=== PATIENT | male | born 1960 | race Caucasian/White ===

== ENCOUNTER 2020-10-24 01:30 | Emergency (ER) | payer MEDICARE, MEDICAID, SELFPAY ==
[2020-10-24 01:47] VITALS: BP 132/79; PULSE 60; RESP 18; TEMP 36.7; O2SAT 99; BMI 27.3
--- NOTE | 2020-10-24 01:50 | ECG_ITS ---
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 Measurements Intervals [place] Rate: 61 P: 33 KS: 195 QRS: -19 QRSD: 174 T: 52 QT: 432 QTc: 437 Interpretive Statements SINUS RHYTHM LEFT BUNDLE BRANCH BLOCK [120+ ms QRS DURATION, 80+ ms Q/S IN V1/V2, 85+ ms R IN I/aVL/V5/V6] Compared to ECG 01/28/2019 07:40:37 No significant changes Electronically Signed On 10-25-2020 12:22:39 CDT by Indy Sutton M.D. [id number]
--- NOTE | 2020-10-24 02:00 | W.ED.CHESTPA ---
HPI - Chest Pain General: Chief Complaint: Chest Pain Stated Complaint: ARM PAIN, BOTH SIDES Time Seen by Provider: 10/24/20 01:32 Source: patient Mode of arrival: ambulatory Limitations: other (poor historian) History of Present Illness: HPI narrative: 50-year-old male patient presents to the emergency department with bilateral upper arm pain and pain to the rt chest wall. He reports pain has been off and on for approximately a year, it has not changed. He reports last night and tonight, has not taken anything for the pain, states has not spoke to Dr Sanchez about his pain. He has not taken anything for pain, he is not able to describe his pain. He reports the pain is a, bad hurting . He denies fever chills cough or congestion. He denies heavy lifting or complaints of back pain. He is not able to give a family history, is not able to remember his medication with exception he takes a blood pressure pill. He states does not take aspirin on a daily basis. He denies nausea vomiting, denies pain radiating into his neck. MD complaint: chest pain and chest discomfort Timing of current episode: constant Prior episodes: Yes Onset: during rest Pain location: right chest Pain radiation: right arm and left arm Quality: other ( bad pain ) Relieving factors: nothing Exacerbating factors: nothing Associated symptoms: Reports no associated symptoms; Deny abdominal pain, diaphoresis, dyspnea, fever(s), nausea, palpitations or vomiting Treatment prior to arrival: none Review of Systems General: Reports: 10 or more systems reviewed and unremarkable except in HPI and below Const: Denies: fever(s), chills, body aches, fatigue, malaise or diaphoresis Eyes: Denies: blurry vision or eye redness ENMT: Denies: throat pain, dental pain or disequilibrium Card: Reports: chest pain; Denies: palpitations, irregular heart rhythm, swelling of feet/ankles, lightheadedness, dyspnea on exertion or orthopnea Resp: Denies: dyspnea, productive cough, non-productive cough, wheezing or chest congestion GI: Denies: abdominal pain, nausea, vomiting, hematemesis, heartburn, diarrhea or constipation : Denies: dysuria Musc: Reports: extremity pain (bilateral upper arms); Denies: neck pain or back pain Skin/Breast: Denies: rash or pruritus Neuro: Denies: headache(s), weakness in extremities or behavioral changes Psych: Denies: anxiety or depression Gray/Lymph: Denies: easy bruising PFSH ED PFSH: Medical History HTN (hypertension) Surgical History History of cholecystectomy Physical Exam Const: COMMON NORMALS: no acute distress, patient oriented x3, healthy appearing, alert and well nourished GENERAL APPEARANCE: cooperative, comfortable, well kempt, well developed and well hydrated; not in distress, not anxious, not ill appearing and not frail appearing NUTRITIONAL APPEARANCE: overweight ORIENTATION/CONSCIOUSNESS: Yes awake, Yes oriented to person, Yes oriented to place and Yes oriented to time HENMT: COMMON NORMALS: normocephalic, atraumatic, Normal external nose present and moist oral mucous membranes HEAD & SCALP: normal to inspection, normocephalic and atraumatic FACE & SINUS: normal facial exam and face symmetric NOSE: Normal external nose present, Normal nares present and No nasal polyps present MOUTH: Normal oral and palatal mucosa present, lip normal and tongue normal THROAT: posterior oropharynx normal, tonsils normal and uvula midline Eye: COMMON NORMALS: Equal, round and reactive pupils present and EOMs intact bilaterally GENERAL EYE: appearance normal, both eyes and all related structures PUPIL: Yes Equal, round and reactive pupils present Neck/C-Spine: COMMON NORMALS: full ROM, no lymphadenopathy and supple GENERAL: Yes normal visual inspection and Yes trachea midline CERVICAL SPINE: Yes cervical ROM normal Lymph: LYMPHATIC: no lymphadenopathy noted Chest: COMMONS NORMALS: normal inspection of the chest, normal palpation of entire chest wall and normal inspection of the breasts CHEST: Yes Symmetrical chest wall rise, No localized rib tenderness with anteroposterior compression, Yes tenderness pectoral muscle on the right and No Ecchymosis present Breast/axilla inspection: Yes normal inspection of the breasts Resp: COMMON NORMALS: normal respiratory effort, No retractions, No use of accessory muscles and clear to auscultation bilaterally EFFORT & INSPECTION: Yes able to speak in complete sentences, Yes symmetric chest movement, No respiratory distress, No labored and No audible wheezes AUSCULTATION: clear to auscultation bilaterally Cardio: COMMON NORMALS: regular rate, regular rhythm, S1 normal heart sound present, S2 normal heart sound present and Peripheral pulses 2+ throughout RATE: regular rate RHYTHM: regular rhythm HEART SOUNDS: S1 normal heart sound present and S2 normal heart sound present PERIPHERAL PULSES: Peripheral pulses 2+ throughout GI: COMMON NORMALS: Normal to inspection, nondistended, normoactive bowel sounds present, Soft to palpation and non-tender INSPECTION: Yes normal to inspection, No abdominal wall ecchymosis, No abdominal distension, Yes central obesity and Yes other (Negative Lira's) PALPATION: Yes Soft to palpation, No Guarding due to palpation present (GI) and No Rigid due to palpation : COMMON NORMALS: Yes no CVA tenderness BLADDER/KIDNEY EXAM: Yes no CVA tenderness Back/Pelvis: COMMON NORMALS: no CVA tenderness, thoracic and lumbar spine normal to inspection, no thoracic nor lumbar tenderness, thoraco-lumbar ROM normal and straight leg raise negative bilaterally Extremity: COMMON NORMALS: normal to inspection, full ROM, capillary refill normal, no calf tenderness and no pedal edema GENERAL: Yes normal exam except as noted OTHER: movement, passive and active to the BUE did not reproduce pain, no tenderness to the bilateral upper arms with palpation Neuro: COMMON NORMALS: patient oriented x3 and no focal motor deficits SENSORIUM/ORIENTATION: Yes alert, Yes oriented to person, Yes oriented to place and Yes oriented to time GAIT: Yes Normal gait present MOTOR EXAM: 5/5 motor strength present throughout Psych: COMMON NORMALS: mental status grossly normal, Normal thought process present and cooperative APPEARANCE: Yes well kempt ACTIVITY/MOTOR BEHAVIOR: Yes appropriate eye contact THOUGHT PROCESS: Normal thought process present Skin: COMMON NORMALS: no rashes or lesions noted and turgor normal GENERAL SKIN EXAM: no rashes or lesions noted and turgor normal Course Vital Signs: Vital signs: Vital Signs Temperature 98.1 F 10/24/20 01:47 Pulse Rate 62 10/24/20 02:39 Respiratory Rate 16 10/24/20 02:39 Blood Pressure 132/79 10/24/20 02:39 Pulse Oximetry 95 10/24/20 02:39 MDM - Chest Pain MDM Narrative: Medical decision making narrative: 60-year-old male patient presents to the emergency department with bilateral upper arm pain and pain to the right chest wall. EKG with left bundle branch block with rate of 61; blood pressure was normal, vital signs were normal, he remained sinus rhythm to the monitor. He was medicated with Toradol for pain. Prescription for ibuprofen was provided, advised to follow-up with his primary care provider for further evaluation. He did not exhibit nausea vomiting, shortness of breath nor did he complained of pain radiating to the neck. He does have history of hypertension, well controlled, family history negative for cardiac disease, heart score 3. Patient symptoms are less likely from cardiac origin. Patient was diagnosed with myalgia and chest pain, probable musculoskeletal. Symptoms have been present for 1 year and have not changed. Chest x-ray without acute disease. Lab Data: Labs: Lab Results 10/24/20 10/24/20 10/24/20 Range/Units 02:00 02:00 02:00 WBC 10.9 H (4.0-10.0) 10^3/ uL RBC 4.50 (4.1-5.3) 10^6/u L Hgb 14.6 (11.7-16.6) g/dL Hct 43.8 (42.0-52.0) % MCV 97.3 H (80-94) fL MCH 32.4 (28.0-34.0) pg MCHC 33.3 (30.0-36.0) g/dL RDW 12.3 (12.1-15.1) % Plt Count 196 (130-400) 10^3/c mm MPV 12.6 H (7.4-10.4) fL Neut % (Auto) 71.3 % Lymph % (Auto) 17.2 % Patrick % (Auto) 6.8 % Eos % (Auto) 3.9 % Baso % (Auto) 0.6 % Neut # (Auto) 7.76 H (1.8-7.7) 10^3/u L Lymph # (Auto) 1.9 (0.8-4.8) 10^3/u L Patrick # (Auto) 0.7 (0.2-0.9) 10^3/u L Eos # (Auto) 0.4 (0.0-0.8) 10^3/u L Baso # (Auto) 0.1 (0.0-0.1) 10^3/u L Nucleated RBC % (a uto) 0 % Nucleated RBCs # 0.0 /100WBC Sodium 139 (136-145) mmol/L Potassium 3.5 (3.5-5.1) mmol/L Chloride 100 (98-107) mmol/L Carbon Dioxide 29 (22-29) mmol/L Anion Gap 13.5 (5-19) BUN 14 (8-23) mg/dL Creatinine 0.9 (0.7-1.2) mg/dL GFR Calculation 85.8 L (90-130) mL/min Glucose 97 (65-115) mg/dL Calculated Osmolal ity 288 (285-295) mOsm/k g Calcium 8.3 L (8.5-10.5) mg/dL Total Bilirubin 0.3 (0.15-1.2) mg/dL AST 21 (0-40) U/L ALT 31 (0-41) U/L Alkaline Phosphata se 126 (40-130) IU/L Troponin T Baselin e 9 (0-15) ng/L Total Protein 6.5 L (6.6-8.7) g/dL Albumin 4.1 (3.5-5.2) g/dL Globulin 2.4 (1.3-4.6) g/dL Lipase 24 (13-60) U/L Discharge Plan Discharge Patient Disposition: Home Clinical Impression: Myalgia Chest pain Qualifiers: Chest pain type: other chest pain Qualified Code(s): R07.89 - Other chest pain Condition: Stable Prescriptions: New IBU 600 mg tablet 600 mg PO TID PRN (Reason: pain) Qty: 20 RF: 0 Discharge Orders: Discharge ED (Routine); Ordered 10/24/20 Ordered By: Ariadna Brewer Referrals: Matthew Sanchez MD [Primary Care Provider] - Discharge Diet: Cardiac Discharge Activity: Resume usual activity Patient Instructions: Chest Pain - Noncardiac, Chest Pain (ED), Opioid Safety Activity Restrictions/Additional Instructions: Follow-up with Dr. Sanchez this week for reevaluation Take ibuprofen with food, may take Tylenol as needed for pain Return to the emergency department if you develop worsening symptoms such as shortness of breath, chest pain that worsens with exertion, pain that radiates into your jaw or neck or inability to catch her breath Coding Level of Care Code ED Package Center Supervisor for Chg Fwd Exam Comprehensive
--- NOTE | 2020-10-24 02:01 | XRR_ITS ---
PROCEDURE INFORMATION: Exam: XR Chest Exam date and time: 10/24/2020 2:19 AM Age: 60 years old Clinical indication: Chest pain; Type not specified; Prior surgery; Surgery type: Gb; Patient HX: Cp and bilateral arm pain x 1 year, worse tonight TECHNIQUE: Imaging protocol: XR of the chest. Views: 1 view. COMPARISON: CR Chest 1 [place] [id number] 01/28/2019 8:01 AM FINDINGS: Lungs: Unremarkable. No consolidation. Pleural spaces: Unremarkable. No pleural effusion. No pneumothorax. Heart/Mediastinum: Unremarkable. No cardiomegaly. Bones/joints: Unremarkable. XR/XR chest 1V portable [id number] IMPRESSION: No acute findings. Stable chest radiograph compared with 01/28/2019.
[2020-10-24 02:09] LABS: Basophils # 0.1 10^3/uL (0.0-0.1); Basophils % 0.6 %; Eosinophils # 0.4 10^3/uL (0.0-0.8); Eosinophils % 3.9 %; Hematocrit 43.8 % (42.0-52.0); Hemoglobin 14.6 g/dL (11.7-16.6); Lymphocytes # 1.9 10^3/uL (0.8-4.8); Lymphocytes % 17.2 %; Mean Corpuscular HGB Conc 33.3 g/dL (30.0-36.0); Mean Corpuscular Hemoglobin 32.4 pg (28.0-34.0); Mean Corpuscular Volume 97.3 fL (80-94); Mean Platelet Volume 12.6 fL (7.4-10.4); Monocytes # 0.7 10^3/uL (0.2-0.9); Monocytes % 6.8 %; Neutrophils # 7.76 10^3/uL (1.8-7.7); Neutrophils % 71.3 %; Nucleated Red Blood Cells % 0 %; Platelet Count 196 10^3/cmm (130-400); Red Cell Distribution Width 12.3 % (12.1-15.1); White Blood Count 10.9 10^3/uL (4.0-10.0)
[2020-10-24 02:32] LABS: Alanine Aminotransferase 31 U/L (0-41); Albumin Level 4.1 g/dL (3.5-5.2); Alkaline Phosphatase 126 IU/L (40-130); Anion Gap 13.5 (5-19); Aspartate Amino Transferase 21 U/L (0-40); Blood Urea Nitrogen 14 mg/dL (8-23); Calcium 8.3 mg/dL (8.5-10.5); Carbon Dioxide 29 mmol/L (22-29); Chloride 100 mmol/L (98-107); Globulin 2.4 g/dL (1.3-4.6); Glomerular Filtration Rate 85.8 mL/min (90-130); Glucose 97 mg/dL (65-115); Lipase 24 U/L (13-60); Osmolality Calculated 288 mOsm/kg (285-295); Potassium 3.5 mmol/L (3.5-5.1); Sodium 139 mmol/L (136-145); Total Bilirubin 0.3 mg/dL (0.15-1.2); Total Protein 6.5 g/dL (6.6-8.7)
[2020-10-24 02:34] LABS: Troponin(5th) Baseline 9 ng/L (0-15)
[2020-10-24 02:39] VITALS: BP 132/79; PULSE 62; RESP 16; O2SAT 95
[2020-10-24] MEDS: aspirin 81 mg Chew Tablet 324 MG PO (02:41)
[2020-10-24] MEDS: acetaminophen 500 mg Tablet 1000 MG PO (03:05)
[2020-10-24 03:10] VITALS: BP 119/70; PULSE 62; RESP 18; O2SAT 98
== END 2020-10-24 03:11 | disposition home or self-care (01) ==
PROVIDERS: Emergency Provider Nurse Practitioner Family; PCP Family Medicine
DX: R07.89 Other chest pain (principal); M79.10 Myalgia, unspecified site; I10 Essential (primary) hypertension
CPT/HCPCS: 71045; 80053; 83690; 84484; 85025; 93005; 99283

== ENCOUNTER 2020-11-29 08:11 | Outpatient (CLI) | payer MEDICARE, MEDICAID, SELFPAY ==
[2020-11-29 09:19] VITALS: BMI 26.6
--- NOTE | 2020-11-29 09:31 | ECG_ITS ---
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 Interpretive Statements Name of study Lexiscan stress test Indication: New onset left bundle branch block PROCEDURE: At the baseline, the blood pressure was 118/77 mmHg, oxygen saturation 96% with a heart rate of 64 bpm. The electrocardiogram showed normal sinus rhythm, normal axis. Left bundle branch block. The Lexiscan was infused over a period of 20 seconds. A total of 0.4 milligrams of Lexiscan was infused. The stress phase was continued for a total of 5 minutes. Heart rate at the end of the stress phase was 69 bpm, oxygen saturation 95% with a blood pressure of 130/77 mmHg. The EKG at the peak infusion revealed sinus rhythm with left bundle branch block. Sestamibi was injected 20 seconds after the Lexiscan infusion. Blood pressure at the end of the recovery phase was 130/68 mmHg, oxygen saturation 96% with a heart rate of 74 beats per minute. CONCLUSION: 1. Nondiagnostic EKG with LexiScan infusion given baseline left bundle branch block. 2. No LexiScan induced chest pain or cardiac arrhythmia. 3. Normal blood pressure and heart rate response. 4. Sestamibi/sestamibi perfusion scan pending; see separate report. Electronically Signed On 12-03-2020 18:05:40 CDT by Indy Sutton M.D. [id number]
--- NOTE | 2020-11-29 09:31 | NMCV_ITS ---
NM alexander perf SPECT r/s* [id number] Chris Guevara Age: 60 Gender: M : 1960 Exam Date: 11/29/2020 09:56 Ordering Phys: Duran Calhoun M.D ([email or web address]) Technologist: MEENA Hernandez Exam Location: [facility] Indications: NEW ONSET LBBB STRESS TEST Please see separate stress test report in [facility] for full findings IMAGE PROTOCOL Rest/Stress 1 Lexiscan Day Radiopharmaceutical Dose (mCi) Administration Site Administered by Rest: Tc-99m 10.8 IV MEENA Walker Sestamibi Stress:Tc-99m 32.7 IV MEENA Walker Sestamibi Rest: 29-Nov-2020 60 Discovery 630 Stress: 29-Nov-2020 30 Discovery 630 0.4mg Lexiscan. Supine position only as patient was unable to lay prone. SPECT RESULTS Technical Quality: Good Raw Data Analysis: Normal Image Corrections: No attenuation or motion correction applied Summed Stress Score: 7 Summed Rest Score: 16 Summed Difference Score: 0 PERFUSION FINDINGS There is a large in size, fixed perfusion defect in the apical, apical septal, apical lateral and apical inferior silverio that improves with stress. This is likely secondary to attenuation artifact vs prior infarct. No evidence of ischemia FUNCTIONAL RESULTS (calculated via Gated SPECT) Stress Image LV EF (%): 70 Stress EDV (mL):84 TID: 1.06 Stress ESV (mL):25 FUNCTIONAL FINDINGS: LV systolic function is normal. Moderate hypokinesis of the apical wall is noted IMPRESSIONS 1. Abnormal myocardial perfusion imaging with infarct vs attenuation artifact noted in the apical, apical septal, apical lateral and apical inferior silverio. No evidence of ischemia 2. LV systolic function is overall normal, however there is hypokinesis of the apical wall noted Duran Calhoun MD (Electronically Signed) Final Date: 01 Dec 2020 14:06 S
--- NOTE | 2020-11-29 09:44 | PC.NURSE ---
orders found from both dr osborne and dr page office. due to dr page orders being the newest date we will go ahead with the [facility]. called dr osborne nurse and let them know of the change in orders.
[2020-11-29 10:41] VITALS: BP 130/68; PULSE 75
[2020-11-29] MEDS: regadenoson 0.4 Mg/5 ml Syringe IVP (10:42)
== END 2020-11-29 08:12 | disposition home or self-care (01) ==
LOC: RAD 08:14 → CDL 09:09
PROVIDERS: PCP Family Medicine; Visit Provider Family Medicine
DX: I44.7 Left bundle-branch block, unspecified (principal)
CPT/HCPCS: 78452; 93017; A9500; J2785

== ENCOUNTER 2020-12-08 07:45 | Outpatient (CLI) | payer MEDICARE, MEDICAID, SELFPAY ==
--- NOTE | 2020-12-08 08:00 | USCV_ITS ---
Chris Guevara Age: 60 Gender: M : 1960 Exam Date: 12/08/2020 08:16 Ordering Phys: Matthew Sanchez MD Technologist: Davida Irving [place] [facility] [place] Indication: NEW ONSET LEFT BUNDLE BRANCH BLOCK BP: 130 / 67 HR: 64 Rhythm: Sinus Technical Quality: Adequate MEASUREMENTS (Male / Female) Normal Values 2D ECHO LV Diastolic Diameter PLAX 3.8 cm 4.2 - 5.9 / 3.9 - 5.3 cm LV Systolic Diameter PLAX 2.5 cm IVS Diastolic Thickness 1.3 cm 0.6 - 1.0 / 0.6 - 0.9 cm IVS Systolic Thickness 2.0 cm LVPW Diastolic Thickness 1.8 cm 0.6 - 1.0 / 0.6 - 0.9 cm LVPW Systolic Thickness 1.5 cm LVOT Diameter 2.0 cm LV Ejection Fraction 2C AL 46.1 % LA Diameter 3.5 cm LA Width 3.2 cm LA Height 4.2 cm RA Width 3.2 cm RA Height 2.8 cm Aorta at Sinotubular Diameter 2.4 cm M-MODE LV Diastolic Diameter MM 5.1 cm 4.2 - 5.9 / 3.9 - 5.3 cm LV Systolic Diameter MM 4.2 cm LV Ejection Fraction MM Teich 36.0 % IVS Diastolic Thickness MM 1.3 cm 0.6 - 1.0 / 0.6 - 0.9 cm IVS Systolic Thickness MM 1.9 cm LVPW Diastolic Thickness MM 1.5 cm 0.6 - 1.0 / 0.6 - 0.9 cm LVPW Systolic Thickness MM 2.1 cm Aortic Annulus Diameter 3.3 cm LA Ao Ratio MM 1.0 MV E Point Septal Separation 0.2 cm DOPPLER AV Peak Velocity 109.0 cm/s LVOT Peak Velocity 90.0 cm/s AV Area Cont Eq vti 2.7 cm squared AV Area Cont Eq pk 2.6 cm squared MV Peak Velocity 97.0 cm/s MV Area PHT 3.9 cm squared Mitral E to A Ratio 0.8 MV E' Velocity 32.5 cm/s Mitral E to MV E' Ratio 9.1 Mitral E to LV E' Lateral Ratio 8.8 Mitral E to LV E' Septal Ratio 9.5 TR Peak Velocity 121.0 cm/s TR Peak Gradient 5.9 mmHg TV Peak E Velocity 45.0 cm/s Right Atrial Pressure 3.0 mmHg Pulmonary Artery Systolic Pressu 8.9 mmHg PV Peak Velocity 130.0 cm/s RV Acceleration Time 0.1 s RV Ejection Time 0.3 s RV AcT/ET 0.3 FINDINGS Left Ventricle Normal left ventricular cavity size. Mildly reduced left ventricular systolic function. Global wall hypokinesis. Left ventricular ejection fraction is estimated at 50 %. Grade I/IV diastolic dysfunction (abnormal relaxation filling pattern), normal to mildly elevated filling pressures. Right Ventricle The right ventricle is normal in size and function. Right Atrium The right atrium is normal in size. Left Atrium The left atrium is normal in size. Mitral Valve Structurally normal mitral valve without significant stenosis or prolapse. There is no mitral regurgitation. Aortic Valve Structurally normal aortic valve without significant sclerosis or stenosis. There is no aortic regurgitation. Tricuspid Valve Structurally normal tricuspid valve without significant stenosis or regurgitation. Pulmonary artery systolic pressure is normal. Pulmonic Valve Structurally normal pulmonic valve without significant stenosis. There is no pulmonic regurgitation. Pericardium Normal pericardium without effusion. Aorta Normal ascending aorta dimension. CONCLUSIONS 1-Normal left ventricular cavity size. Mildly reduced left ventricular systolic function. Global wall hypokinesis. Left ventricular ejection fraction is estimated at 50 %. Grade I/IV diastolic dysfunction (abnormal relaxation filling pattern), normal to mildly elevated filling pressures. 2-No significant valve abnormalities. 3-There is no pericardial effusion. 4-Pulmonary artery systolic pressure is within normal limits. 5-Right atrial pressure is around 5 mm of mercury. 6-No significant change since the prior echocardiogram study of 04/16/2017. Ricardo Aj MD (Electronically Signed) Final Date: 10 December 2020 14:09 S
== END 2020-12-08 07:46 | disposition home or self-care (01) ==
LOC: RAD 07:49
PROVIDERS: PCP Family Medicine; Visit Provider Family Medicine
DX: I44.7 Left bundle-branch block, unspecified (principal)
CPT/HCPCS: 93306

== ENCOUNTER 2021-02-19 23:34 | Emergency (ER) | payer MEDICARE, MEDICAID, SELFPAY ==
[2021-02-19 23:35] VITALS: BP 118/62; PULSE 73; RESP 17; TEMP 36.6; O2SAT 94; BMI 25.9
--- NOTE | 2021-02-19 23:46 | ECG_ITS ---
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 Measurements Intervals [place] Rate: 68 P: 22 VT: 192 QRS: -19 QRSD: 165 T: 96 QT: 436 QTc: 464 Interpretive Statements SINUS RHYTHM LEFT BUNDLE BRANCH BLOCK [120+ ms QRS DURATION, 80+ ms Q/S IN V1/V2, 85+ ms R IN I/aVL/V5/V6] Compared to ECG 10/24/2020 02:00:07 No significant changes Electronically Signed On 02-20-2021 23:55:44 CDT by Alka Orourke M.D. [id number]
--- NOTE | 2021-02-19 23:46 | XRR_ITS ---
PROCEDURE INFORMATION: Exam: XR Chest Exam date and time: 02/19/2021 11:46 PM Age: 61 years old Clinical indication: Pain; Left-sided; Additional info: Cp TECHNIQUE: Imaging protocol: XR of the chest. Views: 1 view. COMPARISON: CR XR chest 1V portable [id number] 10/24/2020 2:18 AM FINDINGS: Lungs: Lungs are clear bilaterally. Pleural spaces: No pleural effusion. No pneumothorax. Heart/Mediastinum: Stable mild enlargement of the cardiac silhouette. Mediastinal contours are unremarkable. Bones/joints: Stable deformity of the proximal right humerus suspicious for sequela of remote trauma. XR/XR chest 1V portable [id number] IMPRESSION: 1. No acute cardiopulmonary process. 2. Incidental/nonacute findings are listed in the report.
[2021-02-19 23:51] VITALS: BP 118/62; PULSE 64; RESP 12; O2SAT 93
[2021-02-19 23:59] LABS: Basophils # 0.1 10^3/uL (0.0-0.1); Basophils % 0.6 %; Eosinophils # 0.4 10^3/uL (0.0-0.8); Eosinophils % 4.4 %; Hematocrit 43.8 % (42.0-52.0); Hemoglobin 14.6 g/dL (11.7-16.6); Lymphocytes # 1.8 10^3/uL (0.8-4.8); Lymphocytes % 18.7 %; Mean Corpuscular HGB Conc 33.3 g/dL (30.0-36.0); Mean Corpuscular Hemoglobin 32.6 pg (28.0-34.0); Mean Corpuscular Volume 97.8 fl (80-94); Mean Platelet Volume 13.2 fL (7.4-10.4); Monocytes # 0.6 10^3/uL (0.2-0.9); Monocytes % 6.5 %; Neutrophils # 6.71 10^3/uL (1.8-7.7); Neutrophils % 69.5 %; Nucleated Red Blood Cells % 0 %; Platelet Count 178 10^3/cmm (130-400); Red Blood Count 4.48 10^6/uL (4.1-5.3); Red Cell Distribution Width 12.4 % (12.1-15.1); White Blood Count 9.7 10^3/uL (4.0-10.0)
[2021-02-20 00:06] LABS: D Dimer 0.37 ug/mIFEU (0-0.59)
--- NOTE | 2021-02-20 00:11 | ED_ITS ---
HPI - Chest Pain General: Chief Complaint: Chest Pain Stated Complaint: CP Time Seen by Provider: 02/19/21 23:46 History of Present Illness: HPI narrative: 61-year-old male with a history of hypertension. He also has a history of a left bundle branch block. He is experienced chest pain today, mainly left-sided chest pain and left-sided arm heaviness. He does not have a prior history of coronary disease. He has a recent Lexiscan that was negative for inducible ischemia. Pain is improved now, but he says is still mildly there. He received aspirin and nitroglycerin in route. He does states that he has had panic attacks . He lost his father recently. He has a history of developmental delay, and lives with his at [facility]. MD complaint: chest pain Pertinent past history: other Onset (ago): hour(s) Timing of current episode: episodic and still present Prior episodes: Yes Onset: during rest Pain location: substernal and left chest Pain radiation: left arm Severity: moderate Quality: tightness and aching Relieving factors: nothing Exacerbating factors: nothing Associated symptoms: Reports dyspnea; Deny abdominal pain, diaphoresis, fever(s), leg edema, nausea, palpitations or vomiting Treatment prior to arrival: aspirin and nitroglycerin Review of Systems Const: Denies: fever(s) or diaphoresis Eyes: Denies: change in vision Card: Denies: palpitations Resp: Reports: dyspnea; Denies: productive cough or non-productive cough GI: Denies: abdominal pain, nausea or vomiting Neuro: Denies: numbness in extremities [facility] ED PFSH: Medical History (Updated 02/20/21 @ 03:24 by Grant Moser DO) HTN (hypertension) Surgical History History of cholecystectomy Course Vital Signs: Vital signs: Vital Signs Temperature 97.9 F 02/19/21 23:35 Pulse Rate 70 02/20/21 03:20 Respiratory Rate 13 02/20/21 03:20 Blood Pressure 158/62 02/20/21 03:20 Pulse Oximetry 92 02/20/21 03:20 MDM - Chest Pain MDM Narrative: Medical decision making narrative: EKG shows normal sinus rhythm with left bundle branch block, which is not new for this patient. There are no acute ST changes.. Troponin did not elevated 2 hours. Other laboratory is benign. Chest x-ray is negative. His pain is improved. He'll be allowed home Lab Data: Labs: Lab Results 02/19/21 02/19/21 02/19/21 Range/Units 23:18 23:18 23:18 WBC 9.7 (4.0-10.0) 10^3/ uL RBC 4.48 (4.1-5.3) 10^6/u L Hgb 14.6 (11.7-16.6) g/dL Hct 43.8 (42.0-52.0) % MCV 97.8 H (80-94) fl MCH 32.6 (28.0-34.0) pg MCHC 33.3 (30.0-36.0) g/dL RDW 12.4 (12.1-15.1) % Plt Count 178 (130-400) 10^3/c mm MPV 13.2 H (7.4-10.4) fL Neut % (Auto) 69.5 % Lymph % (Auto) 18.7 % Mckenzie % (Auto) 6.5 % Eos % (Auto) 4.4 % Baso % (Auto) 0.6 % Neut # (Auto) 6.71 (1.8-7.7) 10^3/u L Lymph # (Auto) 1.8 (0.8-4.8) 10^3/u L Mckenzie # (Auto) 0.6 (0.2-0.9) 10^3/u L Eos # (Auto) 0.4 (0.0-0.8) 10^3/u L Baso # (Auto) 0.1 (0.0-0.1) 10^3/u L Nucleated RBC % (a uto) 0 % Nucleated RBCs # 0.0 /100WBC D-Dimer 0.37 (0-0.59) ug/mIFE U Sodium 141 (136-145) mmol/L Potassium 3.7 (3.5-5.1) mmol/L Chloride 102 (98-107) mmol/L Carbon Dioxide 30 H (22-29) mmol/L Anion Gap 12.7 (5-19) BUN 11 (8-23) mg/dL Creatinine 0.8 (0.7-1.2) mg/dL GFR Calculation 98.0 (90-130) mL/min Glucose 118 H (65-115) mg/dL Calculated Osmolal ity 292 (285-295) mOsm/k g Calcium 8.3 L (8.5-10.5) mg/dL Total Bilirubin 0.3 (0.15-1.2) mg/dL AST 15 (0-40) U/L ALT 17 (0-41) U/L Alkaline Phosphata se 118 (40-130) IU/L Creatine Kinase 52 (39-308) U/L Troponin T Baselin e (0-15) ng/L Troponin T 120 Min [place] (0-15) ng/L Delta Troponin T (0-10) ABS# NT-Pro-B Natriuret Pep 11 (0-125) pg/mL Total Protein 6.3 L (6.6-8.7) g/dL Albumin 4.1 (3.5-5.2) g/dL Globulin 2.2 (1.3-4.6) g/dL 02/19/21 02/20/21 Range/Units 23:18 01:25 WBC (4.0-10.0) 10^3/ uL RBC (4.1-5.3) 10^6/u L Hgb (11.7-16.6) g/dL Hct (42.0-52.0) % MCV (80-94) fl MCH (28.0-34.0) pg MCHC (30.0-36.0) g/dL RDW (12.1-15.1) % Plt Count (130-400) 10^3/c mm MPV (7.4-10.4) fL Neut % (Auto) % Lymph % (Auto) % Mckenzie % (Auto) % Eos % (Auto) % Baso % (Auto) % Neut # (Auto) (1.8-7.7) 10^3/u L Lymph # (Auto) (0.8-4.8) 10^3/u L Mckenzie # (Auto) (0.2-0.9) 10^3/u L Eos # (Auto) (0.0-0.8) 10^3/u L Baso # (Auto) (0.0-0.1) 10^3/u L Nucleated RBC % (a uto) % Nucleated RBCs # /100WBC D-Dimer (0-0.59) ug/mIFE U Sodium (136-145) mmol/L Potassium (3.5-5.1) mmol/L Chloride (98-107) mmol/L Carbon Dioxide (22-29) mmol/L Anion Gap (5-19) BUN (8-23) mg/dL Creatinine (0.7-1.2) mg/dL GFR Calculation (90-130) mL/min Glucose (65-115) mg/dL Calculated Osmolal ity (285-295) mOsm/k g Calcium (8.5-10.5) mg/dL Total Bilirubin (0.15-1.2) mg/dL AST (0-40) U/L ALT (0-41) U/L Alkaline Phosphata se (40-130) IU/L Creatine Kinase (39-308) U/L Troponin T Baselin e 8 (0-15) ng/L Troponin T 120 Min [place] 6.49 (0-15) ng/L Delta Troponin T -1.51 L (0-10) ABS# NT-Pro-B Natriuret Pep (0-125) pg/mL Total Protein (6.6-8.7) g/dL Albumin (3.5-5.2) g/dL Globulin (1.3-4.6) g/dL Discharge Plan Discharge Patient Disposition: Home Clinical Impression: Chest pain Qualifiers: Chest pain type: unspecified Qualified Code(s): R07.9 - Chest pain, unspecified Condition: Stable Prescriptions: No Action lisinopril 20 mg tablet 20 mg PO DAILY RF: 0 alprazolam 0.25 mg tablet 0.25 mg PO DAILY RF: 0 allopurinol 300 mg tablet 300 mg PO DAILY RF: 0 metoprolol succinate 25 mg tablet extended release 24 hr 25 mg PO DAILY RF: 0 rosuvastatin 20 mg tablet 20 mg PO DAILY RF: 0 chlorthalidone 25 mg tablet 12.5 mg PO DAILY RF: 0 Discharge Orders: Discharge ED (Routine); Ordered 02/20/21 Ordered By: Grant Moser Referrals: Matthew Sanchez MD [Primary Care Provider] - 1-3 days Patient Instructions: Chest Pain (ED) Activity Restrictions/Additional Instructions: Return for worsening chest pain, shortness of breath, fever greater than 100, cough, any other concerning symptoms. Coding Level of Care Code ED Brimming Machine Operator for Bekah Pollock
[2021-02-20 00:16] LABS: Troponin(5th) Baseline 8 ng/L (0-15)
[2021-02-20 00:24] LABS: Alanine Aminotransferase 17 U/L (0-41); Albumin Level 4.1 g/dL (3.5-5.2); Alkaline Phosphatase 118 IU/L (40-130); Anion Gap 12.7 (5-19); Aspartate Amino Transferase 15 U/L (0-40); Blood Urea Nitrogen 11 mg/dL (8-23); Calcium 8.3 mg/dL (8.5-10.5); Carbon Dioxide 30 mmol/L (22-29); Chloride 102 mmol/L (98-107); Creatine Phosphokinase 52 U/L (39-308); Globulin 2.2 g/dL (1.3-4.6); Glucose 118 mg/dL (65-115); NT Pro B Type Natriuretic Pept 11 pg/mL (0-125); Osmolality Calculated 292 mOsm/kg (285-295); Potassium 3.7 mmol/L (3.5-5.1); Sodium 141 mmol/L (136-145); Total Bilirubin 0.3 mg/dL (0.15-1.2); Total Protein 6.3 g/dL (6.6-8.7)
[2021-02-20] MEDS: ondansetron 2 mg/ML SDV 2 mL 4 MG IVP (01:02)
[2021-02-20 01:06] VITALS: BP 100/63; PULSE 70; RESP 16; RESP 17; O2SAT 95; O2SAT 96
[2021-02-20] MEDS: morphine 4 mg/mL SDV 1 mL 2 MG IVP (01:06)
[2021-02-20 01:45] VITALS: BP 97/64; PULSE 70; RESP 14; O2SAT 94
[2021-02-20 01:59] LABS: Troponin 5 2HR 6.49 ng/L (0-15)
[2021-02-20 02:01] LABS: Troponin 5 2HR Delta -1.51 ABS# (0-10)
[2021-02-20 03:20] VITALS: BP 158/62; PULSE 70; RESP 13; O2SAT 92
[2021-02-20 04:45] VITALS: BP 158/62; PULSE 70; RESP 13; O2SAT 94
--- NOTE | 2021-02-20 05:46 | ECG_ITS ---
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 Measurements Intervals [place] Rate: 64 P: 36 [place]: 181 QRS: -21 QRSD: 161 T: 85 QT: 414 QTc: 428 Interpretive Statements SINUS RHYTHM LEFT BUNDLE BRANCH BLOCK [120+ ms QRS DURATION, 80+ ms Q/S IN V1/V2, 85+ ms R IN I/aVL/V5/V6] Compared to ECG 10/24/2020 02:00:07 No significant changes Electronically Signed On 02-21-2021 0:07:08 CDT by Alka Orourke M.D. [id number]
== END 2021-02-20 04:46 | disposition home or self-care (01) ==
PROVIDERS: Emergency Provider Emergency Medicine; PCP Family Medicine
DX: R07.9 Chest pain, unspecified (principal); I10 Essential (primary) hypertension
CPT/HCPCS: 71045; 80053; 82550; 83880; 84484; 85025; 85378; 93005; 96374; 96375; 99284; J2270; J2405

== ENCOUNTER 2021-03-30 08:57 | Emergency (ER) | payer MEDICARE, MEDICAID, SELFPAY ==
[2021-03-30 09:02] VITALS: BP 127/75; PULSE 78; RESP 16; TEMP 36.7; O2SAT 95
--- NOTE | 2021-03-30 09:02 | W.ED.AMS ---
HPI - Altered Mental Status General: Chief Complaint: Altered Mental Status Stated Complaint: CONFUSION Time Seen by Provider: 03/30/21 09:02 History of Present Illness: HPI narrative: 61-year-old male presents to the emergency room via EMS with a complaint of confusion. He was at work per his report became confused and was brought in via EMS. There is no family members at the bedside no other report given. Patient is able to recognize me from her previous encounter. He is also able to give time date place. Is able remember he is at work but cannot tell me specific details. He denies any history of chest pain abdominal pain or shortness of breath. He denies any trauma. He denies any history of seizures. No recent fever cough short of breath. MD complaint: altered mental status and confusion Onset (ago): minute(s) Severity: moderate Associated symptoms: Deny auditory hallucinations, visual hallucinations, delusions, depression, homicidal ideation, racing thoughts or suicidal ideation Review of Systems Const: Denies: fever(s), chills, body aches, change in appetite, fatigue or malaise ENMT: Denies: throat pain, ear or mastoid pain, nasal discharge or nasal congestion Card: Denies: chest pain, edema, dyspnea on exertion or orthopnea Resp: Denies: dyspnea, productive cough or non-productive cough GI: Denies: abdominal pain, nausea, vomiting, hematemesis, coffee ground emesis, diarrhea, constipation, bloating, hematochezia or melena : Denies: flank pain, dysuria, urinary frequency or urinary urgency Skin/Breast: Denies: rash or pruritus Psych: Denies: depression, visual hallucinations, auditory hallucinations, suicidal ideation or homicidal ideation [facility] ED PFSH: Medical History HTN (hypertension) Surgical History History of cholecystectomy Physical Exam Const: COMMON NORMALS: no acute distress GENERAL APPEARANCE: cooperative and comfortable HENMT: COMMON NORMALS: normocephalic, atraumatic and hearing grossly normal bilaterally HEAD & SCALP: normocephalic and atraumatic Neck/C-Spine: COMMON NORMALS: full ROM, no lymphadenopathy, supple and no JVD Lymph: LYMPHATIC: no lymphadenopathy noted and no lymphedema noted Resp: COMMON NORMALS: normal respiratory effort, No retractions, No use of accessory muscles and clear to auscultation bilaterally AUSCULTATION: clear to auscultation bilaterally Cardio: COMMON NORMALS: no JVD, regular rate, regular rhythm and No murmurs present (Cardio) RATE: regular rate RHYTHM: regular rhythm GI: COMMON NORMALS: Soft to palpation and No hepatosplenomegaly present AUSCULTATION: Yes normoactive bowel sounds PALPATION: Yes Soft to palpation, No Tenderness to palpation present (GI), No Guarding due to palpation present (GI) and Yes No hepatosplenomegaly present Extremity: COMMON NORMALS: normal to inspection, capillary refill normal, no clubbing, cyanosis or edema, no calf tenderness and no pedal edema Psych: THOUGHT CONTENT: No delusions Skin: COMMON NORMALS: no rashes or lesions noted GENERAL SKIN EXAM: no rashes or lesions noted Course Vital Signs: Vital signs: Vital Signs Temperature 98.0 F 03/30/21 09:02 Pulse Rate 70 03/30/21 13:00 Respiratory Rate 15 03/30/21 13:00 Blood Pressure 110/78 03/30/21 13:00 Pulse Oximetry 95 03/30/21 13:00 MDM - Altered Mental Status MDM Narrative: Medical decision making narrative: Patient awake and alert oriented x3. He is able to answer all questions. Reviewed labs and imaging and EKGs as found in the chart serial troponins negative we will discharge him home and follow-up with his primary care doctor. Continue all current medications with exception of recommend that he avoid the Lomotil and decrease his Xanax use. Lab Data: Labs: Lab Results 03/30/21 03/30/21 03/30/21 09:55 09:55 09:55 WBC 8.7 10^3/uL 10^3/ uL (4.0-10.0) RBC 4.37 10^6/uL 10^6 /uL (4.1-5.3) Hgb 14.4 g/dL g/dL (11.7-16.6) Hct 42.6 % % (42.0-52.0) MCV 97.5 fl H fl (80-94) MCH 33.0 pg pg (28.0-34.0) MCHC 33.8 g/dL g/dL (30.0-36.0) RDW 12.2 % % (12.1-15.1) Plt Count 175 10^3/cmm 10^3 /cmm (130-400) MPV 12.6 fL H fL (7.4-10.4) Neut % (Auto) 77.1 % % Lymph % (Auto) 12.6 % % [place] % (Auto) 6.2 % % Eos % (Auto) 3.2 % % Baso % (Auto) 0.6 % % Neut # (Auto) 6.73 10^3/uL 10^3 /uL (1.8-7.7) Lymph # (Auto) 1.1 10^3/uL 10^3/ uL (0.8-4.8) [place] # (Auto) 0.5 10^3/uL 10^3/ uL (0.2-0.9) Eos # (Auto) 0.3 10^3/uL 10^3/ uL (0.0-0.8) Baso # (Auto) 0.1 10^3/uL 10^3/ uL (0.0-0.1) Nucleated RBC % (a uto) 0 % % Nucleated RBCs # 0.0 /100WBC /100W BC Specimen Type Sample Site ABG pH ABG pCO2 ABG pO2 ABG HCO3 ABG O2 Saturation ABG Base Excess Joseph Test A-a O2 Gradient Hematocrit Hgb O2 Saturation Carboxyhemoglobin Methemoglobin Total Hemoglobin Ionized Calcium O2 Delivery Device FiO2 Driver Lifter Of Sanitation Truck ID Sodium 142 mmol/L mmol/L (136-145) Potassium 3.7 mmol/L mmol/L (3.5-5.1) Chloride 102 mmol/L mmol/L (98-107) Carbon Dioxide 32 mmol/L H mmol/ L (22-29) Anion Gap 11.7 (5-19) BUN 13 mg/dL mg/dL (8-23) Creatinine 0.7 mg/dL mg/dL (0.7-1.2) GFR Calculation 114.3 mL/min mL/m in (90-130) Glucose 107 mg/dL mg/dL (65-115) Calculated Osmolal ity 295 mOsm/kg mOsm/ kg (285-295) Lactic Acid 1.4 mmol/L mmol/L (0.5-2.2) Calcium 9.3 mg/dL mg/dL (8.5-10.5) Total Bilirubin 0.4 mg/dL mg/dL (0.15-1.2) AST 23 U/L U/L (0-40) ALT 30 U/L U/L (0-41) Alkaline Phosphata se 123 IU/L IU/L (40-130) Creatine Kinase 59 U/L U/L (39-308) Troponin T Baselin e Troponin T 120 [address] [place] Troponin T Total Protein 6.9 g/dL g/dL (6.6-8.7) Albumin 4.4 g/dL g/dL (3.5-5.2) Globulin 2.5 g/dL g/dL (1.3-4.6) Urine Color Urine Appearance Urine pH Ur Specific Gravit y Urine Protein Urine Glucose (UA) Urine Ketones Urine Blood Urine Nitrate Urine Bilirubin Urine Urobilinogen Ur Leukocyte Lacie ase Urine Opiates Scre en Ur Barbiturates Sc reen Ur Phencyclidine S crn Ur Amphetamines Sc reen U Benzodiazepines Scrn Urine Cocaine Scre en U Marijuana (THC) Screen Ethyl Alcohol < 10 mg/dL mg/dL (0-10) Serum Ketones 03/30/21 03/30/21 03/30/21 09:55 09:55 09:59 WBC RBC Hgb Hct MCV MCH MCHC RDW Plt Count MPV Neut % (Auto) Lymph % (Auto) [place] % (Auto) Eos % (Auto) Baso % (Auto) Neut # (Auto) Lymph # (Auto) [place] # (Auto) Eos # (Auto) Baso # (Auto) Nucleated RBC % (a uto) Nucleated RBCs # Specimen Type Sample Site ABG pH ABG pCO2 ABG pO2 ABG HCO3 ABG O2 Saturation ABG Base Excess Joseph Test A-a O2 Gradient Hematocrit Hgb O2 Saturation Carboxyhemoglobin Methemoglobin Total Hemoglobin Ionized Calcium O2 Delivery Device FiO2 Driver Lifter Of Sanitation Truck ID Sodium Potassium Chloride Carbon Dioxide Anion Gap BUN Creatinine GFR Calculation Glucose Calculated Osmolal ity Lactic Acid Calcium Total Bilirubin AST ALT Alkaline Phosphata se Creatine Kinase Troponin T Baselin e 7 ng/L ng/L (0-15) Troponin T [address] [place] Troponin T Total Protein Albumin Globulin Urine Color Yellow (Yellow) Urine Appearance Clear (CLEAR) Urine pH 7 (5-7) Ur Specific Gravit y 1.010 (1.005-1.030) Urine Protein Neg (Negative) Urine Glucose (UA) Norm (Normal) Urine Ketones Negative (Negative) Urine Blood Neg (Negative) Urine Nitrate Negative (Negative) Urine Bilirubin Neg (Negative) Urine Urobilinogen Norm mg/dL mg/dL (Negative) Ur Leukocyte Lacie ase Negative (Negative) Urine Opiates Scre en Ur Barbiturates Sc reen Ur Phencyclidine S crn Ur Amphetamines Sc reen U Benzodiazepines Scrn Urine Cocaine Scre en U Marijuana (THC) Screen Ethyl Alcohol Serum Ketones Negative (Negative) 03/30/21 03/30/21 03/30/21 09:59 10:12 13:23 WBC RBC Hgb Hct MCV MCH MCHC RDW Plt Count MPV Neut % (Auto) Lymph % (Auto) [place] % (Auto) Eos % (Auto) Baso % (Auto) Neut # (Auto) Lymph # (Auto) [place] # (Auto) Eos # (Auto) Baso # (Auto) Nucleated RBC % (a uto) Nucleated RBCs # Specimen Type Arterial Sample Site Radial, left ABG pH 7.43 (7.35-7.45) ABG pCO2 47.4 mmHg H mmHg (35-45) ABG pO2 77.8 mmHg L mmHg (80.0-100.0) ABG HCO3 31.2 mmol/L H mmo l/L (22-26) ABG O2 Saturation 96.1 ABG Base Excess 5.7 mmol/L H mmol /L (-2.0-2.0) Joseph Test Pos A-a O2 Gradient 1.9 mmHg L mmHg (5-10) Hematocrit 43.8 % % (42-52) Hgb O2 Saturation 94.3 % L % (95-100) Carboxyhemoglobin 1.1 %THgb %THgb (0.4-20.1) Methemoglobin 0.9 % % (0.4-1.5) Total Hemoglobin 14.3 g/dL g/dL (14-18) Ionized Calcium 1.2 mmol/L mmol/L (1.1-1.4) O2 Delivery Device Room air FiO2 21.0 % % Driver Lifter Of Sanitation Truck ID Cak Sodium 142.0 mmol/L mmol /L (131-143) Potassium 3.5 mmol/L mmol/L (3.5-5.0) Chloride Carbon Dioxide Anion Gap BUN Creatinine GFR Calculation Glucose 116.0 mg/dL H mg/ dL (70-115) Calculated Osmolal ity Lactic Acid Calcium Total Bilirubin AST ALT Alkaline Phosphata se Creatine Kinase Troponin T Baselin e Troponin T [address] [place] 6.83 ng/L ng/L (0-15) Delta Troponin T -0.17 ABS# L ABS# (0-10) Total Protein Albumin Globulin Urine Color Urine Appearance Urine pH Ur Specific Gravit y Urine Protein Urine Glucose (UA) Urine Ketones Urine Blood Urine Nitrate Urine Bilirubin Urine Urobilinogen Ur Leukocyte Lacie ase Urine Opiates Scre en Negative ng/mL ng /mL (Negative) Ur Barbiturates Sc reen Negative ng/mL ng /mL (Negative) Ur Phencyclidine S crn Negative ng/mL ng /mL (Negative) Ur Amphetamines Sc reen Negative ng/mL ng /mL (Negative) U Benzodiazepines Scrn Positive ng/mL H ng/mL (Negative) Urine Cocaine Scre en Negative ng/mL ng /mL (Negative) U Marijuana (THC) Screen Negative ng/mL ng /mL (Negative) Ethyl Alcohol Serum Ketones Discharge Plan Discharge Patient Disposition: Home Clinical Impression: Altered mental state, HTN (hypertension) Condition: Stable Prescriptions: No Action lisinopril 20 mg tablet 20 mg PO DAILY@07 RF: 0 alprazolam 0.25 mg tablet 0.25 mg PO TID@07,12,17 RF: 0 allopurinol 300 mg tablet 300 mg PO DAILY@07 RF: 0 metoprolol succinate 25 mg tablet extended release 24 hr 25 mg PO DAILY@07 RF: 0 rosuvastatin 20 mg tablet 20 mg PO BEDTIME RF: 0 chlorthalidone 25 mg tablet 12.5 mg PO DAILY@07 RF: 0 Xanax 1 mg Tablet 1 mg PO BEDTIME@20 RF: 0 artificial tears solution Drops 1 drp OPHTHALMIC (EYE) 6XD PRN (Reason: Dry Eyes) RF: 0 Lonox 2.5-0.025 mg Tablet 2 tab PO QID PRN (Reason: Loose Stool) RF: 0 Tylenol Ex Str Rapid Release 500 mg Tablet 500 - 1,000 mg PO .Q4-6H PRN (Reason: Pain) RF: 0 Pepto-Bismol 262 mg/15 mL Suspension 524 mg PO Q4H PRN (Reason: Diarrhea) RF: 0 omeprazole 20 mg Capsule,Delayed Release(Dr/Ec) 20 mg PO DAILY@07 RF: 0 Flovent HFA 110 mcg/actuation Hfa Aerosol Inhaler 2 puff INHALATION DAILY@07 RF: 0 escitalopram oxalate 20 mg Tablet 20 mg PO DAILY@07 RF: 0 Vitamin D3 25 mcg (1,000 unit) Tablet 25 mcg PO DAILY@07 RF: 0 Discharge Orders: Discharge ED (Routine); Ordered 03/30/21 Ordered By: Jorge Dangelo Referrals: Matthew Sanchez MD [Primary Care Provider] - Patient Instructions: Opioid Safety Activity Restrictions/Additional Instructions: Follow-up with your primary care doctor within the next week. Return to the emergency for further problems. Recommend minimizing the amount of alprazolam that you use. Coding Level of Care Code ED Commercial Mortgage Broker for Bekah Fwd Exam Comprehensive
--- NOTE | 2021-03-30 09:19 | CT_ITS ---
WS: [id number] CT HEAD TECHNIQUE: Noncontrast CT of the head obtained from the skullbase to the vertex. CLINICAL INFORMATION: AMS COMPARISON: None. DLP: 953.[address] scans at [facility] use at least one of these dose optimization techniques: automated e xposure control; mA and/or kV adjustment per patient size (includes targeted exams where dose is matc hed to clinical indication); or iterative reconstruction. FINDINGS: No evidence of intracranial hemorrhage or mass effect. Ventricular system and basal cisterns are stratton nt. Mild small vessel changes with mild parenchymal volume loss. No extra-axial fluid collections. No evidence of mass or mass effect. Intracranial vascular calcification. Paranasal sinuses and mastoid air cells are well aerated. .Normal visualized soft tissues. CT/CT head wo con* [id number] IMPRESSION: 1. No evidence of intracranial hemorrhage or mass effect. 2. Mild small vessel changes. Mild parenchymal volume loss. 3. No acute intracranial findings.
--- NOTE | 2021-03-30 09:32 | ECG_ITS ---
[facility] Test Date: 2021-03-30 Pat Name: Chris Guevara Department: Room: Gender: Male [employer]: : 1960 Requested By: Jorge Hawthorne Order Number: [id number] Opal MD: Alka Orourke M.D. Measurements Intervals [place] Rate: 73 P: 31 [place]: 194 QRS: 3 QRSD: 163 T: 82 QT: 413 QTc: 455 Interpretive Statements SINUS RHYTHM LEFT BUNDLE BRANCH BLOCK [120+ ms QRS DURATION, 80+ ms Q/S IN V1/V2, 85+ ms R IN I/aVL/V5/V6] Compared to ECG 02/20/2021 01:43:42 No significant changes Electronically Signed On 03-30-2021 20:35:01 CDT by Alka Orourke M.D. [id number]
--- NOTE | 2021-03-30 10:08 | PC.PHAR ---
pt is from [facility] [phone] jasmine from [facility] states the pt had all his am medications today
[2021-03-30 10:15] LABS: Add Urine Microscopic? NO; Charge for UA Resulting for Rev
[2021-03-30 10:15] LABS: Basophils # 0.1 10^3/uL (0.0-0.1); Basophils % 0.6 %; Eosinophils # 0.3 10^3/uL (0.0-0.8); Eosinophils % 3.2 %; Hematocrit 42.6 % (42.0-52.0); Hemoglobin 14.4 g/dL (11.7-16.6); Lymphocytes # 1.1 10^3/uL (0.8-4.8); Lymphocytes % 12.6 %; Mean Corpuscular HGB Conc 33.8 g/dL (30.0-36.0); Mean Corpuscular Volume 97.5 fl (80-94); Mean Platelet Volume 12.6 fL (7.4-10.4); Monocytes # 0.5 10^3/uL (0.2-0.9); Monocytes % 6.2 %; Neutrophils # 6.73 10^3/uL (1.8-7.7); Neutrophils % 77.1 %; Nucleated Red Blood Cells % 0 %; Platelet Count 175 10^3/cmm (130-400); Red Blood Count 4.37 10^6/uL (4.1-5.3); Red Cell Distribution Width 12.2 % (12.1-15.1); White Blood Count 8.7 10^3/uL (4.0-10.0)
[2021-03-30 10:23] LABS: ABG PCO2 47.4 mmHg (35-45); ABG PH Result 7.43 (7.35-7.45); Alveolar-Arterial Oxygen Gradi 1.9 mmHg (5-10); Arterial Blood Gas Hematocrit 43.8 % (42-52); Base Excess ABG 5.7 mmol/L (-2.0-2.0); Blood Gas Allen Test Pos; Blood Gas Operator Identificat CAK; Blood Gas Sample Site Radial, left; Blood Gas Sample Type Arterial; Carboxyhemoglobin 1.1 %THgb (0.4-20.1); HCO3 ABG 31.2 mmol/L (22-26); HGB O2 Sat 94.3 % (95-100); Ionized Calcium Level - ABG 1.2 mmol/L (1.1-1.4); Methemoglobin 0.9 % (0.4-1.5); Oxygen Device ROOM AIR; Oxygen Saturation ABG 96.1; PO2 ABG 77.8 mmHg (80.0-100.0); Potassium Level - ABG 3.5 mmol/L (3.5-5.0); Total Hemoglobin 14.3 g/dL (14-18)
[2021-03-30 10:28] LABS: Ketone (Acetest) Serum Negative (Negative)
[2021-03-30 10:34] LABS: Alanine Aminotransferase 30 U/L (0-41); Albumin Level 4.4 g/dL (3.5-5.2); Alkaline Phosphatase 123 IU/L (40-130); Anion Gap 11.7 (5-19); Aspartate Amino Transferase 23 U/L (0-40); Blood Urea Nitrogen 13 mg/dL (8-23); Calcium 9.3 mg/dL (8.5-10.5); Carbon Dioxide 32 mmol/L (22-29); Chloride 102 mmol/L (98-107); Creatine Phosphokinase 59 U/L (39-308); Globulin 2.5 g/dL (1.3-4.6); Glomerular Filtration Rate 114.3 mL/min (90-130); Glucose 107 mg/dL (65-115); Osmolality Calculated 295 mOsm/kg (285-295); Potassium 3.7 mmol/L (3.5-5.1); Sodium 142 mmol/L (136-145); Total Bilirubin 0.4 mg/dL (0.15-1.2); Total Protein 6.9 g/dL (6.6-8.7)
[2021-03-30 10:35] LABS: Alcohol Level < 10 mg/dL (0-10); Lactic Sepsis W/Reflex 1.4 mmol/L (0.5-2.2)
[2021-03-30 10:39] LABS: Troponin(5th) Baseline 7 ng/L (0-15)
[2021-03-30 10:44] LABS: Bilirubin Urine Neg (Negative); Blood Urine Neg (Negative); Glucose Urine UA Norm (Normal); Ketones Urine Negative (Negative); Leukocyte Esterase Urine Negative (Negative); Nitrate Urine Negative (Negative); Protein Urine Neg (Negative); Urine Appearance Clear (CLEAR); Urine Color Yellow (Yellow); Urobilinogen Urine Norm (Negative); pH Urine 7 (5-7)
[2021-03-30 11:03] LABS: Amphetamines Screen Urine Negative (Negative); Barbiturates Screen Urine Negative (Negative); Benzodiazepines Screen Urine Positive (Negative); Cocaine Screen Urine Negative (Negative); Opiate Screen Urine Negative (Negative); PCP Screen Urine Negative (Negative); THC Screen Urine Negative (Negative)
--- NOTE | 2021-03-30 11:32 | ECG_ITS ---
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 Measurements Intervals [place] Rate: 65 P: 37 [place]: 189 QRS: 1 QRSD: 163 T: 43 QT: 426 QTc: 445 Interpretive Statements SINUS RHYTHM LEFT BUNDLE BRANCH BLOCK [120+ ms QRS DURATION, 80+ ms Q/S IN V1/V2, 85+ ms R IN I/aVL/V5/V6] Compared to ECG 03/30/2021 09:46:43 No significant changes Electronically Signed On 03-30-2021 20:41:50 CDT by Alka Orourke M.D. [id number]
--- NOTE | 2021-03-30 11:55 | XR_ITS ---
WS: [id number] Portable AP upright chest, 03/30/2021 Clinical Data: dyspnea/cough Comparison: Portable chest, 02/19/2021. Findings: No nodules, masses or effusions are seen. The heart is normal. The pulmonary vascularity is not increased. No pneumonia or pneumothorax is seen. There is minimal atelectasis over the surface o f the left diaphragm with elevation of the diaphragm. 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 XR/XR chest 1V portable [id number] Impression: Negative for acute cardiopulmonary disease.
[2021-03-30 12:20] VITALS: BP 106/67; PULSE 84; RESP 18; O2SAT 94
[2021-03-30 13:00] VITALS: BP 110/78; PULSE 70; RESP 15; O2SAT 95
[2021-03-30 14:26] LABS: Troponin 5 2HR 6.83 ng/L (0-15)
[2021-03-30 14:27] LABS: Troponin 5 2HR Delta -0.17 ABS# (0-10)
[2021-03-30 16:28] VITALS: PULSE 74; RESP 14; O2SAT 96
== END 2021-03-30 16:29 | disposition home or self-care (01) ==
PROVIDERS: Emergency Provider Family Medicine; PCP Family Medicine
DX: R41.82 Altered mental status, unspecified (principal); I10 Essential (primary) hypertension
CPT/HCPCS: 36600; 70450; 71045; 80051; 80053; 80306; 80307; 81003; 82009; 82330; 82550; 82805; 83605; 84484; 85025; 87040; 93005; 99283

== ENCOUNTER → 2021-06-06 13:34 | Outpatient (BNVA) | payer MEDICARE, MEDICAID, SELFPAY | PROVIDERS: PCP Family Medicine; Referring Provider Family Medicine; Visit Provider Specialist | DX: R41.82 Altered mental status, unspecified (principal); F89 Unspecified disorder of psychological development; R20.0 Anesthesia of skin; R20.2 Paresthesia of skin; R56.9 Unspecified convulsions | CPT/HCPCS: 96116; 99204 ==

== ENCOUNTER → 2021-11-02 12:36 | Outpatient (BNVA) | payer MEDICARE, MEDICAID, SELFPAY | PROVIDERS: PCP Family Medicine; Visit Provider Internal Medicine | DX: I10 Essential (primary) hypertension (principal); I44.7 Left bundle-branch block, unspecified | CPT/HCPCS: 99213; 99214 ==

== ENCOUNTER 2021-12-26 23:49 | Emergency (ER) | payer MEDICARE, MEDICAID, SELFPAY ==
[2021-12-26 23:50] VITALS: BMI 23.4
[2021-12-26 23:53] VITALS: BP 141/79; PULSE 67; RESP 15; TEMP 37.1; O2SAT 96
--- NOTE | 2021-12-26 23:53 | ECG_ITS ---
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 Measurements Intervals [place] Rate: 65 P: 33 [place]: 204 QRS: -14 QRSD: 168 T: 51 QT: 428 QTc: 445 Interpretive Statements SINUS RHYTHM LEFT BUNDLE BRANCH BLOCK [120+ ms QRS DURATION, 80+ ms Q/S IN V1/V2, 85+ ms R IN I/aVL/V5/V6] Compared to ECG 03/30/2021 14:44:52 No significant changes Electronically Signed On 12-27-2021 22:28:02 CDT by Indy Sutton M.D. [id number]
--- NOTE | 2021-12-26 23:53 | CTR_ITS ---
PROCEDURE INFORMATION: Exam: CT Head Without Contrast Exam date and time: 12/27/2021 12:36 AM Age: 61 years old Clinical indication: Altered mental status/memory loss; Additional info: AMS TECHNIQUE: Imaging protocol: Computed tomography of the head without contrast. Radiation optimization: All CT scans at this facility use at least one of these dose optimization techniques: automated exposure control; mA and/or kV adjustment per patient size (includes targeted exams where dose is matched to clinical indication); or iterative reconstruction. COMPARISON: CT head wo con* [id number] 03/30/2021 10:04 AM RADIATION DOSE METRICS: Total DLP (mGy-cm): 1563.64 FINDINGS: Brain: Severe calcified intracranial atherosclerotic vessel disease. Cerebral ventricles: Stable asymmetric enlargement of the left lateral ventricle most consistent with developmental normal variant. Paranasal sinuses: Mild left ethmoid sinus disease. Mastoid air cells: Visualized mastoid air cells are well aerated. Bones/joints: Unremarkable. No acute fracture. Soft tissues: Unremarkable. Other findings: Examination is limited secondary to motion artifact. CT/CT head wo con* [id number] IMPRESSION: 1. Stable asymmetric enlargement of the left lateral ventricle most consistent with developmental normal variant. 2. Mild left ethmoid sinus disease.
--- NOTE | 2021-12-26 23:57 | W.ED.AMS ---
HPI - Altered Mental Status General: Chief Complaint: Altered Mental Status Stated Complaint: AMS Time Seen by Provider: 12/26/21 23:51 Source: patient and EMS Mode of arrival: EMS Limitations: no limitations History of Present Illness: 61-year-old male who is here from [place] late middle-aged. Per EMS he had stood up and while standing up had a brief period where he was not conversing with the staff were concerned that he was altered. This lasted a few seconds and since has been acting completely normal patient here is answering all my questions appropriately he has no focal deficits patient was ambulatory as well. Denies headache or pain anywhere. He denies headache. Associated symptoms: Deny depression Review of Systems Const: Denies: fever(s), chills, body aches or change in appetite Eyes: Denies: blurry vision or eye discomfort ENMT: Denies: throat pain or dental pain Card: Denies: chest pain Resp: Denies: dyspnea GI: Denies: abdominal pain, nausea, vomiting or diarrhea : Denies: dysuria Musc: Denies: neck pain or back pain Skin/Breast: Denies: rash Neuro: Denies: headache(s) Psych: Denies: depression Gray/Lymph: Denies: easy bruising All/Imm: Denies: urticaria PFSH ED PFSH: Medical History HTN (hypertension) Surgical History History of cholecystectomy Social History Smoking and tobacco status: never smoked Physical Exam Const: COMMON NORMALS: no acute distress and patient oriented x3 HENMT: COMMON NORMALS: normocephalic and atraumatic HEAD & SCALP: normocephalic and atraumatic Eye: COMMON NORMALS: Equal, round and reactive pupils present and EOMs intact bilaterally PUPIL: Yes Equal, round and reactive pupils present Neck/C-Spine: COMMON NORMALS: full ROM and supple Chest: COMMONS NORMALS: normal inspection of the chest and normal palpation of entire chest wall Resp: COMMON NORMALS: normal respiratory effort and clear to auscultation bilaterally EFFORT & INSPECTION: Yes able to speak in complete sentences AUSCULTATION: clear to auscultation bilaterally Cardio: COMMON NORMALS: regular rate and regular rhythm RATE: regular rate RHYTHM: regular rhythm GI: COMMON NORMALS: Normal to inspection, nondistended, normoactive bowel sounds present, Soft to palpation and non-tender PALPATION: Yes Soft to palpation Extremity: COMMON NORMALS: normal to inspection Neuro: COMMON NORMALS: patient oriented x3 and no focal motor deficits CRANIAL NERVES: Yes CN normal except as noted GAIT: Yes Normal gait present MOTOR EXAM: 5/5 motor strength present throughout Psych: COMMON NORMALS: mental status grossly normal Skin: COMMON NORMALS: no rashes or lesions noted GENERAL SKIN EXAM: no rashes or lesions noted Course Vital Signs: Vital signs: Vital Signs Temperature 98.8 F 12/26/21 23:53 Pulse Rate 60 12/27/21 01:30 Respiratory Rate 13 12/27/21 01:30 Blood Pressure 141/79 12/27/21 01:30 Pulse Oximetry 94 12/27/21 01:30 MDM - Altered Mental Status Medical Decision Making Patient presents here with altered mental status patient's been well-appearing here. He had was brief no signs of stroke head CT here and blood works normal he is at his baseline stable for discharge return if worsening. Lab Data : 12/27/21 00:00 12/27/21 00:[address] 12/26/21 23:53 IMPRESSION: 1. Stable asymmetric enlargement of the left lateral ventricle most consistent with developmental normal variant. 2. Mild left ethmoid sinus disease. ADDENDUM: 12/27/21 0223 Impression: 3. No acute intracranial findings. Chest X-Ray 12/27/21 00:24 IMPRESSION: No acute findings. Laboratory Results WBC 8.6 10^3/uL (4.0-10.0) 12/27/21 00:00 RBC 4.33 10^6/uL (4.1-5.3) 12/27/21 00:00 Hgb 14.3 g/dL (11.7-16.6) 12/27/21 00:00 Hct 40.9 % (42.0-52.0) L 12/27/21 00:00 MCV 94.5 fl (80-94) H 12/27/21 00:00 MCH 33.0 pg (28.0-34.0) 12/27/21 00:00 MCHC 35.0 g/dL (30.0-36.0) 12/27/21 00:00 RDW 12.2 % (12.1-15.1) 12/27/21 00:00 Plt Count 172 10^3/cmm (130-400) 12/27/21 00:00 MPV 12.6 fL (7.4-10.4) H 12/27/21 00:00 Neut % (Auto) 69.0 % 12/27/21 00:00 Lymph % (Auto) 18.8 % 12/27/21 00:00 [place] % (Auto) 6.7 % 12/27/21 00:00 Eos % (Auto) 4.6 % 12/27/21 00:00 Baso % (Auto) 0.6 % 12/27/21 00:00 Neut # (Auto) 5.96 10^3/uL (1.8-7.7) 12/27/21 00:00 Lymph # (Auto) 1.6 10^3/uL (0.8-4.8) 12/27/21 00:00 [place] # (Auto) 0.6 10^3/uL (0.2-0.9) 12/27/21 00:00 Eos # (Auto) 0.4 10^3/uL (0.0-0.8) 12/27/21 00:00 Baso # (Auto) 0.1 10^3/uL (0.0-0.1) 12/27/21 00:00 Nucleated RBC % (auto) 0 % 12/27/21 00:00 Nucleated RBCs # 0.0 /100WBC 12/27/21 00:00 Sodium 132 mmol/L (136-145) L 12/27/21 00:00 Potassium 3.5 mmol/L (3.5-5.1) 12/27/21 00:00 Chloride 97 mmol/L (98-107) L 12/27/21 00:00 Carbon Dioxide 29 mmol/L (22-29) 12/27/21 00:00 Anion Gap 9.5 (5-19) 12/27/21 00:00 BUN 20 mg/dL (8-23) 12/27/21 00:00 Creatinine 0.9 mg/dL (0.7-1.2) 12/27/21 00:00 GFR Calculation 85.5 mL/min (90-130) L 12/27/21 00:00 Glucose 97 mg/dL (65-115) 12/27/21 00:00 Calculated Osmolality 277 mOsm/kg (285-295) L 12/27/21 00:00 Calcium 8.7 mg/dL (8.5-10.5) 12/27/21 00:00 Total Bilirubin 0.3 mg/dL (0.15-1.2) 12/27/21 00:00 AST 20 U/L (0-40) 12/27/21 00:00 ALT 31 U/L (0-41) 12/27/21 00:00 Alkaline Phosphatase 160 IU/L (40-130) H 12/27/21 00:00 Total Protein 7.1 g/dL (6.6-8.7) 12/27/21 00:00 Albumin 4.1 g/dL (3.5-5.2) 12/27/21 00:00 Globulin 3.0 g/dL (1.3-4.6) 12/27/21 00:00 EKG Data EKG 1: I personally reviewed and interpreted this EKG as follows: EKG interpretation date: 12/26/21 EKG interpretation time: 23:59 Interpretation: nsr hr [address] or t wave abnormalities qrs 168 qtc 439 Discharge Plan Discharge Patient Disposition: Home Clinical Impression: Altered mental status Condition: Stable Prescriptions: No Action lisinopril 20 mg tablet 20 mg PO DAILY@07 0RF alprazolam 0.25 mg tablet 0.25 mg PO TID@07,12,17 0RF allopurinol 300 mg tablet 300 mg PO DAILY@07 0RF metoprolol succinate 25 mg tablet extended release 24 hr 25 mg PO DAILY@07 0RF rosuvastatin 20 mg tablet 20 mg PO BEDTIME 0RF chlorthalidone 25 mg tablet 12.5 mg PO DAILY@07 0RF Xanax 1 mg Tablet 1 mg PO BEDTIME@20 0RF artificial tears solution Drops 1 drp OPHTHALMIC (EYE) 6XD PRN (Reason: Dry Eyes) 0RF Lonox 2.5-0.025 mg Tablet 2 tab PO QID PRN (Reason: Loose Stool) 0RF Tylenol Ex Str Rapid Release 500 mg Tablet 500 - 1,000 mg PO .Q4-6H PRN (Reason: Pain) 0RF Pepto-Bismol 262 mg/15 mL Suspension 524 mg PO Q4H PRN (Reason: Diarrhea) 0RF omeprazole 20 mg Capsule,Delayed Release(Dr/Ec) 20 mg PO DAILY@07 0RF Flovent HFA 110 mcg/actuation Hfa Aerosol Inhaler 2 puff INHALATION DAILY@07 0RF escitalopram oxalate 20 mg Tablet 20 mg PO DAILY@07 0RF Vitamin D3 25 mcg (1,000 unit) Tablet 25 mcg PO DAILY@07 0RF Discharge Orders: Discharge ED (Routine); Ordered 12/27/21 Ordered By: Stephanie Weinstein Referrals: Matthew Sanchez MD [Primary Care Provider] - 1-3 days Discharge Diet: Advance as tolerated Discharge Activity: Resume usual activity Patient Instructions: Altered Mental Status (ED) Coding Level of Care Code ED Forming Department Supervisor for Bekah Fwd Exam Comprehensive
[2021-12-27 00:04] LABS: Basophils # 0.1 10^3/uL (0.0-0.1); Basophils % 0.6 %; Eosinophils # 0.4 10^3/uL (0.0-0.8); Eosinophils % 4.6 %; Hematocrit 40.9 % (42.0-52.0); Hemoglobin 14.3 g/dL (11.7-16.6); Lymphocytes # 1.6 10^3/uL (0.8-4.8); Lymphocytes % 18.8 %; Mean Corpuscular Volume 94.5 fl (80-94); Mean Platelet Volume 12.6 fL (7.4-10.4); Monocytes # 0.6 10^3/uL (0.2-0.9); Monocytes % 6.7 %; Neutrophils # 5.96 10^3/uL (1.8-7.7); Nucleated Red Blood Cells % 0 %; Platelet Count 172 10^3/cmm (130-400); Red Blood Count 4.33 10^6/uL (4.1-5.3); Red Cell Distribution Width 12.2 % (12.1-15.1); White Blood Count 8.6 10^3/uL (4.0-10.0)
[2021-12-27 00:24] LABS: Alanine Aminotransferase 31 U/L (0-41); Albumin Level 4.1 g/dL (3.5-5.2); Alkaline Phosphatase 160 IU/L (40-130); Aspartate Amino Transferase 20 U/L (0-40); Blood Urea Nitrogen 20 mg/dL (8-23); Calcium 8.7 mg/dL (8.5-10.5); Carbon Dioxide 29 mmol/L (22-29); Chloride 97 mmol/L (98-107); Glomerular Filtration Rate 85.5 mL/min (90-130); Glucose 97 mg/dL (65-115); Osmolality Calculated 277 mOsm/kg (285-295); Sodium 132 mmol/L (136-145); Total Bilirubin 0.3 mg/dL (0.15-1.2); Total Protein 7.1 g/dL (6.6-8.7)
--- NOTE | 2021-12-27 00:24 | XRR_ITS ---
PROCEDURE INFORMATION: Exam: XR Chest Exam date and time: 12/27/2021 12:25 AM Age: 61 years old Clinical indication: Other: Syncope; Additional info: AMS TECHNIQUE: Imaging protocol: Radiologic exam of the chest. Views: 1 view. COMPARISON: CR XR chest 1V portable [id number] 03/30/2021 12:02 PM FINDINGS: Lungs: Unremarkable. No consolidation. Pleural spaces: Unremarkable. No pleural effusion. No pneumothorax. Heart/Mediastinum: Unremarkable. No cardiomegaly. Diaphragm: Stable elevation of the left hemidiaphragm consistent with eventration. 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 XR/XR chest 1V portable [id number] IMPRESSION: No acute findings.
[2021-12-27 00:29] LABS: Anion Gap 9.5 (5-19); Potassium 3.5 mmol/L (3.5-5.1)
[2021-12-27 01:30] VITALS: BP 141/79; PULSE 60; RESP 13; O2SAT 94
--- NOTE | 2021-12-27 01:32 | PC.NURSE ---
Pt. resting in bed and states that he has no needs or complaints at this time.
== END 2021-12-27 03:03 | disposition home or self-care (01) ==
PROVIDERS: Emergency Provider Emergency Medicine; PCP Family Medicine
DX: R41.82 Altered mental status, unspecified (principal); I10 Essential (primary) hypertension
CPT/HCPCS: 70450; 71045; 80053; 85025; 93005; 99283

== ENCOUNTER 2022-01-23 14:27 | Outpatient (CLI) | payer MEDICARE, MEDICAID, SELFPAY ==
--- NOTE | 2022-01-23 15:15 | USCV_ITS ---
Ismael Chris Age: 61 Gender: M : 1960 Exam Date: 01/23/2022 14:50 Ordering Phys: Duran Calhoun M.D ([email or web address]) Technologist: Mac Izquierdo Exam Location: [facility] [place] Indication: chest pain BP: 134 / 78 HR: 57 Rhythm: Sinus Technical Quality: Adequate MEASUREMENTS (Male / Female) Normal Values 2D ECHO LV Diastolic Diameter PLAX 3.2 cm 4.2 - 5.9 / 3.9 - 5.3 cm LV Systolic Diameter PLAX 1.8 cm IVS Diastolic Thickness 1.0 cm 0.6 - 1.0 / 0.6 - 0.9 cm IVS Systolic Thickness 1.0 cm LVPW Diastolic Thickness 1.0 cm 0.6 - 1.0 / 0.6 - 0.9 cm LVPW Systolic Thickness 1.3 cm LVOT Diameter 2.2 cm LV Ejection Fraction 2D Teich 76.6 % LV Ejection Fraction MOD 2C 57.6 % LV Ejection Fraction 2C AL 57.8 % LA Diameter 4.4 cm Aorta at Sinotubular Diameter 2.5 cm M-MODE Aortic Annulus Diameter 3.6 cm LA Ao Ratio MM 1.3 MV E Point Septal Separation 1.0 cm DOPPLER AV Peak Velocity 127.0 cm/s LVOT Peak Velocity 84.0 cm/s AV Area Cont Eq vti 2.4 cm squared AV Area Cont Eq pk 2.4 cm squared MV Area PHT 5.0 cm squared Mitral E to A Ratio 0.9 MV E' Velocity 41.0 cm/s Mitral E to MV E' Ratio 11.4 Mitral E to LV E' Lateral Ratio 10.6 Mitral E to LV E' Septal Ratio 12.6 TR Peak Velocity 146.7 cm/s TR Peak Gradient 8.6 mmHg TV Peak E Velocity 74.0 cm/s Right Atrial Pressure 3.0 mmHg Pulmonary Artery Systolic Pressu 11.6 mmHg PV Peak Velocity 119.0 cm/s FINDINGS Left Ventricle Normal left ventricular size. LV systolic function is mildly reduced with EF 50%. Mild global hypokinesis is seen. Septal motion is consistent with conduction abnormality. Grade 1 diastolic dysfunction Right Ventricle The right ventricle is normal in size and function. Right Atrium The right atrium is normal in size. Left Atrium The left atrium is normal in size. Mitral Valve Grossly normal without significant stenosis or prolapse. There is no mitral regurgitation. Aortic Valve Grossly normal Tricuspid Valve Structurally normal tricuspid valve without significant stenosis or regurgitation. Insufficient TR jet to calculate RVSP Pulmonic Valve Not well-visualized Pericardium Normal pericardium without effusion. Aorta Normal ascending aorta dimension. IVC CONCLUSIONS Technically limited quality echocardiogram because of poor ultrasonic windows. LV systolic function is mildly reduced with EF 50%. Mild global hypokinesis is seen. Septal motion is consistent with conduction abnormality Grade 1 diastolic dysfunction. No significant valvular heart disease is seen however valvular structures are not very well visualized. Compared to prior echocardiogram from 12/25/2020, no significant changes are seen Duran Calhoun MD (Electronically Signed) Final Date: 05 February 2022 11:13 S
== END 2022-01-23 14:28 | disposition home or self-care (01) ==
PROVIDERS: PCP Family Medicine; Visit Provider Internal Medicine
DX: R07.9 Chest pain, unspecified (principal)
CPT/HCPCS: 93306

== ENCOUNTER → 2022-01-30 10:45 | Outpatient (BNVA) | payer MEDICARE, MEDICAID, SELFPAY | PROVIDERS: PCP Family Medicine; Visit Provider Specialist | DX: R41.82 Altered mental status, unspecified (principal); F89 Unspecified disorder of psychological development; L25.9 Unspecified contact dermatitis, unspecified cause | CPT/HCPCS: 99214 ==

== ENCOUNTER → 2022-03-01 07:41 | Outpatient (BNVA) | payer MEDICARE, MEDICAID, SELFPAY | PROVIDERS: PCP Family Medicine; Referring Provider Specialist; Visit Provider Specialist | DX: R41.82 Altered mental status, unspecified (principal) | CPT/HCPCS: 95812; 95816 ==

== ENCOUNTER 2022-03-14 09:02 | Emergency (ER) | payer MEDICARE, MEDICAID, SELFPAY ==
[2022-03-14 09:12] VITALS: BP 113/56; PULSE 77; RESP 16; TEMP 36.6; O2SAT 94
[2022-03-14 09:15] VITALS: BP 114/62; PULSE 70; RESP 16; TEMP 36.6; O2SAT 95
--- NOTE | 2022-03-14 09:16 | XR_ITS ---
WS: [id number] Portable AP upright chest, 03/14/2022 Clinical Data: syncopal episode Comparison: Portable chest, 12/27/2021. Findings: No nodules, masses or effusions are seen. The heart is normal. There is minimal elevation o f the left diaphragm with patchy opacity over the surface unchanged. The pulmonary vascularity is not increased. No pneumonia or pneumothorax is seen. Monitor leads are on the chest wall. XR/XR chest 1V portable [id number] Impression: Negative chest.
--- NOTE | 2022-03-14 09:17 | CT_ITS ---
WS: [id number] CT HEAD TECHNIQUE: Noncontrast CT of the head obtained from the skullbase to the vertex. CLINICAL INFORMATION: Syncopal episode COMPARISON: CT December 27, 2021 DLP: 1081.[address] scans at [facility] [place] use at least one of these dose optimization techniques: automated e xposure control; mA and/or kV adjustment per patient size (includes targeted exams where dose is matc hed to clinical indication); or iterative reconstruction. FINDINGS: No evidence of intracranial hemorrhage or mass effect. Ventricular system and basal cisterns are stratton nt. Mild small vessel changes with mild parenchymal volume loss. No extra-axial fluid collections. No evidence of mass or mass effect Opacification of the mastoid tips bilaterally. Mild mucosal thickening ethmoid air cells with frothy secretions LEFT posterior ethmoid air cells. Intracranial vascular calcification. Stable asymmetric e nlargement of the LEFT lateral ventricle likely developmental and unchanged. Cavernous carotid calcif ication. CT/CT head wo con* [id number] IMPRESSION: 1. No evidence of intracranial hemorrhage or mass effect. 2. Mild small vessel changes with mild parenchymal volume loss. 3. No acute intracranial findings and no significant changes since December 27.
[2022-03-14 09:26] LABS: Basophils % 0.4 %; Eosinophils # 0.2 10^3/uL (0.0-0.8); Eosinophils % 2.6 %; Hematocrit 47.4 % (42.0-52.0); Hemoglobin 15.7 g/dL (11.7-16.6); Lymphocytes % 10.7 %; Mean Corpuscular HGB Conc 33.1 g/dL (30.0-36.0); Mean Corpuscular Hemoglobin 32.8 pg (28.0-34.0); Mean Corpuscular Volume 99.2 fl (80-94); Mean Platelet Volume 12.6 fL (7.4-10.4); Monocytes # 0.5 10^3/uL (0.2-0.9); Monocytes % 5.6 %; Neutrophils # 7.47 10^3/uL (1.8-7.7); Neutrophils % 80.4 %; Nucleated Red Blood Cells % 0 %; Platelet Count 193 10^3/cmm (130-400); Red Blood Count 4.78 10^6/uL (4.1-5.3); Red Cell Distribution Width 12.5 % (12.1-15.1); White Blood Count 9.3 10^3/uL (4.0-10.0)
--- NOTE | 2022-03-14 09:30 | ED_ITS ---
HPI - Syncope General: Chief Complaint: Syncope Stated Complaint: syncope x 2 Time Seen by Provider: 03/14/22 09:16 History of Present Illness: Patient is a 62-year-old male comes to the ED with right-sided numbness and weakness. Patient resides at [facility]. Says this morning at 6 AM when he woke up he had a right sided weakness and numbness. He said he could feel it in right lower leg, right arm and right side of chest, right lower jaw and right side of tongue. He has never had symptoms like this before. He also reports having 2 episodes where he was zoning out but denies any loss of consciousness. The nurse on staff said patient appeared to have eyes open but was not responding for a minute or 2. Here in the ED patient says he feels back to normal and has no more weakness on the right side or any numbness or tingling on right side. Denies any seizure-like activity. Denies any chest pain, shortness of breath, abdominal pain, nausea/vomiting, fever, chills, bladder or bowel symptoms. Associated symptoms: Deny abdominal pain, chest pain, fever(s), headache(s) or nausea Review of Systems Const: Denies: fever(s), chills or fatigue Eyes: Denies: change in vision or eye discomfort ENMT: Denies: throat pain, odynophagia, nasal discharge or nasal congestion Card: Reports: pre-syncope; Denies: chest pain, palpitations, edema, swelling of feet/ankles, dyspnea on exertion or orthopnea Resp: Denies: dyspnea, productive cough or non-productive cough GI: Denies: abdominal pain, nausea, vomiting, diarrhea, constipation or hematochezia : Denies: flank pain, difficulty urinating, dysuria or hematuria Musc: Denies: neck pain, back pain or extremity swelling Skin/Breast: Denies: rash or new lesions Neuro: Reports: numbness in extremities (Right side), weakness in extremities (Right side) and sensory changes (Right side); Denies: headache(s) [facility] ED PFSH: Medical History HTN (hypertension) Surgical History History of cholecystectomy Social History Smoking and tobacco status: never smoked Physical Exam Const: COMMON NORMALS: no acute distress, patient oriented x3, healthy appearing and alert GENERAL APPEARANCE: cooperative and comfortable HENMT: COMMON NORMALS: normocephalic HEAD & SCALP: normocephalic MOUTH: Normal oral and palatal mucosa present THROAT: posterior oropharynx normal and uvula midline Neck/C-Spine: COMMON NORMALS: supple GENERAL: Yes normal visual inspection Resp: COMMON NORMALS: normal respiratory effort, No retractions, No use of accessory muscles and clear to auscultation bilaterally AUSCULTATION: clear to auscultation bilaterally Cardio: COMMON NORMALS: regular rate, regular rhythm, S1 normal heart sound present, S2 normal heart sound present, No gallops present (Cardio), No clicks present (Cardio), No murmurs present (Cardio) and Peripheral pulses 2+ throughout RATE: regular rate RHYTHM: regular rhythm HEART SOUNDS: S1 normal heart sound present and S2 normal heart sound present PERIPHERAL PULSES: Peripheral pulses 2+ throughout GI: COMMON NORMALS: Normal to inspection, nondistended, normoactive bowel sounds present, Soft to palpation, non-tender and no masses PALPATION: Yes Soft to palpation : COMMON NORMALS: Yes no CVA tenderness BLADDER/KIDNEY EXAM: Yes no CVA tenderness Back/Pelvis: COMMON NORMALS: no CVA tenderness Neuro: COMMON NORMALS: patient oriented x3, CN's II-XII intact bilaterally, moves all extremities, no focal motor deficits and no sensory deficits noted SENSORIUM/ORIENTATION: Yes alert COORDINATION/BALANCE: [id number] test normal SPEECH: speech normal GAIT: Yes Normal gait present MOTOR EXAM: 5/5 motor strength present throughout and Pronator motor function not present COORDINATION: [id number] test normal OTHER: NIHSS?0 Skin: GENERAL SKIN EXAM: dry skin Course ED course: NIHSS?0 Vital Signs: Vital signs: Vital Signs Temperature 98 F 03/14/22 12:45 Pulse Rate 68 03/14/22 12:45 Respiratory Rate 16 03/14/22 12:45 Blood Pressure 110/62 03/14/22 12:45 Pulse Oximetry 95 03/14/22 12:45 Oxygen Delivery Me thod 03/14/22 10:45 MDM - Syncope Medical Decision Making Patient is a 62-year-old male comes to the ED with right-sided numbness and weakness. Patient resides at [facility]. Says this morning at 6 AM when he woke up he had a right sided weakness and numbness. Symptoms resolved upon arrival here in the ED. Vitals are stable. Exam is benign and neuro exam shows no deficits. NIHSS?0. CBC and CMP were unremarkable. Troponins negative. EKG shows sinus rhythm with no ST segment elevation or depression seen. Chest x-ray shows no acute findings. Head CT shows no acute intracranial findings. Patient continued to feel normal here in the ED and has no symptoms of right-sided numbness or weakness. He was stable for discharge home and told to follow-up with his PCP in the next 3 days for reevaluation. Strict return ED precautions given. Patient understood and agreed with plan. Lab Data I reviewed the patient's lab results. : 03/14/22 08:45 03/14/22 08:45 Radiology Impressions Chest X-Ray 03/14/22 09:16 Impression: Negative chest. Head CT 03/14/22 09:17 IMPRESSION: 1. No evidence of intracranial hemorrhage or mass effect. 2. Mild small vessel changes with mild parenchymal volume loss. 3. No acute intracranial findings and no significant changes since December 27, 2021. Laboratory Results WBC 9.3 10^3/uL (4.0-10.0) 03/14/22 08:45 RBC 4.78 10^6/uL (4.1-5.3) 03/14/22 08:45 Hgb 15.7 g/dL (11.7-16.6) 03/14/22 08:45 Hct 47.4 % (42.0-52.0) 03/14/22 08:45 MCV 99.2 fl (80-94) H 03/14/22 08:45 MCH 32.8 pg (28.0-34.0) 03/14/22 08:45 MCHC 33.1 g/dL (30.0-36.0) 03/14/22 08:45 RDW 12.5 % (12.1-15.1) 03/14/22 08:45 Plt Count 193 10^3/cmm (130-400) 03/14/22 08:45 MPV 12.6 fL (7.4-10.4) H 03/14/22 08:45 Neut % (Auto) 80.4 % 03/14/22 08:45 Lymph % (Auto) 10.7 % 03/14/22 08:45 [place] % (Auto) 5.6 % 03/14/22 08:45 Eos % (Auto) 2.6 % 03/14/22 08:45 Baso % (Auto) 0.4 % 03/14/22 08:45 Neut # (Auto) 7.47 10^3/uL (1.8-7.7) 03/14/22 08:45 Lymph # (Auto) 1.0 10^3/uL (0.8-4.8) 03/14/22 08:45 [place] # (Auto) 0.5 10^3/uL (0.2-0.9) 03/14/22 08:45 Eos # (Auto) 0.2 10^3/uL (0.0-0.8) 03/14/22 08:45 Baso # (Auto) 0.0 10^3/uL (0.0-0.1) 03/14/22 08:45 Nucleated RBC % (auto) 0 % 03/14/22 08:45 Nucleated RBCs # 0.0 /100WBC 03/14/22 08:45 Sodium 140 mmol/L (136-145) 03/14/22 08:45 Potassium 3.7 mmol/L (3.5-5.1) 03/14/22 08:45 Chloride 97 mmol/L (98-107) L 03/14/22 08:45 Carbon Dioxide 31 mmol/L (22-29) H 03/14/22 08:45 Anion Gap 15.7 (5-19) 03/14/22 08:45 BUN 14 mg/dL (8-23) 03/14/22 08:45 Creatinine 0.9 mg/dL (0.7-1.2) 03/14/22 08:45 GFR Calculation 85.2 mL/min (90-130) L 03/14/22 08:45 Glucose 126 mg/dL (65-115) H 03/14/22 08:45 Calculated Osmolality 292 mOsm/kg (285-295) 03/14/22 08:45 Calcium 9.4 mg/dL (8.5-10.5) 03/14/22 08:45 Total Bilirubin 0.5 mg/dL (0.15-1.2) 03/14/22 08:45 AST 28 U/L (0-40) 03/14/22 08:45 ALT 49 U/L (0-41) H 03/14/22 08:45 Alkaline Phosphatase 163 U/L (40-130) H 03/14/22 08:45 Troponin T Baseline 9 ng/L (0-15) 03/14/22 08:45 Troponin T 120 Minute 9.07 ng/L (0-15) 03/14/22 10:54 Delta Troponin T 0.07 ABS# (0-10) 03/14/22 10:54 NT-Pro-B Natriuret Pep 13 pg/mL (0-125) 03/14/22 08:45 Total Protein 7.6 g/dL (6.6-8.7) 03/14/22 08:45 Albumin 4.7 g/dL (3.5-5.2) 03/14/22 08:45 Globulin 2.9 g/dL (1.3-4.6) 03/14/22 08:45 EKG Data EKG 1: EKG interpretation date: 03/14/22 Interpretation: Sinus rhythm, 67 bpm, no ST segment elevation or depression seen. EKG 2: EKG interpretation date: 03/14/22 Interpretation: Sinus rhythm, 64 beats minute, no ST segment elevation or depression seen. No acute change from previous EKG. Discharge Plan Discharge Patient Disposition: Home Clinical Impression: Right sided numbness Condition: Stable Prescriptions: No Action lisinopril 20 mg tablet 20 mg PO DAILY@07 alprazolam 0.25 mg tablet 0.25 mg PO TID@07,12,17 allopurinol 300 mg tablet 300 mg PO DAILY@07 metoprolol succinate 25 mg tablet extended release 24 hr 25 mg PO DAILY@07 rosuvastatin 20 mg tablet 20 mg PO BEDTIME chlorthalidone 25 mg tablet 12.5 mg PO DAILY@07 methylprednisolone [Medrol (Rory)] 4 mg tablets,dose pack 4 mg PO DAILY Qty: 21 0RF Xanax 1 mg Tablet 1 mg PO BEDTIME@20 artificial tears solution Drops 1 drp OPHTHALMIC (EYE) 6XD PRN (Reason: Dry Eyes) Lonox 2.5-0.025 mg Tablet 2 tab PO QID PRN (Reason: Loose Stool) Tylenol Ex Str Rapid Release 500 mg Tablet 500 - 1,000 mg PO .Q4-6H PRN (Reason: Pain) Pepto-Bismol 262 mg/15 mL Suspension 524 mg PO Q4H PRN (Reason: Diarrhea) omeprazole 20 mg Capsule,Delayed Release(Dr/Ec) 20 mg PO DAILY@07 Flovent HFA 110 mcg/actuation Hfa Aerosol Inhaler 2 puff INHALATION DAILY@07 escitalopram oxalate 20 mg Tablet 20 mg PO DAILY@07 Vitamin D3 25 mcg (1,000 unit) Tablet 25 mcg PO DAILY@07 Discharge Orders: Discharge ED (Routine); Ordered 03/14/22 Ordered By: Mykel Fuentes Referrals: Matthew Sanchez MD [Primary Care Provider] - Discharge Diet: Regular Discharge Activity: Increase activity as tolerated Activity Restrictions/Additional Instructions: Follow-up with medical provider as directed in the next 3 to 5 days for reevaluation. Continue taking all home medications as previously prescribed. Return to the ER or your medical provider if condition worsens. Please read and understand discharge instructions. Thank you for choosing [facility] for your healthcare needs today. Please realize this is an emergency room and that we are providing you with a medical screening exam and this may not be complete and all inclusive of all the testing and or work up that you may need to determine your ailment or severity of your illness. It is very important that you follow up as instructed or that you return to the Emergency Department should you have concerns or if your condition changes or worsens in any way. Stand Alone Forms: Work/School Release Coding Level of Care Code ED Food Service Associate for [employer] Fwd Exam Comprehensive
[2022-03-14 09:55] LABS: Alanine Aminotransferase 49 U/L (0-41); Albumin Level 4.7 g/dL (3.5-5.2); Alkaline Phosphatase 163 U/L (40-130); Anion Gap 15.7 (5-19); Aspartate Amino Transferase 28 U/L (0-40); Blood Urea Nitrogen 14 mg/dL (8-23); Calcium 9.4 mg/dL (8.5-10.5); Carbon Dioxide 31 mmol/L (22-29); Chloride 97 mmol/L (98-107); Globulin 2.9 g/dL (1.3-4.6); Glomerular Filtration Rate 85.2 mL/min (90-130); Glucose 126 mg/dL (65-115); NT Pro B Type Natriuretic Pept 13 pg/mL (0-125); Osmolality Calculated 292 mOsm/kg (285-295); Potassium 3.7 mmol/L (3.5-5.1); Sodium 140 mmol/L (136-145); Total Bilirubin 0.5 mg/dL (0.15-1.2); Total Protein 7.6 g/dL (6.6-8.7)
[2022-03-14 10:03] LABS: Troponin(5th) Baseline 9 ng/L (0-15)
--- NOTE | 2022-03-14 10:14 | ECG_ITS ---
[facility] Test Date: 2022-03-14 Pat Name: Chris Guevara Department: Room: Gender: Male Data Control Assistant: : 1960 Requested By: Mykel Fuentes Order Number: [id number] Joseph MD: Duran Calhoun M.D. Measurements Intervals [place] Rate: 67 P: 24 AL: 184 QRS: -36 QRSD: 172 T: 94 QT: 431 QTc: 456 Interpretive Statements SINUS RHYTHM LEFT AXIS DEVIATION [QRS AXIS < -30] LEFT BUNDLE BRANCH BLOCK [120+ ms QRS DURATION, 80+ ms Q/S IN V1/V2, 85+ ms R IN I/aVL/V5/V6] Compared to ECG 12/26/2021 23:59:35 Left-axis deviation now present Electronically Signed On 03-14-2022 19:45:57 CDT by Duran Calhoun M.D. [id number]
[2022-03-14 10:45] VITALS: BP 108/67; PULSE 67; RESP 16; TEMP 36.6; O2SAT 91
--- NOTE | 2022-03-14 11:14 | ECG_ITS ---
[facility] Test Date: 2022-03-14 Pat Name: Chris Guevara Department: Room: Gender: Male Sas Developer Analyst: : 1960 Requested By: Mykel Fuentes Order Number: [id number] Joseph MD: Duran Calhoun M.D. Measurements Intervals [place] Rate: 64 P: 22 MD: 199 QRS: -37 QRSD: 169 T: 93 QT: 461 QTc: 476 Interpretive Statements SINUS RHYTHM LEFT AXIS DEVIATION [QRS AXIS < -30] LEFT BUNDLE BRANCH BLOCK [120+ ms QRS DURATION, 80+ ms Q/S IN V1/V2, 85+ ms R IN I/aVL/V5/V6] Compared to ECG 03/14/2022 10:14:18 No significant changes Electronically Signed On 03-14-2022 19:51:25 CDT by Duran Calhoun M.D. [email or web address]/store/[id number] f
[2022-03-14 11:27] LABS: Troponin 5 2HR 9.07 ng/L (0-15)
[2022-03-14 11:37] LABS: Troponin 5 2HR Delta 0.07 ABS# (0-10)
[2022-03-14 12:45] VITALS: BP 110/62; PULSE 68; RESP 16; TEMP 36.6; O2SAT 95
== END 2022-03-14 12:46 | disposition home or self-care (01) ==
PROVIDERS: Emergency Provider Physician Assistant; PCP Family Medicine
DX: R20.0 Anesthesia of skin (principal); I10 Essential (primary) hypertension
CPT/HCPCS: 70450; 71045; 80053; 83880; 84484; 85025; 93005; 99285

== ENCOUNTER → 2022-04-03 11:51 | Outpatient (BNVA) | payer MEDICARE, MEDICAID, SELFPAY | PROVIDERS: PCP Family Medicine; Visit Provider Specialist | DX: Z09 Encounter for follow-up examination after completed treatment for conditions other than malignant neoplasm (principal); Z87.898 Personal history of other specified conditions | CPT/HCPCS: 99213 ==

== ENCOUNTER → 2022-09-04 10:03 | Outpatient (BNVA) | payer MEDICARE, MEDICAID, SELFPAY | PROVIDERS: PCP Family Medicine; Visit Provider Specialist | DX: R41.82 Altered mental status, unspecified (principal); F81.9 Developmental disorder of scholastic skills, unspecified | CPT/HCPCS: 99213 ==

== ENCOUNTER → 2022-11-01 13:26 | Outpatient (BNVA) | payer MEDICARE, MEDICAID, SELFPAY | PROVIDERS: PCP Family Medicine; Visit Provider Internal Medicine | DX: I10 Essential (primary) hypertension (principal); I44.7 Left bundle-branch block, unspecified | CPT/HCPCS: 99214 ==

== ENCOUNTER 2023-07-10 07:33 | Emergency (ER) | payer MEDICARE, MEDICAID, SELFPAY ==
[2023-07-10 07:37] VITALS: BP 148/88; PULSE 65; RESP 18; TEMP 37; O2SAT 95; BMI 22.3
[2023-07-10 07:45] VITALS: BP 148/88; PULSE 68; RESP 18; TEMP 37; O2SAT 95
--- NOTE | 2023-07-10 07:45 | ECG_ITS ---
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 Measurements Intervals [place] Rate: 62 P: 28 GA: 194 QRS: -13 QRSD: 176 T: 44 QT: 454 QTc: 463 Interpretive Statements SINUS RHYTHM LEFT BUNDLE BRANCH BLOCK [120+ ms QRS DURATION, 80+ ms Q/S IN V1/V2, 85+ ms R IN I/aVL/V5/V6] Compared to ECG 03/14/2022 11:14:52 Left-axis deviation no longer present Electronically Signed On 07-10-2023 10:10:21 WARD AIDE by Duran Calhoun M.D. [email or web address].ClickToShop/store/[id number] f
--- NOTE | 2023-07-10 08:01 | ED_ITS ---
HPI - Chest Pain 2 General: Chief Complaint: Chest Pain Stated Complaint: ams Time Seen by Provider: 07/10/23 07:34 Source: patient Mode of arrival: ambulatory History of Present Illness: 63-year-old male presents to the emergen cy room with complaint of cough and chest discomfort. He left his jail this morning and evidently wandered was found in a building lying down. It is difficult to get a history from him. He is fairly sedate he did take a Xanax this morning he takes it 4 times daily. Denies any vomiting no dysuria urgency or frequency. Denies any chest pain or shortness of breath at this time MD complaint: chest pain Onset (ago): unknown Timing of current episode: episodic Pain location: left chest Pain radiation: left shoulder Quality: tightness and heaviness Relieving factors: nothing Exacerbating factors: nothing Associated symptoms: Deny abdominal pain, diaphoresis, dyspnea, fever(s), leg edema, nausea, palpitations, sense of impending doom, syncope or vomiting Review of Systems 2 Const: Denies: fever(s), chills or diaphoresis Card: Denies: chest pain, palpitations or syncope Resp: Denies: dyspnea GI: Denies: abdominal pain, nausea or vomiting : Denies: dysuria, urinary frequency or urinary urgency Musc: Denies: neck pain or back pain Skin/Breast: Denies: rash PFSH ED 2 PFSH: Medical History Psychiatric care HTN (hypertension) Surgical History History of cholecystectomy Social History Smoking and tobacco/nicotine status: never used tobacco/nicotine Physical Exam 2 Const: COMMON NORMALS: no acute distress GENERAL APPEARANCE: cooperative and comfortable ORIENTATION/CONSCIOUSNESS: Yes awake, Yes oriented to person, Yes oriented to place and Yes oriented to time HENMT: COMMON NORMALS: normocephalic, atraumatic and hearing grossly normal bilaterally HEAD & SCALP: normocephalic and atraumatic Resp: COMMON NORMALS: normal respiratory effort, No retractions, No use of accessory muscles and clear to auscultation bilaterally AUSCULTATION: clear to auscultation bilaterally Cardio: COMMON NORMALS: regular rate, regular rhythm and No murmurs present (Cardio) RATE: regular rate RHYTHM: regular rhythm GI: COMMON NORMALS: Soft to palpation and No hepatosplenomegaly present A USCULTATION: Yes normoactive bowel sounds PALPATION: Yes Soft to palpation, No Tenderness to palpation present (GI), No Guarding due to palpation present (GI) and Yes No hepatosplenomegaly present Extremity: COMMON NORMALS: normal to inspection, capillary refill normal, no clubbing, cyanosis or edema, no calf tenderness and no pedal edema Neuro: SENSORIUM/ORIENTATION: Yes oriented to person, Yes oriented to place and Yes oriented to time Skin: COMMON NORMALS: no rashes or lesions noted GENERAL SKIN EXAM: no rashes or lesions noted Course 2 Vital Signs: Vital signs: Vital Signs Temperature 98.6 F 07/10/23 07:45 Pulse Rate 73 07/10/23 12:26 Respiratory Rate 18 07/10/23 10:12 Blood Pressure 120/72 07/10/23 12:26 Pulse Oximetry 97 07/10/23 12:26 Oxygen Delivery Me thod Room Air 07/10/23 07:45 MDM - Chest Pain Medical Decision Making EKG shows left bundle branch block which was present previously on 03/14/2022. Delta troponin less than 4 patient is not having any current symptoms discharged home return to ER if has further problems. During the course of the ER stay patient, more awake and animated. Medical Records I reviewed the patient's medical records. Lab Data I reviewed the patient's lab results. 07/10/23 07:48 07/10/23 07:[address] 07/10/23 10:33 IMPRESSION: No acute intracranial findings. Laboratory Results WBC 8.90 10^3/uL (3.29-11.43) 07/10/23 07:48 RBC 4.52 10^6/uL (3.85-5.65) 07/10/23 07:48 Hgb 14.70 g/dL (11.27-16.99) 07/10/23 07:48 Hct 44.2 % (37-53) 07/10/23 07:48 MCV 97.8 fl (82-101) 07/10/23 07:48 MCH 32.5 pg (27-33) 07/10/23 07:48 MCHC 33.3 g/dL (30-55) 07/10/23 07:48 RDW 12.3 % (12.1-15.1) 07/10/23 07:48 Plt Count 176 10^3/cmm (157-399) 07/10/23 07:48 MPV 12.8 fL (7.4-10.4) H 07/10/23 07:48 Neut % (Auto) 72.8 % 07/10/23 07:48 Lymph % (Auto) 16.0 % 07/10/23 07:48 [place] % (Auto) 6.9 % 07/10/23 07:48 Eos % (Auto) 3.4 % 07/10/23 07:48 Baso % (Auto) 0.6 % 07/10/23 07:48 Neut # (Auto) 6.49 10^3/uL (1.8-7.7) 07/10/23 07:48 Lymph # (Auto) 1.4 10^3/uL (0.8-4.8) 07/10/23 07:48 [place] # (Auto) 0.6 10^3/uL (0.2-0.9) 07/10/23 07:48 Eos # (Auto) 0.3 10^3/uL (0.0-0.8) 07/10/23 07:48 Baso # (Auto) 0.1 10^3/uL (0.0-0.1) 07/10/23 07:48 Nucleated RBC % (auto) 0 % 07/10/23 07:48 Nucleated RBCs # 0.0 /100WBC 07/10/23 07:48 Sodium 137 mmol/L (136-145) 07/10/23 07:48 Potassium 3.6 mmol/L (3.5-5.1) 07/10/23 07:48 Chloride 97 mmol/L (98-107) L 07/10/23 07:48 Carbon Dioxide 29 mmol/L (22-29) 07/10/23 07:48 Anion Gap 14.6 (5-19) 07/10/23 07:48 BUN 13 mg/dL (8-23) 07/10/23 07:48 Creatinine 0.8 mg/dL (0.7-1.2) 07/10/23 07:48 GFR Calculation 97.3 mL/min (90-130) 07/10/23 07:48 Glucose 120 mg/dL (65-115) H 07/10/23 07:48 Calculated Osmolality 285 mOsm/kg (285-295) 07/10/23 07:48 Calcium 9.4 mg/dL (8.5-10.5) 07/10/23 07:48 Total Bilirubin 0.5 mg/dL (0.15-1.2) 07/10/23 07:48 AST 23 U/L (0-40) 07/10/23 07:48 ALT 31 U/L (0-41) 07/10/23 07:48 Alkaline Phosphatase 123 U/L (40-130) 07/10/23 07:48 Troponin T Baseline 9 ng/L (0-15) 07/10/23 07:48 Troponin T 120 Minute 12.24 ng/L (0-15) 07/10/23 09:31 Delta Troponin T 3.24 ABS# (0-10) 07/10/23 09:31 Total Protein 7.1 g/dL (6.6-8.7) 07/10/23 07:48 Albumin 4.2 g/dL (3.5-5.2) 07/10/23 07:48 Globulin 2.9 g/dL (1.3-4.6) 07/10/23 07:48 TSH 2.11 uIU/mL (0.27-4.20) 07/10/23 07:48 Urine Color Yellow (Yellow) 07/10/23 09:10 Urine Appearance Clear (CLEAR) 07/10/23 09:10 Urine pH 6 (5-7) 07/10/23 09:10 Ur Specific [place] 1.010 (1.005-1.030) 07/10/23 09:10 Urine Protein Neg (Negative) 07/10/23 09:10 Urine Glucose (UA) Norm (Normal) 07/10/23 09:10 Urine Ketones Negative (Negative) 07/10/23 09:10 Urine Blood Neg (Negative) 07/10/23 09:10 Urine Nitrate Negative (Negative) 07/10/23 09:10 Urine Bilirubin Neg (Negative) 07/10/23 09:10 Urine Urobilinogen Norm mg/dL (Negative) 07/10/23 09:10 Ur Leukocyte Esterase Negative (Negative) 07/10/23 09:10 Salicylates < 0.3 mg/dL (3-10) L 07/10/23 07:48 Urine Opiates Screen Negative ng/mL (Negative) 07/10/23 09:10 Acetaminophen < 5.0 ug/mL (10-30) L 07/10/23 07:48 Ur Barbiturates Screen Negative ng/mL (Negative) 07/10/23 09:10 Ur Phencyclidine Scrn Negative ng/mL (Negative) 07/10/23 09:10 Ur Amphetamines Screen Negative ng/mL (Negative) 07/10/23 09:10 U Benzodiazepines Scrn Positive ng/mL (Negative) H 07/10/23 09:10 Urine Cocaine Screen Negative ng/mL (Negative) 07/10/23 09:10 U Marijuana (THC) Screen Negative ng/mL (Negative) 07/10/23 09:10 Ethyl Alcohol < 10 mg/dL (0-10) 07/10/23 07:48 All radiology interpretation(s) finalized by discharge Discharge Plan Discharge Patient Disposition: Home Clinical Impression: Panic disorder, Developmental disorder, Medication adverse effect Chest pain Qualifiers: Chest pain type: unspecified Qualified Code(s): R07.9 - Chest pain, unspecified Condition: Stable Prescriptions: No Action allopurinol 300 mg tablet 300 mg PO DAILY@07 metoprolol succinate 25 mg tablet extended release 24 hr 25 mg PO DAILY@07 rosuvastatin 20 mg tablet 20 mg PO BEDTIME chlorthalidone 25 mg tablet 12.5 mg PO DAILY@07 alprazolam 0.25 mg tablet 0.5 mg PO TID@07,12,17 cyanocobalamin (vitamin B-12) 1,000 mcg capsule 1,000 mcg PO DAILY lamotrigine [Lamictal] 200 mg tablet 100 mg PO BID Qty: 60 3RF lamotrigine [Lamictal] 100 mg tablet 50 mg PO BID 14 Days Qty: 14 0RF alprazolam [Xanax] 1 mg Tablet 1 mg PO BEDTIME@20 diphenoxylate-atropine [Lonox] 2.5-0.025 mg Tablet 2 tab PO QID PRN (Reason: Loose Stool) acetaminophen [Tylenol Ex Str Rapid Release] 500 mg Tablet 500 - 1,000 mg PO .Q4-6H PRN (Reason: Pain) bismuth subsalicylate [Pepto-Bismol] 262 mg/15 mL Suspension 524 mg PO Q4H PRN (Reason: Diarrhea) omeprazole 20 mg Capsule,Delayed Release(Dr/Ec) 20 mg PO DAILY@07 fluticasone propionate [Flovent HFA] 110 mcg/actuation Hfa Aerosol Inhaler 2 puff INHALATION DAILY@07 escitalopram oxalate 20 mg Tablet 20 mg PO DAILY@07 cholecalciferol (vitamin D3) [Vitamin D3] 25 mcg (1,000 unit) Tablet 25 mcg PO DAILY@07 lisinopril 40 mg tablet 40 mg PO DAILY Discharge Orders: Discharge ED (Routine); Ordered 07/10/23 Ordered By: Jorge Dangelo Referrals: Matthew Sanchez MD [Primary Care Provider] - Discharge Diet: Usual diet Discharge Activity: Increase activity as tolerated Patient Instructions: Opioid Safety, Pain Management Activity Restrictions/Additional Instructions: Thank you for choosing [facility] for your healthcare needs today. Please realize this is an emergency room and that we are providing you with a medical screening exam and this may not be complete and all inclusive of all the testing and or work up that you may need to determine your ailment or severity of your illness. It is very important that you follow up as instructed or that you return to the Emergency Department should you have concerns or if your condition changes or worsens in any way. You are seen today for episode of chest pain and confusion. Suspect your confusion is due to the Xanax that you have been using recommend decrease the dose. Your cardiac enzymes and EKG was unremarkable. Follow-up with your primary care doctor as needed. Recommend you do not drive when taking Xanax Stand Alone Forms: Work/School Release Coding Level of Care Code ED Specialty Plant Supervisor for Bekah Pollock
[2023-07-10 08:12] LABS: Basophils # 0.1 10^3/uL (0.0-0.1); Basophils % 0.6 %; Eosinophils # 0.3 10^3/uL (0.0-0.8); Eosinophils % 3.4 %; Hematocrit 44.2 % (37-53); Lymphocytes # 1.4 10^3/uL (0.8-4.8); Mean Corpuscular HGB Conc 33.3 g/dL (30-55); Mean Corpuscular Hemoglobin 32.5 pg (27-33); Mean Corpuscular Volume 97.8 fl (82-101); Mean Platelet Volume 12.8 fL (7.4-10.4); Monocytes # 0.6 10^3/uL (0.2-0.9); Monocytes % 6.9 %; Neutrophils # 6.49 10^3/uL (1.8-7.7); Neutrophils % 72.8 %; Nucleated Red Blood Cells % 0 %; Platelet Count 176 10^3/cmm (157-399); Red Blood Count 4.52 10^6/uL (3.85-5.65); Red Cell Distribution Width 12.3 % (12.1-15.1)
--- NOTE | 2023-07-10 08:12 | XR_ITS ---
WS: [id number] Portable AP upright chest, 07/10/2023 Clinical Data: dyspnea/cough Comparison: Portable chest, 03/14/2022 Findings: No nodules, masses or effusions are seen. The heart is normal. The pulmonary vascularity is not increased. No pneumonia or pneumothorax is seen. Monitor leads are on the chest wall. Impression: Negative chest.
[2023-07-10 08:37] LABS: Alanine Aminotransferase 31 U/L (0-41); Albumin Level 4.2 g/dL (3.5-5.2); Alkaline Phosphatase 123 U/L (40-130); Anion Gap 14.6 (5-19); Aspartate Amino Transferase 23 U/L (0-40); Blood Urea Nitrogen 13 mg/dL (8-23); Calcium 9.4 mg/dL (8.5-10.5); Carbon Dioxide 29 mmol/L (22-29); Chloride 97 mmol/L (98-107); Globulin 2.9 g/dL (1.3-4.6); Glomerular Filtration Rate 97.3 mL/min (90-130); Glucose 120 mg/dL (65-115); Osmolality Calculated 285 mOsm/kg (285-295); Potassium 3.6 mmol/L (3.5-5.1); Sodium 137 mmol/L (136-145); Thyroid Stimulating Hormone 2.11 uIU/mL (0.27-4.20); Total Bilirubin 0.5 mg/dL (0.15-1.2); Total Protein 7.1 g/dL (6.6-8.7)
[2023-07-10 08:38] LABS: Acetaminophen < 5.0 ug/mL (10-30); Alcohol Level < 10 mg/dL (0-10); Salicylate < 0.3 mg/dL (3-10)
[2023-07-10 08:43] LABS: Troponin(5th) Baseline 9 ng/L (0-15)
[2023-07-10 09:20] LABS: Add Urine Microscopic? NO; Charge for UA Resulting for Rev
[2023-07-10 09:24] LABS: Bilirubin Urine Neg (Negative); Blood Urine Neg (Negative); Glucose Urine UA Norm (Normal); Ketones Urine Negative (Negative); Leukocyte Esterase Urine Negative (Negative); Nitrate Urine Negative (Negative); Protein Urine Neg (Negative); Urine Appearance Clear (CLEAR); Urine Color Yellow (Yellow); Urobilinogen Urine Norm (Negative); pH Urine 6 (5-7)
[2023-07-10 09:30] LABS: Amphetamines Screen Urine Negative (Negative); Barbiturates Screen Urine Negative (Negative); Benzodiazepines Screen Urine Positive (Negative); Cocaine Screen Urine Negative (Negative); Opiate Screen Urine Negative (Negative); PCP Screen Urine Negative (Negative); THC Screen Urine Negative (Negative)
[2023-07-10 09:56] LABS: Troponin 5 2HR 12.24 ng/L (0-15); Troponin 5 2HR Delta 3.24 ABS# (0-10)
[2023-07-10 10:12] VITALS: BP 121/71; PULSE 57; RESP 18; O2SAT 97
--- NOTE | 2023-07-10 10:12 | ECG_ITS ---
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 Measurements Intervals [place] Rate: 57 P: 31 IN: 202 QRS: -27 QRSD: 161 T: 90 QT: 435 QTc: 425 Interpretive Statements SINUS BRADYCARDIA LEFT BUNDLE BRANCH BLOCK [120+ ms QRS DURATION, 80+ ms Q/S IN V1/V2, 85+ ms R IN I/aVL/V5/V6] Compared to ECG 07/10/2023 07:40:17 Sinus rhythm no longer present Electronically Signed On 07-10-2023 10:10:27 OFFSET PRESSMAN by Duran Calhoun M.D. [email or web address].[email or web address]/store/[id number]
--- NOTE | 2023-07-10 10:33 | CTR_ITS ---
PROCEDURE INFORMATION: Exam: CT Head Without Contrast Exam date and time: 07/10/2023 11:09 AM Age: 63 years old Clinical indication: Altered mental status/memory loss and walking, difficulty; Patient HX: Patient from a alf who was discovered lying down in another building. Patient is lethargic with ataxia. ; Additional info: Ams/ataxia TECHNIQUE: Imaging protocol: Computed tomography of the head without contrast. COMPARISON: 1. CT head wo con* [id number] 03/14/2022 9:[address] head wo con* [id number] 12/27/2021 12:[address] head wo con* [id number] 03/30/2021 10:04 AM RADIATION DOSE METRICS: Total DLP (mGy-cm): 1114.29 FINDINGS: Brain: Diffuse cerebral atrophy, consistent with patient's age. No hemorrhage. Preserved rae-white matter differentiation. Mild cerebral white matter hypoattenuation likely on the basis of chronic microvascular ischemic change. No mass effect. Cerebral ventricles: Ventricles are in proportion to the degree of atrophy. Stable lateral ventricular asymmetry with larger left lateral ventricle. No acute hydrocephalus. Paranasal sinuses: Visualized sinuses are unremarkable. No fluid levels. Mastoid air cells: Visualized mastoid air cells are well aerated. Bones/joints: Unremarkable. No acute fracture. Soft tissues: Unremarkable. Vasculature: Bilateral ICA calcifications. CT/CT head wo con* [id number] IMPRESSION: No acute intracranial findings.
[2023-07-10 12:26] VITALS: BP 120/72; PULSE 73; O2SAT 97
== END 2023-07-10 12:31 | disposition home or self-care (01) ==
PROVIDERS: Emergency Provider Family Medicine; PCP Family Medicine
DX: F41.0 Panic disorder [episodic paroxysmal anxiety] (principal); F89 Unspecified disorder of psychological development; R07.9 Chest pain, unspecified; T42.4X5A Adverse effect of benzodiazepines, initial encounter; I10 Essential (primary) hypertension; I44.7 Left bundle-branch block, unspecified
CPT/HCPCS: 36415; 70450; 71045; 80053; 80306; 80307; 81003; 84443; 84484; 85025; 93005; 99285

== ENCOUNTER → 2023-07-16 14:40 | Outpatient (BNVA) | payer MEDICARE, MEDICAID, SELFPAY | PROVIDERS: PCP Family Medicine; Referring Provider Family Medicine; Visit Provider Specialist | DX: R40.4 Transient alteration of awareness (principal); R56.9 Unspecified convulsions | CPT/HCPCS: 99214 ==

== ENCOUNTER → 2023-09-03 10:45 | Outpatient (BNVA) | payer MEDICARE, MEDICAID, SELFPAY | PROVIDERS: PCP Family Medicine; Visit Provider Specialist | DX: R29.90 Unspecified symptoms and signs involving the nervous system (principal); R40.4 Transient alteration of awareness; R56.9 Unspecified convulsions; F89 Unspecified disorder of psychological development | CPT/HCPCS: 99213 ==

== ENCOUNTER → 2023-10-01 11:46 | Outpatient (BNVA) | payer MEDICARE, MEDICAID, SELFPAY | PROVIDERS: PCP Family Medicine; Visit Provider Specialist | DX: R56.9 Unspecified convulsions (principal); R40.4 Transient alteration of awareness | CPT/HCPCS: 95819 ==

== ENCOUNTER → 2023-11-04 12:16 | Outpatient (BNVA) | payer MEDICARE, MEDICAID, SELFPAY | PROVIDERS: PCP Family Medicine; Visit Provider Internal Medicine | DX: R07.9 Chest pain, unspecified (principal); I10 Essential (primary) hypertension; I44.7 Left bundle-branch block, unspecified | CPT/HCPCS: 99214 ==

== ENCOUNTER → 2023-12-31 09:45 | Outpatient (BNVA) | payer MEDICARE, MEDICAID, SELFPAY | PROVIDERS: PCP Family Medicine; Visit Provider Specialist | DX: R40.4 Transient alteration of awareness (principal); R29.90 Unspecified symptoms and signs involving the nervous system; R56.9 Unspecified convulsions; F89 Unspecified disorder of psychological development | CPT/HCPCS: 99213; 99214 ==

== ENCOUNTER → 2024-01-20 09:46 | Outpatient (BNVA) | payer MEDICARE, MEDICAID, SELFPAY | PROVIDERS: PCP Family Medicine; Visit Provider Specialist | DX: R56.9 Unspecified convulsions (principal); R40.4 Transient alteration of awareness; F89 Unspecified disorder of psychological development | CPT/HCPCS: 95819 ==

== ENCOUNTER 2024-01-23 17:05 | Emergency (ER) | payer MEDICARE, MEDICAID, SELFPAY ==
[2024-01-23 17:11] VITALS: BP 126/78; PULSE 70; RESP 15; TEMP 36.6; O2SAT 98
--- NOTE | 2024-01-23 18:34 | XRR_ITS ---
PROCEDURE INFORMATION: Exam: XR Chest Exam date and time: 01/23/2024 7:04 PM Age: 63 years old Clinical indication: Shortness of breath and other: Fainting; Additional info: AMS TECHNIQUE: Imaging protocol: Radiologic exam of the chest. Views: 1 view. COMPARISON: CR XR chest 1V portable [id number] 07/10/2023 8:19 AM FINDINGS: Lungs: Bibasilar streaky atelectasis/scar is unchanged from prior imaging as far back as 03/14/2020. No new opacity. Pleural spaces: Unremarkable. No pleural effusion. No pneumothorax. Heart/Mediastinum: Unremarkable. No cardiomegaly. Bones/joints: Chronic deformity of the proximal right humerus and features of rotator cuff tear again demonstrated. XR/XR chest 1V portable [id number] IMPRESSION: No acute plain radiographic cardiopulmonary abnormality . Mild bibasilar scar. No interval change from prior imaging.
--- NOTE | 2024-01-23 18:38 | ED_ITS ---
HPI - Headache 2 General: Chief Complaint: Headache Stated Complaint: having fainting spells Time Seen by Provider: 01/23/24 18:32 Source: patient Mode of arrival: ambulatory Limitations: no limitations History of Present Illness: 63-year-old male who per family had some increased confusion over the last 3 weeks he had a history of a stroke in the past along with a developmental disorder. He states he has had some increasing falls complaints of headaches that been getting loss more normal. He is able answer my questions here appropriately knows the president the year his name where he is from. He has a mild headache currently denies any pain elsewhere denies any fevers. Associated symptoms: Reports confusion; Deny chest pain, fever(s), nausea, rash or vomiting Review of Systems 2 Const: Denies: fever(s), chills, body aches or change in appetite ENMT: Denies: throat pain or dental pain Card: Denies: chest pain Resp: Denies: dyspnea GI: Denies: abdominal pain, nausea, vomiting or diarrhea Musc: Denies: neck pain or back pain Skin/Breast: Denies: rash Neuro: Reports: headache(s) and confusion PFSH ED 2 PFSH: Medical History Psychiatric care HTN (hypertension) Surgical History History of cholecystectomy Social History Smoking and tobacco/nicotine status: never used tobacco/nicotine Physical Exam 2 Const: COMMON NORMALS: no acute distress, patient oriented x3 and healthy appearing HENMT: COMMON NORMALS: normocephalic and atraumatic HEAD & SCALP: n ormocephalic and atraumatic Eye: COMMON NORMALS: Equal, round and reactive pupils present and EOMs intact bilaterally PUPIL: Yes Equal, round and reactive pupils present Neck/C-Spine: COMMON NORMALS: full ROM and supple Chest: COMMONS NORMALS: normal inspection of the chest Resp: COMMON NORMALS: normal respiratory effort Cardio: COMMON NORMALS: regular rate, regular rhythm and No murmurs present (Cardio) RATE: regular rate RHYTHM: regular rhythm Extremity: COMMON NORMALS: normal to inspection Neuro: COMMON NORMALS: patient oriented x3, moves all extremities and no focal motor deficits Psych: COMMON NORMALS: mental status grossly normal Skin: COMMON NORMALS: no rashes or lesions noted and no wounds GENERAL SKIN EXAM: no rashes or lesions noted Course 2 Vital Signs: Vital signs: Vital Signs Temperature 97.9 F 01/23/24 17:11 Pulse Rate 64 01/23/24 19:10 Respiratory Rate 16 01/23/24 19:10 Blood Pressure 126/78 01/23/24 17:11 Pulse Oximetry 94 01/23/24 19:10 Oxygen Delivery Me thod Room Air 01/23/24 19:10 MDM - Headache Medical Decision Making Patient presents with a headache also with some increased fusion it has been going on for weeks he is not confused here he is answering my questions here appropriately his imaging blood works normal no signs of a stroke he stable for discharge follow-up PCP return if worsening Lab Data 01/23/24 19:02 01/23/24 19:02 Radiology Impressions Chest X-Ray 01/23/24 18:34 IMPRESSION: No acute plain radiographic cardiopulmonary abnormality . Mild bibasilar scar. No interval change from prior imaging. Head/Neck CTA 01/23/24 20:10 IMPRESSION: 1. No acute intracranial abnormality on CT. Further evaluation with MR as clinically warranted. 2. No acute large vessel occlusion. Moderate atherosclerotic involvement of the bilateral intracranial cavernous carotid arteries , up to 50-69% and 50% stenosis on the right and left, respectively. 3. No evidence of aneurysm formation. IMPRESSION: 1. No acute occlusion . 2. Moderate stenosis of the left vertebral artery at C3-C4 level due to adjacent uncovertebral and facet hypertrophy and spurring. Otherwise no significant stenosis in the neck. 3. Moderate to advanced multilevel cervical spondylosis. COMMENTS: Consistent with the [place] [employer]'s Incidental Findings Committee white paper (J Am Barby Radiol 2015): In patients aged 35 years and older with an incidental thyroid nodule equal to or greater than 1.[address], MRI or extrathyroidal US, further evaluation with dedicated thyroid US is recommended for patients with normal life expectancy and without comorbidities. For smaller nodules without suspicious features, no further evaluation or follow up is recommended. REFERENCES: NASCET CRITERIA. The degree of stenosis in the cervical segment of the internal carotid artery is based on NASCET criteria. Normal is no stenosis. Mild is less than 50% stenosis. Moderate is 50-69% stenosis. Severe is 70% to 99% stenosis. Total occlusion is no detectable patent lumen. Laboratory Results WBC 6.48 10^3/uL (3.29-11.43) 01/23/24 19:02 RBC 4.17 10^6/uL (3.85-5.65) 01/23/24 19:02 Hgb 13.90 g/dL (11.27-16.99) 01/23/24 19:02 Hct 42.1 % (37-53) 01/23/24 19:02 MCV 101.0 fl (82-101) 01/23/24 19:02 MCH 33.3 pg (27-33) H 01/23/24 19:02 MCHC 33.0 g/dL (30-55) 01/23/24 19:02 RDW 12.5 % (12.1-15.1) 01/23/24 19:02 Plt Count 113 10^3/cmm (157-399) L 01/23/24 19:02 MPV 12.7 fL (7.4-10.4) H 01/23/24 19:02 Neut % (Auto) 65.3 % 01/23/24 19:02 Lymph % (Auto) 19.4 % 01/23/24 19:02 [place] % (Auto) 6.9 % 01/23/24 19:02 Eos % (Auto) 7.3 % 01/23/24 19:02 Baso % (Auto) 0.6 % 01/23/24 19:02 Neut # (Auto) 4.23 10^3/uL (1.8-7.7) 01/23/24 19:02 Lymph # (Auto) 1.3 10^3/uL (0.8-4.8) 01/23/24 19:02 [place] # (Auto) 0.5 10^3/uL (0.2-0.9) 01/23/24 19:02 Eos # (Auto) 0.5 10^3/uL (0.0-0.8) 01/23/24 19:02 Baso # (Auto) 0.0 10^3/uL (0.0-0.1) 01/23/24 19:02 Nucleated RBC % (auto) 0 % 01/23/24 19:02 Nucleated RBCs # 0.0 /100WBC 01/23/24 19:02 Sodium 140 mmol/L (136-145) 01/23/24 19:02 Potassium 4.3 mmol/L (3.5-5.1) 01/23/24 19:02 Chloride 101 mmol/L (98-107) 01/23/24 19:02 Carbon Dioxide 29 mmol/L (22-29) 01/23/24 19:02 Anion Gap 14.3 (5-19) 01/23/24 19:02 BUN 21 mg/dL (8-23) 01/23/24 19:02 Creatinine 0.9 mg/dL (0.7-1.2) 01/23/24 19:02 GFR Calculation 85.0 mL/min (90-130) L 01/23/24 19:02 Glucose 99 mg/dL (65-115) 01/23/24 19:02 Calculated Osmolality 293 mOsm/kg (285-295) 01/23/24 19:02 Calcium 8.9 mg/dL (8.5-10.5) 01/23/24 19:02 Total Bilirubin 0.3 mg/dL (0.15-1.2) 01/23/24 19:02 AST 14 U/L (0-40) 01/23/24 19:02 ALT 16 U/L (0-41) 01/23/24 19:02 Alkaline Phosphatase 72 U/L (40-130) 01/23/24 19:02 Ammonia 42 umol/L (16-60) 01/23/24 19:02 Total Protein 6.3 g/dL (6.6-8.7) L 01/23/24 19:02 Albumin 4.2 g/dL (3.5-5.2) 01/23/24 19:02 Globulin 2.1 g/dL (1.3-4.6) 01/23/24 19:02 TSH 2.09 uIU/mL (0.27-4.20) 01/23/24 19:02 Urine Color Yellow (Yellow) 01/23/24 18:53 Urine Appearance Clear (CLEAR) 01/23/24 18:53 Urine pH 6 (5-7) 01/23/24 18:53 Ur Specific [place] 1.020 (1.005-1.030) 01/23/24 18:53 Urine Protein Neg (Negative) 01/23/24 18:53 Urine Glucose (UA) Norm (Normal) 01/23/24 18:53 Urine Ketones Negative (Negative) 01/23/24 18:53 Urine Blood Neg (Negative) 01/23/24 18:53 Urine Nitrate Negative (Negative) 01/23/24 18:53 Urine Bilirubin Neg (Negative) 01/23/24 18:53 Urine Urobilinogen 1 mg/dL (Negative) H 01/23/24 18:53 Ur Leukocyte Esterase Negative (Negative) 01/23/24 18:53 Valproic Acid 73.5 ug/mL (50-100) 01/23/24 19:02 All radiology interpretation(s) finalized by discharge Discharge Plan Discharge Patient Disposition: Home Clinical Impression: Headache Condition: Stable Prescriptions: No Action allopurinol 300 mg tablet 300 mg PO DAILY@07 metoprolol succinate 25 mg tablet extended release 24 hr 25 mg PO DAILY@07 rosuvastatin 20 mg tablet 20 mg PO BEDTIME chlorthalidone 25 mg tablet 12.5 mg PO DAILY@07 Arnuity Ellipta 100 mcg/actuation blister with device 1 inh inhalation DAILY [place] Cough Drops 3.2 mg lozenge 3.2 mg mucous membrane Q4H alprazolam [Xanax] 1 mg tablet 1 mg PO BEDTIME@20 Qty: 30 2RF alprazolam 0.5 mg tablet 0.5 mg PO DAILY Qty: 30 2RF aripiprazole 5 mg tablet 5 mg PO DAILY Qty: 30 2RF escitalopram oxalate 20 mg tablet 20 mg PO DAILY@07 Qty: 30 2RF cyanocobalamin (vitamin B-12) 1,000 mcg capsule 1,000 mcg PO DAILY divalproex [Depakote ER] 500 mg tablet extended release 24 hr 500 mg PO BID Qty: 60 5RF diphenoxylate-atropine [Lonox] 2.5-0.025 mg Tablet 2 tab PO QID PRN (Reason: Loose Stool) acetaminophen [Tylenol Ex Str Rapid Release] 500 mg Tablet 500 - 1,000 mg PO .Q4-6H PRN (Reason: Pain) bismuth subsalicylate [Pepto-Bismol] 262 mg/15 mL Suspension 524 mg PO Q4H PRN (Reason: Diarrhea) omeprazole 20 mg Capsule,Delayed Release(Dr/Ec) 20 mg PO DAILY@07 cholecalciferol (vitamin D3) [Vitamin D3] 25 mcg (1,000 unit) Tablet 25 mcg PO DAILY@07 lisinopril 40 mg tablet 40 mg PO DAILY Discharge Orders: Discharge ED (Routine); Ordered 01/23/24 Ordered By: Stephanie Weinstein Referrals: Matthew Sanchez MD [Primary Care Provider] - Discharge Diet: Advance as tolerated Discharge Activity: Resume usual activity Patient Instructions: General Headache (ED) Coding Level of Care Code 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
[2024-01-23 19:08] LABS: Add Urine Microscopic? NO; Charge for UA Resulting for Rev
[2024-01-23 19:10] VITALS: PULSE 64; RESP 16; O2SAT 94
[2024-01-23 19:15] LABS: Basophils % 0.6 %; Eosinophils # 0.5 10^3/uL (0.0-0.8); Eosinophils % 7.3 %; Hematocrit 42.1 % (37-53); Lymphocytes # 1.3 10^3/uL (0.8-4.8); Lymphocytes % 19.4 %; Mean Corpuscular Hemoglobin 33.3 pg (27-33); Mean Platelet Volume 12.7 fL (7.4-10.4); Monocytes # 0.5 10^3/uL (0.2-0.9); Monocytes % 6.9 %; Neutrophils # 4.23 10^3/uL (1.8-7.7); Neutrophils % 65.3 %; Nucleated Red Blood Cells % 0 %; Platelet Count 113 10^3/cmm (157-399); Red Blood Count 4.17 10^6/uL (3.85-5.65); Red Cell Distribution Width 12.5 % (12.1-15.1); White Blood Count 6.48 10^3/uL (3.29-11.43)
[2024-01-23 19:18] LABS: Bilirubin Urine Neg (Negative); Blood Urine Neg (Negative); Glucose Urine UA Norm (Normal); Ketones Urine Negative (Negative); Leukocyte Esterase Urine Negative (Negative); Nitrate Urine Negative (Negative); Protein Urine Neg (Negative); Urine Appearance Clear (CLEAR); Urine Color Yellow (Yellow); Urobilinogen Urine 1 mg/dL (Negative); pH Urine 6 (5-7)
[2024-01-23 19:29] LABS: Valproic Acid Level 73.5 ug/mL (50-100)
[2024-01-23 19:41] LABS: Alanine Aminotransferase 16 U/L (0-41); Albumin Level 4.2 g/dL (3.5-5.2); Alkaline Phosphatase 72 U/L (40-130); Anion Gap 14.3 (5-19); Aspartate Amino Transferase 14 U/L (0-40); Blood Urea Nitrogen 21 mg/dL (8-23); Calcium 8.9 mg/dL (8.5-10.5); Carbon Dioxide 29 mmol/L (22-29); Chloride 101 mmol/L (98-107); Creatinine Clr Calc Pharmacy 87.3719; Globulin 2.1 g/dL (1.3-4.6); Glucose 99 mg/dL (65-115); Osmolality Calculated 293 mOsm/kg (285-295); Potassium 4.3 mmol/L (3.5-5.1); Sodium 140 mmol/L (136-145); Thyroid Stimulating Hormone 2.09 uIU/mL (0.27-4.20); Total Bilirubin 0.3 mg/dL (0.15-1.2); Total Protein 6.3 g/dL (6.6-8.7)
[2024-01-23 19:44] LABS: Ammonia 42 umol/L (16-60)
--- NOTE | 2024-01-23 20:10 | CTR_ITS ---
PROCEDURE INFORMATION: Exam: CTA Head With Contrast, Arteriography Exam date and time: 01/23/2024 8:05 PM Age: 63 years old Clinical indication: Headache; Additional info: JUAREZ TECHNIQUE: Imaging protocol: Computed tomographic angiography of the head with contrast. Exam focused on the arteries. 3D rendering (Not supervised by radiologist): MIP and/or 3D reconstructed images were created by the technologist. Radiation optimization: All CT scans at this facility use at least one of these dose optimization techniques: automated exposure control; mA and/or kV adjustment per patient size (includes targeted exams where dose is matched to clinical indication); or iterative reconstruction. Contrast material: OMNI 350; Contrast volume: 100 ml; Contrast route: INTRAVENOUS (IV); COMPARISON: CT head wo con* [id number] 07/10/2023 11:09 AM RADIATION DOSE METRICS: Total DLP (mGy-cm): 461 FINDINGS: ANTERIOR CIRCULATION: Right internal carotid artery: Moderate atherosclerotic calcification of the right cavernous carotid artery with 50-69% stenosis focally (series 8, image 268). Right middle cerebral artery: No occlusion or significant stenosis. No aneurysm. Right anterior cerebral artery: No occlusion or significant stenosis. No aneurysm. Left internal carotid artery: Moderate atherosclerotic calcification and noncalcified plaque in the left cavernous carotid artery with up to 50% stenosis (image 271). Left middle cerebral artery: No occlusion or significant stenosis. No aneurysm. Left anterior cerebral artery: No occlusion or significant stenosis. No aneurysm. POSTERIOR CIRCULATION: Right vertebral artery: No occlusion or significant stenosis. No aneurysm. Left vertebral artery: No occlusion or significant stenosis. No aneurysm. Basilar artery: No occlusion or significant stenosis. No aneurysm. Right posterior cerebral artery: No occlusion or significant stenosis. No aneurysm. Left posterior cerebral artery: No occlusion or significant stenosis. No aneurysm. Right posterior communicating artery: origin of the right posterior cerebral from the right posterior communicating artery. Left posterior communicating artery: The left posterior communicating artery is hypoplastic. Brain: Mild chronic microvascular cerebral parenchymal change and cerebral parenchymal atrophy, stable from 07/10/2023. Mild mucosal thickening in ethmoid air cells. Cerebral ventricles: No ventriculomegaly. Bones/joints: Unremarkable. No acute fracture. Soft tissues: Unremarkable. PROCEDURE INFORMATION: Exam: CTA Neck With Contrast Exam date and time: 01/23/2024 8:05 PM Age: 63 years old Clinical indication: Headache; Additional info: JUAREZ TECHNIQUE: Imaging protocol: Computed tomographic angiography of the neck with contrast. Exam focused on the cervical segments of the vasculature. 3D rendering (Not supervised by radiologist): MIP and/or 3D reconstructed images were created by the technologist. Radiation optimization: All CT scans at this facility use at least one of these dose optimization techniques: automated exposure control; mA and/or kV adjustment per patient size (includes targeted exams where dose is matched to clinical indication); or iterative reconstruction. Contrast material: OMNI 350; Contrast volume: 100 ml; Contrast route: INTRAVENOUS (IV); COMPARISON: CT head wo con* [id number] 07/10/2023 11:09 AM RADIATION DOSE METRICS: Total DLP (mGy-cm): 461 FINDINGS: Right common carotid artery: Mild atherosclerotic plaque in the right carotid bifurcation without significant stenosis. Right internal carotid artery: No stenosis of the extracranial segment. No dissection or occlusion. Right external carotid artery: No occlusion or stenosis of the origin. Left common carotid artery: [id number] atherosclerotic plaque in the left carotid bifurcation without significant stenosis. Mild atherosclerotic plaque in the proximal left internal carotid artery without significant stenosis. Left internal carotid artery: See Left common carotid artery finding. Left external carotid artery: No occlusion or stenosis of the origin. Right vertebral artery: Right vertebral artery is unremarkable. Left vertebral artery: [id number] stenosis of the left vertebral artery at C3-C4 level (series 8, image 1 NG 2) due to facet and uncovertebral spurring. Otherwise unremarkable. Thyroid: 1.2 cm hypodense right thyroid lobe nodule. Multinodular left thyroid lobe also containing nodules up to 1.2 cm. Soft tissues: Normal. No significant soft tissue swelling. Bones/joints: Advanced multilevel facet spurring and hypertrophy, uncovertebral and endplate spurring throughout the cervical spine. Partial ankylosis of the odontoid process and C1 arch anteriorly. Large hypertrophic osseous change versus bone graft anterior to the odontoid is probably unchanged , partially imaged on other prior imaging. Mild foraminal stenosis at C2-C3 level. Moderate to high-grade left foraminal stenosis at C3-C4 and C4-C5. Moderate bilateral foraminal stenosis at C5-C6, left greater than right. Moderate left foraminal stenosis at C6-C7. Mild canal stenosis at C5-C6. Severe disc space narrowing with irregularity and partial ankylosis at C6-C7. Lungs: Hyperinflated lungs due to underlying emphysema. Mild biapical scarring and atelectatic change. CT/CT angio headneck* [id number] IMPRESSION: 1. No acute intracranial abnormality on CT. Further evaluation with MR as clinically warranted. 2. No acute large vessel occlusion. Moderate atherosclerotic involvement of the bilateral intracranial cavernous carotid arteries , up to 50-69% and 50% stenosis on the right and left, respectively. 3. No evidence of aneurysm formation. IMPRESSION: 1. No acute occlusion . 2. Moderate stenosis of the left vertebral artery at C3-C4 level due to adjacent uncovertebral and facet hypertrophy and spurring. Otherwise no significant stenosis in the neck. 3. Moderate to advanced multilevel cervical spondylosis. COMMENTS: Consistent with the [employer]'s Incidental Findings Committee white paper (J Am Barby Radiol 2015): In patients aged 35 years and older with an incidental thyroid nodule equal to or greater than 1.[address], MRI or extrathyroidal US, further evaluation with dedicated thyroid US is recommended for patients with normal life expectancy and without comorbidities. For smaller nodules without suspicious features, no further evaluation or follow up is recommended. REFERENCES: NASCET CRITERIA. The degree of stenosis in the cervical segment of the internal carotid artery is based on NASCET criteria. Normal is no stenosis. Mild is less than 50% stenosis. Moderate is 50-69% stenosis. Severe is 70% to 99% stenosis. Total occlusion is no detectable patent lumen.
[2024-01-23] MEDS: iohexol 350 mg/mL 500 mL Btl (per mL) IV (20:23)
[2024-01-23 21:51] VITALS: BP 126/78; PULSE 64; RESP 16; TEMP 36.6; O2SAT 94
== END 2024-01-23 21:43 | disposition home or self-care (01) ==
PROVIDERS: Emergency Provider Emergency Medicine; PCP Family Medicine
DX: R51.9 Headache, unspecified (principal); I10 Essential (primary) hypertension
CPT/HCPCS: 36415; 70496; 70498; 71045; 80053; 80164; 81003; 82140; 84443; 85025; 99285; Q9967

== ENCOUNTER 2024-02-15 12:13 | Emergency (ER) | payer MEDICARE, MEDICAID, SELFPAY ==
[2024-02-15 12:28] VITALS: BP 136/70; PULSE 73; RESP 18; TEMP 37.1; O2SAT 97
[2024-02-15 12:37] VITALS: O2SAT 97
--- NOTE | 2024-02-15 12:59 | XRR_ITS ---
PROCEDURE INFORMATION: Exam: XR Chest Exam date and time: 02/15/2024 1:18 PM Age: 63 years old Clinical indication: Other: Body aches; Additional info: Weakness TECHNIQUE: Imaging protocol: Radiologic exam of the chest. Views: 1 view. COMPARISON: CR (CHEST, ) 01/23/2024 7:04 PM FINDINGS: Lungs: There is chronic elevation of the left hemidiaphragm with patchy left basilar atelectasis. Pleural spaces: Unremarkable. No pleural effusion. No pneumothorax. Heart/Mediastinum: Unremarkable. No cardiomegaly. Bones/joints: Old fractures involve the right humeral head. XR/XR chest 1V portable [id number] IMPRESSION: No acute findings.
--- NOTE | 2024-02-15 13:00 | ED_ITS ---
HPI - COVID 2 General: Chief Complaint: COVID symptoms Stated Complaint: body aches Time Seen by Provider: 02/15/24 12:34 History of Present Illness: 63-year-old man with a history of gout, hypertension, anxiety, GERD, schizoaffective disorder and seizure disorder who presents from assisted living with malaise and generalized weakness. He says he has not felt well for several days. Caregiver says he has swelling in his hands and arms and has legs and feet. No known fevers. He has some nondescript pain going up his abdomen and his chest. He says he hurts all over. No nausea or vomiting. No altered mental status. No focal motor deficits. No cough. COVID Results: 2 SARS-CoV-2 Antigen (Rapid) negative (Negative) 02/15/24 13:19 Related Data Home Medications Medication Instructions Recorded Confirmed allopurinol 300 mg tablet 300 mg PO DAILY@11/03/20 01/20/24 chlorthalidone 25 mg tablet 12.5 mg PO DAILY@11/03/20 01/20/24 metoprolol succinate 25 mg 25 mg PO DAILY@11/03/20 01/20/24 tablet,extended release 24 hr rosuvastatin 20 mg tablet 20 mg PO BEDTIME 11/03/20 01/20/24 acetaminophen 500 mg tablet 500 - 1,000 mg PO .Q4-6H PRN Pain 03/30/21 01/20/24 bismuth subsalicylate 262 mg/15 mL 524 mg PO Q4H PRN Diarrhea 03/30/21 01/20/24 oral suspension (Pepto-Bismol) cholecalciferol (vitamin D3) 25 25 mcg PO DAILY@03/30/21 01/20/24 mcg (1,000 unit) tablet (Vitamin D3) diphenoxylate-atropine 2.5 2 tab PO QID PRN Loose Stool 03/30/21 01/20/24 mg-0.025 mg tablet omeprazole 20 mg capsule,delayed 20 mg PO DAILY@03/30/21 01/20/24 release cyanocobalamin (vitamin B-12) 1,000 mcg PO DAILY 07/09/23 01/20/24 1,000 mcg capsule lisinopril 40 mg tablet 40 mg PO DAILY 07/10/23 01/20/24 fluticasone furoate 100 1 inh inhalation DAILY 10/08/23 01/20/24 mcg/actuation blister powder for inhalation (Arnuity Ellipta) menthol 3.2 mg lozenges (Hunt 3.2 mg mucous membrane Q4H 10/08/23 01/20/24 Cough Drops) Previous Rx's Medication Instructions Recorded alprazolam 0.5 mg tablet 0.5 mg PO DAILY #30 tabs 01/06/24 alprazolam 1 mg tablet (Xanax) 1 mg PO BEDTIME@20 #30 tabs 01/06/24 aripiprazole 5 mg tablet 5 mg PO DAILY #30 tabs 01/06/24 escitalopram oxalate 20 mg tablet 20 mg PO DAILY@07 #30 tabs 01/06/24 divalproex 500 mg tablet,extended 500 mg PO BID #60 tabs 01/17/24 release 24 hr (Depakote ER) Allergies Allergy/AdvReac Type Severity Reaction Status Date / Time ibuprofen Allergy Unknown Verified 01/23/24 17:15 Sulfa (Sulfonamide Allergy Unknown Verified 01/23/24 17:15 Antibiotics) sulfamethoxazole Allergy Unknown Verified 01/23/24 17:15 [From Bactrim] trimethoprim [From Bactrim] Allergy Unknown Verified 01/23/24 17:15 Review of Systems 2 Narrative: Constitutional symptoms: Negative except as documented in HPI. Skin symptoms: Negative except as documented in HPI. Eye symptoms: Negative except as documented in HPI. ENMT symptoms: Negative except as documented in HPI. Respiratory symptoms: Negative except as documented in HPI. Cardiovascular symptoms: Negative except as documented in HPI. Gastrointestinal symptoms: Negative except as documented in HPI. Genitourinary symptoms: Negative except as documented in HPI. Musculoskeletal symptoms: Negative except as documented in HPI. Neurologic symptoms: Negative except as documented in HPI. Psychiatric symptoms: Negative except as documented in HPI. Endocrine symptoms: Negative except as documented in HPI. PFSH ED 2 PFSH: Medical History Psychiatric care HTN (hypertension) Surgical History History of cholecystectomy Social History Smoking and tobacco/nicotine status: never used tobacco/nicotine Physical Exam 2 Narrative: EXAM NARRATIVE: General: Alert, no acute distress. Skin: Warm, dry. Head: Normocephalic, atraumatic. Neck: Supple, trachea midline. Eye: Extraocular movements are intact. Ears, nose, mouth and throat: mucosa moist. Cardiovascular: Regular, Normal peripheral perfusion. Respiratory: Lungs are clear to auscultation, respirations are non-labored, breath sounds are equal, Symmetrical chest wall expansion. Gastrointestinal: Soft, Nontender, Non distended Musculoskeletal: Normal ROM, no deformity. Neurological: Alert and oriented, No focal neurological deficit observed. Psychiatric: Cooperative, appropriate mood & affect. Course 2 Vital Signs: Vital signs: Vital Signs Temperature 98.8 F 02/15/24 12:28 Pulse Rate 73 02/15/24 12:28 Respiratory Rate 18 02/15/24 12:28 Blood Pressure 136/70 02/15/24 12:28 Pulse Oximetry 97 02/15/24 12:37 Oxygen Delivery Me thod Room Air 02/15/24 12:37 MDM - COVID Medical Decision Making Medical decision making: Differential diagnosis for patient presenting with generalized weakness including but not limited to and based on the above HPI, review of systems and physical exam: Sepsis. Dehydration. Renal failure. Electrolyte abnormalities. Anemia. Congestive heart failure. Hypotension. Coronary syndrome. Hepatitis. Cirrhosis. Infections such as pneumonia, urinary tract infection, Tick bourne illness, Cellulitis, Viral infections including influenza and Covid-19. Workup: labwork and lab/exam driven imaging ordered to evaluate, rule in and rule out above pathologies. Chest x-ray: No acute process. No infiltrate. No pneumothorax. This was reviewed and interpreted by myself the ER physician. EKG: Time 1327. Rate 70. Normal sinus rhythm, No ST-T changes, no ectopy, left bundle branch block, This was reviewed and interpreted by myself the ER physician at 1330. Left bundle branch block was present in previous EKGs. Lab Review: Laboratory results were reviewed and interpreted by myself the emergency room physician. Lab work is unremarkable. No leukocytosis. Platelets are slightly low at 121. BUN and creatinine are normal at 11 and 1.0. proBNP is negative. No signs of heart failure. I reviewed the patient's medical record. Reexamination: Patient remained stable. No increased work of breathing. No altered mental status. No focal motor deficits. Assessment and plan: Malaise. -Patient has some vague complaints of diffuse pain but I do not find any acute findings. Suggest he follows with his primary if he continues to feel poorly. - Discharged home - Discussed findings and plan with patient. Answered any questions. - All laboratory values were reviewed and interpreted personally by myself, the ER physician - All imaging was reviewed and interpreted personally by myself, the ER physician. - Evaluation and treatment of this problem were appropriate in the emergency setting Lab Data 02/15/24 13:35 02/15/24 13:35 Radiology Impressions Chest X-Ray 02/15/24 12:59 IMPRESSION: No acute findings. Laboratory Results WBC 6.49 10^3/uL (3.29-11.43) 02/15/24 13:35 RBC 4.26 10^6/uL (3.85-5.65) 02/15/24 13:35 Hgb 14.10 g/dL (11.27-16.99) 02/15/24 13:35 Hct 42.2 % (37-53) 02/15/24 13:35 MCV 99.1 fl (82-101) 02/15/24 13:35 MCH 33.1 pg (27-33) H 02/15/24 13:35 MCHC 33.4 g/dL (30-55) 02/15/24 13:35 RDW 12.5 % (12.1-15.1) 02/15/24 13:35 Plt Count 121 10^3/cmm (157-399) L 02/15/24 13:35 MPV 11.8 fL (7.4-10.4) H 02/15/24 13:35 Neut % (Auto) 64.1 % 02/15/24 13:35 Lymph % (Auto) 18.5 % 02/15/24 13:35 Perkins % (Auto) 9.6 % 02/15/24 13:35 Eos % (Auto) 7.2 % 02/15/24 13:35 Baso % (Auto) 0.3 % 02/15/24 13:35 Neut # (Auto) 4.16 10^3/uL (1.8-7.7) 02/15/24 13:35 Lymph # (Auto) 1.2 10^3/uL (0.8-4.8) 02/15/24 13:35 Perkins # (Auto) 0.6 10^3/uL (0.2-0.9) 02/15/24 13:35 Eos # (Auto) 0.5 10^3/uL (0.0-0.8) 02/15/24 13:35 Baso # (Auto) 0.0 10^3/uL (0.0-0.1) 02/15/24 13:35 Nucleated RBC % (auto) 0 % 02/15/24 13:35 Nucleated RBCs # 0.0 /100WBC 02/15/24 13:35 Sodium 142 mmol/L (136-145) 02/15/24 13:35 Potassium 3.8 mmol/L (3.5-5.1) 02/15/24 13:35 Chloride 101 mmol/L (98-107) 02/15/24 13:35 Carbon Dioxide 31 mmol/L (22-29) H 02/15/24 13:35 Anion Gap 13.8 (5-19) 02/15/24 13:35 BUN 11 mg/dL (8-23) 02/15/24 13:35 Creatinine 1.0 mg/dL (0.7-1.2) 02/15/24 13:35 GFR Calculation 75.2 mL/min (90-130) L 02/15/24 13:35 Glucose 88 mg/dL (65-115) 02/15/24 13:35 Calculated Osmolality 293 mOsm/kg (285-295) 02/15/24 13:35 Lactic Acid 1.8 mmol/L (0.5-2.2) 02/15/24 13:35 Calcium 8.5 mg/dL (8.5-10.5) 02/15/24 13:35 Total Bilirubin 0.3 mg/dL (0.15-1.2) 02/15/24 13:35 AST 19 U/L (0-40) 02/15/24 13:35 ALT 19 U/L (0-41) 02/15/24 13:35 Alkaline Phosphatase 79 U/L (40-130) 02/15/24 13:35 C-Reactive Protein 3.0 mg/L (0.0-4.9) 02/15/24 13:35 NT-Pro-B Natriuret Pep 74 pg/mL (0-125) 02/15/24 13:35 Total Protein 6.7 g/dL (6.6-8.7) 02/15/24 13:35 Albumin 4.1 g/dL (3.5-5.2) 02/15/24 13:35 Globulin 2.6 g/dL (1.3-4.6) 02/15/24 13:35 Urine Color Yellow (Yellow) 02/15/24 13:52 Urine Appearance Clear (CLEAR) 02/15/24 13:52 Urine pH 7.0 (5-7) 02/15/24 13:52 Ur Specific Earp 1.012 (1.005-1.030) 02/15/24 13:52 Urine Protein Negative (Negative) 02/15/24 13:52 Urine Glucose (UA) Negative (Normal) 02/15/24 13:52 Urine Ketones Negative (Negative) 02/15/24 13:52 Urine Blood Negative (Negative) 02/15/24 13:52 Urine Nitrate Negative (Negative) 02/15/24 13:52 Urine Bilirubin Negative (Negative) 02/15/24 13:52 Urine Urobilinogen 1.0 mg/dL (Negative) 02/15/24 13:52 Ur Leukocyte Esterase 1+ (Negative) A 02/15/24 13:52 Urine RBC 0-2 /hpf (0-2) 02/15/24 13:52 Urine WBC 0-5 /hpf (0-5) 02/15/24 13:52 Ur Squamous Epith Cells 0-5 /hpf (0-5) 02/15/24 13:52 Amorphous Sediment Not Reportable 02/15/24 13:52 Urine Bacteria None seen /hpf (NONE) 02/15/24 13:52 Hyaline Casts 0-4 /lpf H 02/15/24 13:52 SARS-CoV-2 Ag (Rapid) negative (Negative) 02/15/24 13:19 2 SARS-CoV-2 Antigen (Rapid) negative (Negative) 02/15/24 13:19 All radiology interpretation(s) finalized by discharge Discharge Plan Discharge Patient Disposition: Home Clinical Impression: Malaise Condition: Stable Prescriptions: No Action allopurinol 300 mg tablet 300 mg PO DAILY@07 metoprolol succinate 25 mg tablet extended release 24 hr 25 mg PO DAILY@07 rosuvastatin 20 mg tablet 20 mg PO BEDTIME chlorthalidone 25 mg tablet 12.5 mg PO DAILY@07 Arnuity Ellipta 100 mcg/actuation blister with device 1 inh inhalation DAILY Hunt Cough Drops 3.2 mg lozenge 3.2 mg mucous membrane Q4H alprazolam [Xanax] 1 mg tablet 1 mg PO BEDTIME@20 Qty: 30 2RF alprazolam 0.5 mg tablet 0.5 mg PO DAILY Qty: 30 2RF aripiprazole 5 mg tablet 5 mg PO DAILY Qty: 30 2RF escitalopram oxalate 20 mg tablet 20 mg PO DAILY@07 Qty: 30 2RF cyanocobalamin (vitamin B-12) 1,000 mcg capsule 1,000 mcg PO DAILY divalproex [Depakote ER] 500 mg tablet extended release 24 hr 500 mg PO BID Qty: 60 5RF diphenoxylate-atropine [Lonox] 2.5-0.025 mg Tablet 2 tab PO QID PRN (Reason: Loose Stool) acetaminophen [Tylenol Ex Str Rapid Release] 500 mg Tablet 500 - 1,000 mg PO .Q4-6H PRN (Reason: Pain) bismuth subsalicylate [Pepto-Bismol] 262 mg/15 mL Suspension 524 mg PO Q4H PRN (Reason: Diarrhea) omeprazole 20 mg Capsule,Delayed Release(Dr/Ec) 20 mg PO DAILY@07 cholecalciferol (vitamin D3) [Vitamin D3] 25 mcg (1,000 unit) Tablet 25 mcg PO DAILY@07 lisinopril 40 mg tablet 40 mg PO DAILY Discharge Orders: Discharge ED (Routine); Ordered 02/15/24 Ordered By: Cyndee Lim Referrals: Matthew Sanchez MD [Primary Care Provider] - Discharge Diet: Usual diet Discharge Activity: Increase activity as tolerated Patient Instructions: Fatigue (ED) Activity Restrictions/Additional Instructions: Thank you for choosing [facility] for your healthcare needs today. Please realize this is an emergency room and that we are providing you with a medical screening exam and this may not be complete and all inclusive of all the testing and or work up that you may need to determine your ailment or severity of your illness. You have been screened and evaluated and felt safe for discharge. Health conditions do change or evolve sometimes and as such it is important that you follow up with your Primary Doctor to be re checked, 3-5 days is a general good time frame for follow up. You are always welcome to return to the ED for re assessment if your symptoms are worsening or you have new concerns Coding Level of Care Code ED [employer] Operator for Bekah Pollock
--- NOTE | 2024-02-15 13:06 | ECG_ITS ---
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 Measurements Intervals [place] Rate: 70 P: 7 HI: 179 QRS: -13 QRSD: 164 T: 95 QT: 413 QTc: 449 Interpretive Statements SINUS RHYTHM LEFT BUNDLE BRANCH BLOCK [120+ ms QRS DURATION, 80+ ms Q/S IN V1/V2, 85+ ms R IN I/aVL/V5/V6] Compared to ECG 07/10/2023 09:59:14 Sinus bradycardia no longer present Electronically Signed On 02-16-2024 9:10:47 CDT by Duran Calhoun M.D. [id number]
[2024-02-15 13:43] LABS: Basophils % 0.3 %; Eosinophils # 0.5 10^3/uL (0.0-0.8); Eosinophils % 7.2 %; Hematocrit 42.2 % (37-53); Lymphocytes # 1.2 10^3/uL (0.8-4.8); Lymphocytes % 18.5 %; Mean Corpuscular HGB Conc 33.4 g/dL (30-55); Mean Corpuscular Hemoglobin 33.1 pg (27-33); Mean Corpuscular Volume 99.1 fl (82-101); Mean Platelet Volume 11.8 fL (7.4-10.4); Monocytes # 0.6 10^3/uL (0.2-0.9); Monocytes % 9.6 %; Neutrophils # 4.16 10^3/uL (1.8-7.7); Neutrophils % 64.1 %; Nucleated Red Blood Cells % 0 %; Platelet Count 121 10^3/cmm (157-399); Red Blood Count 4.26 10^6/uL (3.85-5.65); Red Cell Distribution Width 12.5 % (12.1-15.1); White Blood Count 6.49 10^3/uL (3.29-11.43)
[2024-02-15 13:48] LABS: SARS Covid-2 Antigen negative (Negative)
[2024-02-15 13:57] LABS: Lactic Sepsis W/Reflex 1.8 mmol/L (0.5-2.2)
[2024-02-15 14:09] LABS: Alanine Aminotransferase 19 U/L (0-41); Albumin Level 4.1 g/dL (3.5-5.2); Alkaline Phosphatase 79 U/L (40-130); Anion Gap 13.8 (5-19); Aspartate Amino Transferase 19 U/L (0-40); Blood Urea Nitrogen 11 mg/dL (8-23); Calcium 8.5 mg/dL (8.5-10.5); Carbon Dioxide 31 mmol/L (22-29); Chloride 101 mmol/L (98-107); Globulin 2.6 g/dL (1.3-4.6); Glomerular Filtration Rate 75.2 mL/min (90-130); Glucose 88 mg/dL (65-115); NT Pro B Type Natriuretic Pept 74 pg/mL (0-125); Osmolality Calculated 293 mOsm/kg (285-295); Potassium 3.8 mmol/L (3.5-5.1); Sodium 142 mmol/L (136-145); Total Bilirubin 0.3 mg/dL (0.15-1.2); Total Protein 6.7 g/dL (6.6-8.7)
[2024-02-15 14:24] LABS: Bilirubin Urine Negative (Negative); Blood Urine Negative (Negative); Glucose Urine UA Negative (Normal); Ketones Urine Negative (Negative); Leukocyte Esterase Urine 1+ (Negative); Nitrate Urine Negative (Negative); Protein Urine Negative (Negative); Specific Gravity, Urine 1.012 (1.005-1.030); Urine Appearance Clear (CLEAR); Urine Color Yellow (Yellow)
[2024-02-15 14:32] LABS: Bacteria Urine None Seen /hpf; Hyaline Casts Urine 0-4 /lpf; RBC Urine 0-2 /hpf (0-2); Squamous Epithelial Cell Urine 0-5 /hpf (0-5); WBC Urine 0-5 /hpf (0-5)
== END 2024-02-15 15:02 | disposition home or self-care (01) ==
PROVIDERS: Emergency Provider Emergency Medicine; PCP Family Medicine
DX: R53.81 Other malaise (principal); Z11.52 Encounter for screening for COVID-19; I44.7 Left bundle-branch block, unspecified; I10 Essential (primary) hypertension
CPT/HCPCS: 71045; 80053; 81001; 83605; 83880; 85025; 86140; 87040; 87426; 93005; 99285

== ENCOUNTER → 2024-03-04 10:28 | Outpatient (BNVA) | payer MEDICARE, MEDICAID, SELFPAY | PROVIDERS: PCP Family Medicine; Visit Provider Specialist | DX: R56.9 Unspecified convulsions (principal); R40.4 Transient alteration of awareness; M47.812 Spondylosis without myelopathy or radiculopathy, cervical region; E04.2 Nontoxic multinodular goiter; R29.90 Unspecified symptoms and signs involving the nervous system; F89 Unspecified disorder of psychological development | CPT/HCPCS: 99214 ==

== ENCOUNTER 2024-04-02 12:05 | Outpatient (CLI) | payer MEDICARE, MEDICAID, SELFPAY ==
--- NOTE | 2024-04-02 12:15 | MR_ITS ---
WS: [id number] MRI BRAIN WITH AND WITHOUT CONTRAST HISTORY: R56.9 - Unspecified convulsions COMPARISON: None available. TECHNIQUE: Multiplanar imaging performed through the brain with MultiHance 18 ml's IV. No acute infarcts are seen. Vang-white matter differentiation is well preserved. Mild bilateral atrop hy. Minimal small vessel disease. No susceptibility artifacts or prior lacunar infarcts. Ventricles and extra-axial spaces are normal. Clivus and pituitary gland are normal. Visualized posterior fossa and brainstem are also normal. Postcontrast images are negative for masses or vascular malformations. Dural venous sinuses are normal. Paranasal sinuses: Well aerated with no significant disease. Mastoid air cells: Normal. Calvarium and scalp: Normal. MR/MR head wo/w con [id number] IMPRESSION: 1. No acute infarct. No intracranial hemorrhage. 2. Mild bilateral cerebral atrophy. 3. No prior infarct or significant small vessel disease.
[2024-04-02] MEDS: gadobenate dimeglumine 20 mL vial IV (12:55)
--- NOTE | 2024-04-02 13:00 | MR_ITS ---
WS: [id number] MRI CERVICAL SPINE NONCONTRAST HISTORY: M47.812 - Spondylosis without myelopathy or radiculopathy... COMPARISON: None available. Technique: Multiplanar, multisequence noncontrast imaging of the cervical spine. Moderate increase in cervical lordosis. Severe degenerative changes in the cervical spine. Marked hyp ertrophic bone formation surrounding the odontoid process displacing the anterior longitudinal ligame nt. No acute marrow edema. Very slight anterior wedging of C6 and C7 with partial ankylosis of the di sc. Focal increased T2 signal in the cervical cord at C3-4 measures 4 mm in length. Craniocervical junction, C1 and C2 relationship, odontoid process and soft tissues are normal. C2-C3: No central stenosis. Moderate bilateral foraminal stenosis. Facet arthritis. C3-C4: Severe central stenosis due to disc bulging, central disc protrusion and marked facet arthriti s. Severe foraminal stenosis. C4-C5: Diffuse annular disc bulging and osteophytosis. Marked facet arthritis. Severe central and concha ateral foraminal stenosis. C5-C6: Diffuse annular disc bulging with severe central and bilateral foraminal stenosis. C6-C7: Osteophytic ridging encroaching upon the ventral thecal sac and posterior displacement. Modera te central and moderate foraminal stenosis. C7-T1: Mild facet arthritis. No high-grade stenosis. Paravertebral soft tissues are negative. MR/MR cervical spin wo con* [id number] IMPRESSION: 1. Advanced degenerative cervical spondylosis with multiple levels of stenosis . 2. 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 3. Marked hypertrophic bone surrounding the odontoid process and displacing th e anterior longitudinal ligament. 4. C3-4 through C5-6: Severe central and bilateral foraminal stenosis due to c ombination of osteophytosis, disc and facet disease. 5. C6-7: Moderate central and moderate foraminal stenosis. 6. C2-3: Moderate bilateral foraminal stenosis.
== END 2024-04-02 12:06 | disposition home or self-care (01) ==
PROVIDERS: PCP Family Medicine; Visit Provider Specialist
DX: M47.812 Spondylosis without myelopathy or radiculopathy, cervical region (principal); M50.321 Other cervical disc degeneration at C4-C5 level; M50.322 Other cervical disc degeneration at C5-C6 level; M99.61 Osseous and subluxation stenosis of intervertebral foramina of cervical region; M25.78 Osteophyte, vertebrae; R40.4 Transient alteration of awareness; R56.9 Unspecified convulsions
CPT/HCPCS: 70553; 72141

== ENCOUNTER 2024-04-06 12:44 | Outpatient (CLI) | payer MEDICARE, MEDICAID, SELFPAY ==
--- NOTE | 2024-04-06 13:00 | US_ITS ---
WS: [id number] THYROID ULTRASOUND HISTORY: E04.2 - Nontoxic multinodular goiter COMPARISON: None available. Technically very difficult and limited evaluation of the thyroid gland due to body habitus. Right lobe: 1.3 cm x 1.6 cm x 4.1 cm (w x ap x l). Volume: 3.8 cm3. Poorly visualized gland. Complex cystic nodule inferior pole measures 1.3 x 1.4 x 1.4 cm. Large cysti c component with no increased vascularity. No echogenic foci. Left lobe: 1.7 cm x 2.1 cm x 3.8 cm (w x ap x l). Volume: 6.4 cm3. Enlarged hypervascular gland. Gland is very poorly visualized. Ill-defined hypoechoic nodule measurin g 1.8 x 1.3 x 1.7 cm. This nodule is very vascular. Isthmus: 0.3 cm. US/US thyroid [id number] IMPRESSION: 1. Extremely limited evaluation of the thyroid gland due to patient's body hab itus. The nodules are difficult to characterize. 2. LEFT thyroid gland is enlarged and there is a vascular nodule. This nodule would be difficult to biopsy. Nodule measures 1.8 x 1.3 x 1.7 cm.
== END 2024-04-06 12:45 | disposition home or self-care (01) ==
LOC: RAD 12:44
PROVIDERS: PCP Family Medicine; Visit Provider Specialist
DX: E04.2 Nontoxic multinodular goiter (principal)
CPT/HCPCS: 76536

== ENCOUNTER → 2024-04-08 12:11 | Outpatient (BNVA) | payer MEDICARE, MEDICAID, SELFPAY | PROVIDERS: PCP Family Medicine; Visit Provider Specialist | DX: M48.02 Spinal stenosis, cervical region (principal); I44.7 Left bundle-branch block, unspecified; I42.9 Cardiomyopathy, unspecified; R29.90 Unspecified symptoms and signs involving the nervous system; R56.9 Unspecified convulsions; R40.4 Transient alteration of awareness; F89 Unspecified disorder of psychological development; M47.12 Other spondylosis with myelopathy, cervical region | CPT/HCPCS: 99215 ==

== ENCOUNTER → 2024-04-14 14:48 | Outpatient (BNVA) | payer MEDICARE, MEDICAID, SELFPAY | PROVIDERS: PCP Family Medicine; Visit Provider Orthopaedic Surgery | DX: M47.12 Other spondylosis with myelopathy, cervical region (principal); M54.2 Cervicalgia | CPT/HCPCS: 36415; 72050; 72110; 80053; 81001; 85025; 99204 ==

== ENCOUNTER 2024-05-05 06:08 | Outpatient (CLI) | payer MEDICARE, MEDICAID, SELFPAY ==
--- NOTE | 2024-05-05 06:15 | USCV_ITS ---
Chris Guevara Age: 64 Gender: M : 1960 Exam Date: 05/05/2024 06:29 Ordering Phys: Sandra Babin MD Technologist: CELE Exam Location: [facility] – [place] Indication: chest pain BP: 114 / 74 HR: 65 Rhythm: Sinus Technical Quality: Suboptimal MEASUREMENTS (Male / Female) Normal Values 2D ECHO LV Diastolic Diameter PLAX 4.4 cm 4.2 - 5.9 / 3.9 - 5.3 cm IVS Diastolic Thickness 1.2 cm 0.6 - 1.0 / 0.6 - 0.9 cm IVS Systolic Thickness 1.5 cm LVPW Diastolic Thickness 1.9 cm 0.6 - 1.0 / 0.6 - 0.9 cm LVPW Systolic Thickness 1.8 cm LVOT Diameter 2.0 cm LV Ejection Fraction 2D Teich 72.2 % LV Ejection Fraction MOD 4C 74.7 % LV Ejection Fraction MOD 2C 49.1 % LV Ejection Fraction 2C AL 48.8 % LA Diameter 4.0 cm RA Systolic Volume 4C AL 10.1 ml RA Systolic Volume 4C MOD 10.0 ml LA Sys Volume AL 23.8 cm cubed LA Sys Volume Index AL 11.5 cm cubed/m squared Aorta at Sinotubular Diameter 2.8 cm M-MODE LA Ao Ratio MM 1.1 AV Cusp Separation MM 1.6 cm DOPPLER AV Peak Velocity 124.0 cm/s LVOT Peak Velocity 94.0 cm/s AV Area Cont Eq vti 2.5 cm squared AV Area Cont Eq pk 2.4 cm squared MV Peak Velocity 93.0 cm/s MV Area PHT 2.6 cm squared Mitral E to A Ratio 0.8 TR Peak Velocity 174.0 cm/s TR Peak Gradient 12.1 mmHg TR Mean Velocity 128.0 cm/s TR Mean Gradient 7.5 mmHg TR Velocity Time Integral 53.3 cm TV Peak E Velocity 57.0 cm/s Right Atrial Pressure 3.0 mmHg Pulmonary Artery Systolic Pressu 15.1 mmHg PV Peak Velocity 130.0 cm/s RV Ejection Time 0.3 s FINDINGS Left Ventricle Mild left ventricular hypertrophy. There is a abnormal mid distal septal wall motion abnormality, likely due to bundle branch block. Overall normal LV systolic function. Estimated LVEF 60%. Right Ventricle Normal right ventricular size and systolic function. Right Atrium Normal right atrial size. Left Atrium Mildly increased left atrial size. Mitral Valve Mitral annular calcification. Mildly thickened mitral valve. No mitral valve stenosis. No mitral valve regurgitation. Aortic Valve Thickened aortic valve. No aortic valve stenosis. No aortic valve regurgitation. Tricuspid Valve Structurally normal tricuspid valve. Pulmonic Valve Pulmonic valve not well visualized. Pericardium No pericardial effusion. Aorta Normal size aortic root. IVC Inferior vena cava not visualized. CONCLUSIONS Technically difficult echo due to poor echo windows. Mild left ventricular hypertrophy. Overall LV systolic function is normal. LVEF normal 60%. There is a mild septal wall motion abnormality likely related to bundle branch block. No significant valvular abnormality noted. RV and pulmonary pressures appear normal. Compared to last echo from 2021, LVEF is now normal. David Hughes MD (Electronically Signed) Final Date: 05 May 2024 13:20 S
== END 2024-05-05 06:09 | disposition home or self-care (01) ==
LOC: RAD 06:09
PROVIDERS: PCP Family Medicine; Visit Provider Specialist
DX: I44.7 Left bundle-branch block, unspecified (principal); I42.9 Cardiomyopathy, unspecified; I34.81 Nonrheumatic mitral (valve) annulus calcification; I35.2 Nonrheumatic aortic (valve) stenosis with insufficiency
CPT/HCPCS: 93306

== ENCOUNTER 2024-05-10 19:51 | Emergency (ER) | payer MEDICARE, MEDICAID, SELFPAY ==
[2024-05-10 20:00] VITALS: BP 119/72; PULSE 73; RESP 17; TEMP 36.6; O2SAT 97; BMI 30.4
[2024-05-10 20:03] VITALS: BP 137/81; PULSE 64; O2SAT 99
--- NOTE | 2024-05-10 22:25 | CTR_ITS ---
PROCEDURE INFORMATION: Exam: CT Head Without Contrast Exam date and time: 05/10/2024 11:50 PM Age: 64 years old Clinical indication: Injury or trauma; Blunt trauma (contusions or hematomas); Patient HX: EMS arrival from longterm for fall. Patient sustained fall due to dizziness. Did not strike head. ; Additional info: Dizzy, fall TECHNIQUE: Imaging protocol: Computed tomography of the head without contrast. Radiation optimization: All CT scans at this facility use at least one of these dose optimization techniques: automated exposure control; mA and/or kV adjustment per patient size (includes targeted exams where dose is matched to clinical indication); or iterative reconstruction. COMPARISON: MR head wo/w con [id number] 04/02/2024 12:44 PM RADIATION DOSE METRICS: Total DLP (mGy-cm): 1092.39 FINDINGS: Brain: No acute intracranial hemorrhage. No territorial region of loss of rae-white differentiation. No extra-axial collection. No mass effect or midline shift. Mild generalized parenchymal volume loss. Cerebral ventricles: No acute hydrocephalus. Paranasal sinuses: Visualized sinuses are well-aerated. No fluid levels. Mastoid air cells: Visualized mastoid air cells are well aerated. Orbital cavities: No acute abnormality. Bones: No acute calvarial fracture. Soft tissues: No acute abnormality. CT/CT head wo con* [id number] IMPRESSION: No acute findings.
[2024-05-10 22:51] LABS: Basophils # 0.1 10^3/uL (0.0-0.1); Basophils % 0.7 %; Eosinophils # 0.4 10^3/uL (0.0-0.8); Eosinophils % 5.3 %; Hematocrit 47.7 % (37-53); Lymphocytes % 29.3 %; Mean Corpuscular HGB Conc 33.1 g/dL (30-55); Mean Corpuscular Hemoglobin 32.7 pg (27-33); Mean Corpuscular Volume 98.8 fl (82-101); Mean Platelet Volume 12.5 fL (7.4-10.4); Monocytes # 0.5 10^3/uL (0.2-0.9); Monocytes % 7.6 %; Neutrophils # 3.89 10^3/uL (1.8-7.7); Nucleated Red Blood Cells % 0 %; Platelet Count 133 10^3/cmm (157-399); Red Blood Count 4.83 10^6/uL (3.85-5.65); Red Cell Distribution Width 12.5 % (12.1-15.1); White Blood Count 6.83 10^3/uL (3.29-11.43)
[2024-05-10 23:10] LABS: Alanine Aminotransferase 36 U/L (0-41); Albumin Level 4.7 g/dL (3.5-5.2); Alkaline Phosphatase 108 U/L (40-130); Anion Gap 14.5 (5-19); Aspartate Amino Transferase 33 U/L (0-40); Blood Urea Nitrogen 23 mg/dL (8-23); Calcium 9.2 mg/dL (8.5-10.5); Carbon Dioxide 33 mmol/L (22-29); Chloride 98 mmol/L (98-107); Creatinine Clr Calc Pharmacy 89.4991; Glomerular Filtration Rate 84.7 mL/min (90-130); Glucose 93 mg/dL (65-115); Osmolality Calculated 297 mOsm/kg (285-295); Potassium 3.5 mmol/L (3.5-5.1); Sodium 142 mmol/L (136-145); Total Bilirubin 0.4 mg/dL (0.15-1.2); Total Protein 7.7 g/dL (6.6-8.7)
[2024-05-10 23:25] LABS: NT Pro B Type Natriuretic Pept 120 pg/mL (0-125)
[2024-05-10 23:31] LABS: Bilirubin Urine Negative (Negative); Blood Urine Negative (Negative); Glucose Urine UA Negative (Normal); Ketones Urine Trace (Negative); Leukocyte Esterase Urine Negative (Negative); Nitrate Urine Negative (Negative); Protein Urine Negative (Negative); Urine Appearance Clear (CLEAR); Urine Color Yellow (Yellow); pH Urine 5.5 (5-7)
--- NOTE | 2024-05-10 23:32 | ECG_ITS ---
[facility] Date: 2024-05-10 Pat Name: Chris Guevara Department: Room: Gender: Male Certified Medical Aide: : 1960 Requested By: Grant Hogue Order Number: [id number] Opal MD: Alka Orourke M.D. Measurements Intervals [place] Rate: 54 P: 37 WI: 180 QRS: -27 QRSD: 174 T: 53 QT: 443 QTc: 421 Interpretive Statements SINUS BRADYCARDIA LEFT BUNDLE BRANCH BLOCK [120+ ms QRS DURATION, 80+ ms Q/S IN V1/V2, 85+ ms R IN I/aVL/V5/V6] Compared to ECG 02/15/2024 13:27:32 Sinus rhythm no longer present Electronically Signed On 05-14-2024 21:23:07 QUALITY CONTROL DIRECTOR by Alka Orourke M.D. [email or web address]
[2024-05-10 23:37] LABS: Add Urine Microscopic? YES; Bacteria Urine None Seen /hpf; Hyaline Casts Urine 2.05 /lpf; Squamous Epithelial Cell Urine 0-5 /hpf (0-5); WBC Urine 0-5 /hpf (0-5)
[2024-05-10 23:43] LABS: Specific Gravity, Urine 1.031 (1.005-1.030)
[2024-05-11] VITALS: BP 137/81; PULSE 64; O2SAT 96
--- NOTE | 2024-05-11 00:07 | W.ED.FALL ---
HPI - Fall General: Chief Complaint: Fall Stated Complaint: FALL; WEAKNESS; DIZZY Time Seen by Provider: 05/10/24 22:12 History of Present Illness: 64-year-old male who lives at [facility]. He presents after becoming dizzy, and falling. He landed on his hands and knees he said. He did not hit his head. He does complain of an exacerbation of chronic neck pain, nonradicular. His dizziness is somewhat improved now. No other complaints. He denies fever. He denies vomiting. He has had some diarrhea. Related Data Home Medications Medication Instructions Recorded Confirmed allopurinol 300 mg tablet 300 mg PO DAILY@11/03/20 05/08/24 chlorthalidone 25 mg tablet 12.5 mg PO DAILY@11/03/20 05/08/24 metoprolol succinate 25 mg 25 mg PO DAILY@11/03/20 05/08/24 tablet,extended release 24 hr rosuvastatin 20 mg tablet 20 mg PO BEDTIME 11/03/20 05/08/24 acetaminophen 500 mg tablet 500 - 1,000 mg PO .Q4-6H PRN Pain 03/30/21 05/08/24 bismuth subsalicylate 262 mg/15 mL 524 mg PO Q4H PRN Diarrhea 03/30/21 05/08/24 oral suspension (Pepto-Bismol) cholecalciferol (vitamin D3) 25 25 mcg PO DAILY@03/30/21 05/08/24 mcg (1,000 unit) tablet (Vitamin D3) diphenoxylate-atropine 2.5 2 tab PO QID PRN Loose Stool 03/30/21 05/08/24 mg-0.025 mg tablet omeprazole 20 mg capsule,delayed 20 mg PO DAILY@03/30/21 05/08/24 release cyanocobalamin (vitamin B-12) 1,000 mcg PO DAILY 07/09/23 05/08/24 1,000 mcg capsule lisinopril 40 mg tablet 40 mg PO DAILY 07/10/23 05/08/24 fluticasone furoate 100 1 inh inhalation DAILY 10/08/23 05/08/24 mcg/actuation blister powder for inhalation (Arnuity Ellipta) menthol 3.2 mg lozenges ([place] 3.2 mg mucous membrane Q4H 10/08/23 05/08/24 Cough Drops) aspirin 81 mg tablet,delayed 81 mg PO DAILY 05/08/24 05/08/24 release Previous Rx's Medication Instructions Recorded divalproex 500 mg tablet,extended 500 mg PO BID #60 tabs 01/17/24 release 24 hr (Depakote ER) alprazolam 0.5 mg tablet 0.5 mg PO DAILY #30 tabs 05/08/24 aripiprazole 5 mg tablet 5 mg PO DAILY #30 tabs 05/08/24 escitalopram oxalate 20 mg tablet 20 mg PO DAILY@07 #30 tabs 05/08/24 Allergies Allergy/AdvReac Type Severity Reaction Status Date / Time ibuprofen Allergy Unknown Verified 05/10/24 20:04 Sulfa (Sulfonamide Allergy Unknown Verified 05/10/24 20:04 Antibiotics) sulfamethoxazole Allergy Unknown Verified 05/10/24 20:04 [From Bactrim] trimethoprim [From Bactrim] Allergy Unknown Verified 05/10/24 20:04 PFS ED PFSH: Medical History Psychiatric care HTN (hypertension) Surgical History History of cholecystectomy Social History Smoking and tobacco/nicotine status: never used tobacco/nicotine Physical Exam Const: COMMON NORMALS: no acute distress and alert GENERAL APPEARANCE: cooperative and frail appearing (Mildly); not ill appearing HENMT: COMMON NORMALS: normocephalic and atraumatic HEAD & SCALP: normocephalic and atraumatic FACE & SINUS: face symmetric and other (Masklike) Eye: COMMON NORMALS: Equal, round and reactive pupils present and EOMs intact bilaterally PUPIL: Yes Equal, round and reactive pupils present Neck/C-Spine: GENERAL: Yes trachea midline Chest: CHEST: Yes Symmetrical chest wall rise Resp: COMMON NORMALS: normal respiratory effort, No use of accessory muscles and clear to auscultation bilaterally AUSCULTATION: clear to auscultation bilaterally Cardio: COMMON NORMALS: regular rate and regular rhythm RATE: regular rate RHYTHM: regular rhythm GI: COMMON NORMALS: Soft to palpation PALPATION: Yes Soft to palpation Neuro: SENSORIUM/ORIENTATION: Yes alert Course Vital Signs: Vital signs: Vital Signs Temperature 97.8 F 05/10/24 20:00 Pulse Rate 73 05/10/24 20:00 Respiratory Rate 20 H 05/11/24 00:24 Blood Pressure 119/72 05/10/24 20:00 Pulse Oximetry 94 05/11/24 00:24 Oxygen Delivery Me thod Room Air 05/10/24 20:00 MDM - Fall Medical Decision Making Laboratory is not remarkable. Head CT is not remarkable. Urinalysis is negative. I was asked to look at his lower extremities. He has minimal pitting edema. His BNP is 120. Vitals are good. Will allow discharge. Lab Data 05/10/24 22:44 05/10/24 22:[address] 05/10/24 22:25 IMPRESSION: No acute findings. Laboratory Results WBC 6.83 10^3/uL (3.29-11.43) 05/10/24 22:44 RBC 4.83 10^6/uL (3.85-5.65) 05/10/24 22:44 Hgb 15.80 g/dL (11.27-16.99) 05/10/24 22:44 Hct 47.7 % (37-53) 05/10/24 22:44 MCV 98.8 fl (82-101) 05/10/24 22:44 MCH 32.7 pg (27-33) 05/10/24 22:44 MCHC 33.1 g/dL (30-55) 05/10/24 22:44 RDW 12.5 % (12.1-15.1) 05/10/24 22:44 Plt Count 133 10^3/cmm (157-399) L 05/10/24 22:44 MPV 12.5 fL (7.4-10.4) H 05/10/24 22:44 Neut % (Auto) 57.0 % 05/10/24 22:44 Lymph % (Auto) 29.3 % 05/10/24 22:44 [place] % (Auto) 7.6 % 05/10/24 22:44 Eos % (Auto) 5.3 % 05/10/24 22:44 Baso % (Auto) 0.7 % 05/10/24 22:44 Neut # (Auto) 3.89 10^3/uL (1.8-7.7) 05/10/24 22:44 Lymph # (Auto) 2.0 10^3/uL (0.8-4.8) 05/10/24 22:44 [place] # (Auto) 0.5 10^3/uL (0.2-0.9) 05/10/24 22:44 Eos # (Auto) 0.4 10^3/uL (0.0-0.8) 05/10/24 22:44 Baso # (Auto) 0.1 10^3/uL (0.0-0.1) 05/10/24 22:44 Nucleated RBC % (auto) 0 % 05/10/24 22:44 Nucleated RBCs # 0.0 /100WBC 05/10/24 22:44 Sodium 142 mmol/L (136-145) 05/10/24 22:44 Potassium 3.5 mmol/L (3.5-5.1) 05/10/24 22:44 Chloride 98 mmol/L (98-107) 05/10/24 22:44 Carbon Dioxide 33 mmol/L (22-29) H 05/10/24 22:44 Anion Gap 14.5 (5-19) 05/10/24 22:44 BUN 23 mg/dL (8-23) 05/10/24 22:44 Creatinine 0.9 mg/dL (0.7-1.2) 05/10/24 22:44 GFR Calculation 84.7 mL/min (90-130) L 05/10/24 22:44 Glucose 93 mg/dL (65-115) 05/10/24 22:44 Calculated Osmolality 297 mOsm/kg (285-295) H 05/10/24 22:44 Calcium 9.2 mg/dL (8.5-10.5) 05/10/24 22:44 Total Bilirubin 0.4 mg/dL (0.15-1.2) 05/10/24 22:44 AST 33 U/L (0-40) 05/10/24 22:44 ALT 36 U/L (0-41) 05/10/24 22:44 Alkaline Phosphatase 108 U/L (40-130) 05/10/24 22:44 C-Reactive Protein 3.0 mg/L (0.0-4.9) 05/10/24 22:44 NT-Pro-B Natriuret Pep 120 pg/mL (0-125) 05/10/24 22:44 Total Protein 7.7 g/dL (6.6-8.7) 05/10/24 22:44 Albumin 4.7 g/dL (3.5-5.2) 05/10/24 22:44 Globulin 3.0 g/dL (1.3-4.6) 05/10/24 22:44 Urine Color Yellow (Yellow) 05/10/24 23:00 Urine Appearance Clear (CLEAR) 05/10/24 23:00 Urine pH 5.5 (5-7) 05/10/24 23:00 Ur Specific [place] 1.031 (1.005-1.030) H 05/10/24 23:00 Urine Protein Negative (Negative) 05/10/24 23:00 Urine Glucose (UA) Negative (Normal) 05/10/24 23:00 Urine Ketones Trace (Negative) 05/10/24 23:00 Urine Blood Negative (Negative) 05/10/24 23:00 Urine Nitrate Negative (Negative) 05/10/24 23:00 Urine Bilirubin Negative (Negative) 05/10/24 23:00 Urine Urobilinogen 1.0 mg/dL (Negative) 05/10/24 23:00 Ur Leukocyte Esterase Negative (Negative) 05/10/24 23:00 Urine RBC 3-5 /hpf (0-2) 05/10/24 23:00 Urine WBC 0-5 /hpf (0-5) 05/10/24 23:00 Ur Squamous Epith Cells 0-5 /hpf (0-5) 05/10/24 23:00 Amorphous Sediment Not Reportable 05/10/24 23:00 Urine Bacteria None seen /hpf (NONE) 05/10/24 23:00 Hyaline Casts 2.05 /lpf 05/10/24 23:00 All radiology interpretation(s) finalized by discharge Discharge Plan Discharge Patient Disposition: Home Clinical Impression: Dizziness Condition: Stable Prescriptions: No Action allopurinol 300 mg tablet 300 mg PO DAILY@07 metoprolol succinate 25 mg tablet extended release 24 hr 25 mg PO DAILY@07 rosuvastatin 20 mg tablet 20 mg PO BEDTIME chlorthalidone 25 mg tablet 12.5 mg PO DAILY@07 Arnuity Ellipta 100 mcg/actuation blister with device 1 inh inhalation DAILY [place] Cough Drops 3.2 mg lozenge 3.2 mg mucous membrane Q4H alprazolam 0.5 mg tablet 0.5 mg PO DAILY Qty: 30 0RF Rx Instructions: Patient will take once daily for a month then stop, patient tapered off Xanax. escitalopram oxalate 20 mg tablet 20 mg PO DAILY@07 Qty: 30 11RF aripiprazole 5 mg tablet 5 mg PO DAILY Qty: 30 11RF aspirin 81 mg tablet,delayed release (DR/EC) 81 mg PO DAILY cyanocobalamin (vitamin B-12) 1,000 mcg capsule 1,000 mcg PO DAILY divalproex [Depakote ER] 500 mg tablet extended release 24 hr 500 mg PO BID Qty: 60 5RF diphenoxylate-atropine [Lonox] 2.5-0.025 mg Tablet 2 tab PO QID PRN (Reason: Loose Stool) acetaminophen [Tylenol Ex Str Rapid Release] 500 mg Tablet 500 - 1,000 mg PO .Q4-6H PRN (Reason: Pain) bismuth subsalicylate [Pepto-Bismol] 262 mg/15 mL Suspension 524 mg PO Q4H PRN (Reason: Diarrhea) omeprazole 20 mg Capsule,Delayed Release(Dr/Ec) 20 mg PO DAILY@07 cholecalciferol (vitamin D3) [Vitamin D3] 25 mcg (1,000 unit) Tablet 25 mcg PO DAILY@07 lisinopril 40 mg tablet 40 mg PO DAILY Discharge Orders: Discharge ED (Routine); Ordered 05/11/24 Ordered By: Grant Moser Referrals: Matthew Sanchez MD [Primary Care Provider] - 1-3 days Patient Instructions: Dizziness (ED), Opioid Safety, Pain Management Activity Restrictions/Additional Instructions: Return for any worsening or concerning problems. Coding Level of Care Code ED Packaging Designer for Bekah Pollock
[2024-05-11 00:24] VITALS: RESP 20; O2SAT 94
[2024-05-11] MEDS: morphine 4 mg/mL SDV 1 mL 2 MG IVP (00:24)
[2024-05-11] MEDS: ondansetron 2 mg/ML SDV 2 mL 4 MG IVP (00:26)
[2024-05-11 00:43] VITALS: BP 123/60; PULSE 65; O2SAT 94
== END 2024-05-11 00:47 | disposition home or self-care (01) ==
PROVIDERS: Emergency Provider Emergency Medicine; PCP Family Medicine
DX: R42 Dizziness and giddiness (principal); Z79.82 Long term (current) use of aspirin; I10 Essential (primary) hypertension
CPT/HCPCS: 70450; 80053; 81001; 83880; 85025; 86140; 93005; 96374; 96375; 99285; J2270; J2405

== ENCOUNTER → 2024-05-27 13:15 | Outpatient (BNVA) | payer MEDICARE, MEDICAID, SELFPAY | PROVIDERS: PCP Family Medicine; Visit Provider Specialist | DX: R40.4 Transient alteration of awareness (principal); R56.9 Unspecified convulsions; R29.90 Unspecified symptoms and signs involving the nervous system; F89 Unspecified disorder of psychological development; R07.9 Chest pain, unspecified; I44.7 Left bundle-branch block, unspecified; I42.9 Cardiomyopathy, unspecified; M47.12 Other spondylosis with myelopathy, cervical region; R03.0 Elevated blood-pressure reading, without diagnosis of hypertension | CPT/HCPCS: 99214; 99215 ==

== ENCOUNTER → 2024-06-10 10:00 | Outpatient (BNVA) | payer MEDICARE, MEDICAID, SELFPAY | PROVIDERS: PCP Family Medicine; Visit Provider Family Medicine | DX: Z01.818 Encounter for other preprocedural examination (principal); F89 Unspecified disorder of psychological development; I10 Essential (primary) hypertension | CPT/HCPCS: 80053; 81003; 85025 ==

== ENCOUNTER → 2024-06-11 13:27 | Outpatient (BNVA) | payer MEDICARE, MEDICAID, SELFPAY | PROVIDERS: PCP Family Medicine; Visit Provider Family Medicine | DX: Z01.818 Encounter for other preprocedural examination (principal) | CPT/HCPCS: 81003 ==

== ENCOUNTER 2024-06-24 16:46 | Inpatient (IN) | payer MEDICARE, MEDICAID, SELFPAY ==
[2024-06-24] VITALS (15 sets, daily range): BP systolic 100–136; BP diastolic 47–100; PULSE 93–110; RESP 14–18; TEMP 36.3–37.3; O2SAT 90–97; BMI 26.7
--- NOTE | 2024-06-24 | XR_ITS ---
WS: [id number] C-ARM RADIOGRAPHS CERVICAL SPINE; 2 IMAGES HISTORY: ARIEL PICS COMPARISON: None available. Intraoperative imaging during cervical fusion Only a single AP film of the cervical spine is submitted. XR/XR cervical spine 3V* [id number] IMPRESSION: Intraoperative imaging during cervical fusion.
[2024-06-24] MEDS: sodium chloride 0.9% 1,000 ML 30 ML IV (10:04)
--- NOTE | 2024-06-24 10:58 | P.ANESASSM_ITS ---
Pre-Anesthetic Assessment Height/Weight: Height 1.73 m Weight 79.832 kg Temp Pulse Resp BP Pulse Ox O2 Del Method 98.4 F 95 17 136/86 96 Room Air 06/24/24 09:16 06/24/24 09:16 06/24/24 09:16 06/24/24 09:16 06/24/24 09:16 06/24/24 09:17 Preop Diagnosis: Cervical spondylosis with myelopathy Operation Date: 06/24/24 10:55 Proposed Procedures p Anterior Cervical Discectomy & Fusion ACDF w/ Anterior Interbody Fusion w/ Cage w/ Instrumentation w/ Allograft w/ Navigation(Not Applicable) - Frank Gutierrez, DO Familial anesthetic complications: None Was Beta Victor Hugo taken within 24 hours: N/A Was Clonidine taken within 24 hours: N/A Last intake: Intake Last Liquid Date 06/23/24 Last Liquid Time 23:00 Last Solid Date 06/23/24 Last Solid Time 16:00 Social No alcohol and No tobacco Exam alert, oriented x 3, clear to auscultation bilaterally and regular rate & rhythm Airway Mallampati: Class III Dentition: other (nonne) CV/HEM Hypertension LBB Neuropsych Seizure Anesthetic Plan ASA status: 3 Anesthesia: General Risk of > 500 ml blood loss (7ml/kg in children): No Medications/Allergies Home Medications Medication Instructions Recorded Confirmed Last Taken Type allopurinol 300 mg tablet 300 mg PO DAILY@11/03/20 06/23/24 06/23/24 History chlorthalidone 25 mg tablet 12.5 mg PO DAILY@11/03/20 06/23/24 06/23/24 History metoprolol succinate 25 mg 25 mg PO DAILY@11/03/20 06/23/24 06/23/24 History tablet,extended release 24 hr rosuvastatin 20 mg tablet 20 mg PO BEDTIME 11/03/20 06/23/24 06/22/24 History acetaminophen 500 mg tablet 500 - 1,000 mg PO .Q4-6H PRN Pain 03/30/21 06/23/24 06/22/24 History bismuth subsalicylate 262 mg/15 mL 524 mg PO Q4H PRN Diarrhea 03/30/21 06/23/24 06/18/24 History oral suspension (Pepto-Bismol) cholecalciferol (vitamin D3) 25 25 mcg PO DAILY@03/30/21 06/23/24 06/23/24 History mcg (1,000 unit) tablet (Vitamin D3) omeprazole 20 mg capsule,delayed 20 mg PO DAILY@03/30/21 06/23/24 06/23/24 History release cyanocobalamin (vitamin B-12) 1,000 mcg PO DAILY 07/09/23 06/23/24 06/23/24 History 1,000 mcg capsule lisinopril 40 mg tablet 40 mg PO DAILY 07/10/23 06/23/24 06/23/24 History fluticasone furoate 100 1 inh inhalation DAILY 10/08/23 06/23/24 06/23/24 History mcg/actuation blister powder for inhalation (Arnuity Ellipta) menthol 3.2 mg lozenges ([place] 3.2 mg mucous membrane Q4H 10/08/23 06/23/24 Unknown History Cough Drops) aspirin 81 mg tablet,delayed 81 mg PO DAILY 05/08/24 06/23/24 06/23/24 History release aripiprazole 2 mg tablet 2 mg PO DAILY #30 tabs 05/27/24 06/23/24 06/23/24 Rx carbidopa 25 mg-levodopa 100 mg 1 tab PO TID #90 tabs 05/27/24 06/23/24 06/23/24 Rx tablet divalproex 500 mg tablet,extended 500 mg PO DAILY #30 tabs 05/27/24 06/23/24 06/22/24 Rx release 24 hr (Depakote ER) Bone Growth Stimulator #1 ea 06/22/24 Unknown Rx escitalopram oxalate 20 mg tablet 20 mg PO DAILY@06/23/24 06/23/24 06/23/24 History (Lexapro) Allergies Allergy/AdvReac Type Severity Reaction Status Date / Time ibuprofen Allergy Unknown Verified 06/23/24 09:01 Sulfa (Sulfonamide Allergy Unknown Verified 06/23/24 09:01 Antibiotics) sulfamethoxazole Allergy Unknown Verified 06/23/24 09:01 [From Bactrim] trimethoprim [From Bactrim] Allergy Unknown Verified 06/23/24 09:01 Current Medications Generic Name Dose Route Start Last Admin Trade Name Freq PRN Reason Stop Dose Admin Sodium Chloride 1,000 mls @ 30 mls/hr 06/24/24 09:15 06/24/24 10:04 Sodium Chloride 0.9% IV 06/25/24 09:14 30 mls/hr .Q24H XOCHITL Administration PFSH Anesthesia Medical History Psychiatric care HTN (hypertension) Surgical History History of cholecystectomy Social History Smoking and tobacco/nicotine status: never used tobacco/nicotine Data Anesthesia Cardiac Studies: Echocardiogram 05/05/24 Echocardiogram Ultrasound 12/08/20 Sestamibi Stress Test (Cardiology) 11/29 Cardiac Event Monitor 12/14/20
--- NOTE | 2024-06-24 12:19 | W.PM.OPSUD ---
Surgery/Procedure H&P Update DATE OF PROCEDURE: June 24, 2024 DATE H&P PERFORMED: 06/10/24 H&P UPDATE INFORMATION: I have reviewed H&P completed within last 30 days, I have examined patient prior to procedure and No changes to prior documentation PREOP DIAGNOSIS: Cervical spondylosis with myelopathy PLANNED PROCEDURE: Operation Date: 06/24/24 10:55 Proposed Procedures p Anterior Cervical Discectomy & Fusion ACDF w/ Anterior Interbody Fusion w/ Cage w/ Instrumentation w/ Allograft w/ Navigation(Not Applicable) - Frank Gutierrez DO
[2024-06-24] MEDS: ceFAZolin 2,000 mg SDV 2000 MG IVP ×2 (13:19→20:41)
[2024-06-24] MEDS: lidocaine-epi 1% 20 mL INJ 10 ML INJECTION (14:24)
--- NOTE | 2024-06-24 16:03 | P.OP_ITS ---
Operative Report Date of procedure: June 24, 2024 Pre-op diagnosis: Cervical spondylosis with myelopathy Post-op diagnosis: same Procedure done: 1. Anterior diskectomy C3/4 2. Anterior discectomy C4/5 3. Anterior discectomy C5/6 4. Insertion of cage at C3/4 5. Insertion of cage at C4/5 6. Insertion of cage C5/6 7. Instrumentation with anterior plate from C3-C6 8. Use of allograft Surgeon: Frank Gutierrez DO Estimated blood loss (mL): 50 Procedure: 1. Anterior diskectomy C3/4 2. Anterior discectomy C4/5 3. Anterior discectomy C5/6 4. Insertion of cage at C3/4 5. Insertion of cage at C4/5 6. Insertion of cage C5/6 7. Instrumentation with anterior plate from C3-C6 8. Use of allograft The patient was taken to the operating room, where he underwent general endotracheal anesthesia without complications. He was then positioned supine on the operating table, and all areas of impingement were well padded. The arms were carefully padded and tucked at his sides. A roll was placed between the shoulder blades.. An x-ray was done to determine the appropriate level for the skin incision. The entire neck was then sterilely prepped and draped in the usual fashion. Neuromonitoring was attached prior to prepping. A transverse skin incision was made and carried down to the platysma muscle. This was then split in line with its fibers. Blunt dissection was carried down medial to the carotid sheath and lateral to the trachea and esophagus until the anterior cervical spine was visualized. A needle was placed into a disc and an x-ray was done to determine its location. The longus colli muscles were then elevated bilaterally with the electrocautery unit. Self-retaining retractors were placed deep to the longus colli muscle. Attention was brought to the C3/4 level that was confirmed on x-ray. A caspar pin was placed into the C3 vertebrae and the C4 vertebrae. The disk space was then distracted. The microscope was then brought in. A radical anterior discectomies were performed at C3/4. This included complete removal of the anterior annulus, nucleus, and posterior annulus. The posterior longitudinal ligament was removed as were the posterior osteophytes. Foraminotomies were then accomplished bilaterally. This was done using a high speed francine, kerrison r ongeurs and curretes Once all of this was accomplished, the curved currette was used to check for any residual compression. The central canal was wide open as were the foramen. A high-speed bur was used to remove the cartilaginous endplates above and below the interspace. Bleeding cancellous bone was exposed. The disc space were measured and appropriate size cage were placed sterilely onto the field. Allograft graft was packed into the cages. The cage was then placed and there was good juxtaposition against the bleeding decorticated surfaces and good distraction of each interspace. Attention was brought to the next interspace. The [place] pins were removed. Bone wax was used to prevent any bleeding from occurring at the pin sites. Attention was brought to the C4/5 level that was confirmed on x-ray. A caspar pin was placed into the C4 vertebrae and the C5 vertebrae. The disk space was then distracted. The microscope was then brought in. A radical anterior discectomies were performed at C4/5. This included complete removal of the anterior annulus, nucleus, and posterior annulus. The posterior longitudinal ligament was removed as were the posterior osteophytes. Foraminotomies were then accomplished bilaterally. This was done using a high speed francine, kerrison rongeurs and curretes Once all of this was accomplished, the curved currette was used to check for any residual compression. The central canal was wide open as were the foramen. A high-speed bur was used to remove the cartilaginous endplates above and below the interspace. Bleeding cancellous bone was exposed. The disc space were measured and appropriate size cage were placed sterilely onto the field. Allograft graft was packed into the cages. The cage was then placed and there was good juxtaposition against the bleeding decorticated surfaces and good distraction of each interspace. Attention was brought to the next interspace. The [place] pins were removed. Bone wax was used to prevent any bleeding from occurring at the pin sites. Attention was brought to the C5/6 level that was confirmed on x-ray. A caspar pin was placed into the C5 vertebrae and the C6 vertebrae. The disk space was then distracted. The microscope was then brought in. A radical anterior discectomies were performed at C5/6. This included complete removal of the anterior annulus, nucleus, and posterior annulus. The posterior longitudinal ligament was removed as were the posterior osteophytes. Foraminotomies were then accomplished bilaterally. This was done using a high speed francine, kerrison rongeurs and curretes Once all of this was accomplished, the curved currette was used to check for any residual compression. The central canal was wide open as were the foramen. A high-speed bur was used to remove the cartilaginous endplates above and below the interspace. Bleeding cancellous bone was exposed. The disc space were measured and appropriate size cage were placed sterilely onto the field. Allograft graft was packed into the cages. The cage was then placed and there was good juxtaposition against the bleeding decorticated surfaces and good distraction of each interspace. The [place] pins were removed. Bone wax was used to prevent any bleeding from occurring at the pin sites. The appropriate size anterior cervical locking plate was chosen and bent into gentle lordosis. Two screws were then placed into each of the vertebral bodies at C3, C4, C5 and C6. There was excellent purchase. A final x-ray was done confirming good position of the hardware and Cages. The locking screws were then applied, also with excellent purchase. Following a final copious irrigation, there was good hemostasis and no dural leaks. The carotid pulse was strong. The wounds were then closed in layers using 2-0 Vicryl suture for the platysma muscle, 2-0 Vicryl suture for the subcutaneous tissue, and 4-0 monocryl suture in a subcuticular skin closure. Glue was placed followed by application of a sterile dressing. The drain was hooked to bulb suction. A soft collar was applied. The patient was then carefully returned to the supine position on his hospital bed where he was reversed and extubated and taken to the recovery room having tolerated the procedure well.
[2024-06-24] MEDS: lactated ringers 1,000 ML 30 ML IV (17:37)
[2024-06-24] MEDS: docusate sodium 100 mg Capsule PO (17:37)
[2024-06-24] MEDS: cetylpyridinium Lozenge 1 EACH MUCOUS MEM (20:41)
[2024-06-24] MEDS: atorvastatin 40 mg Tablet 80 MG PO (20:41)
[2024-06-24] MEDS: HYDROcodone-acetaminophen 5-325 mg Tablet PO (20:42)
[2024-06-24] MEDS: carbidopa-levodopa 25-100mg Tablet 1 EACH PO (20:42)
[2024-06-25] VITALS: BP 106/60; PULSE 106; RESP 18; TEMP 37.4; O2SAT 92
[2024-06-25] MEDS: HYDROcodone-acetaminophen 5-325 mg Tablet PO ×2 (01:28→06:28)
[2024-06-25] MEDS: ketorolac 30 mg/mL INJ IVP (01:28)
[2024-06-25] MEDS: cetylpyridinium Lozenge 1 EACH MUCOUS MEM ×3 (01:29→07:50)
[2024-06-25 04:00] VITALS: BP 100/61; PULSE 93; RESP 17; TEMP 37.1; O2SAT 92
[2024-06-25] MEDS: ceFAZolin 2,000 mg SDV 2000 MG IVP (05:26)
[2024-06-25] MEDS: allopurinol 300 mg Tablet PO (06:27)
[2024-06-25] MEDS: chlorthalidone 25 mg Tablet 12.5 MG PO (06:27)
[2024-06-25] MEDS: pantoprazole DR 40 mg Tablet PO (06:28)
[2024-06-25] MEDS: metoprolol succinate ER (24 HR) 25 mg Tablet PO (06:28)
[2024-06-25] MEDS: cholecalciferol (vitamin D3) 1,000 unit Tablet 1000 UNIT PO (06:28)
[2024-06-25] MEDS: escitalopram 10 mg Tablet 20 MG PO (06:28)
[2024-06-25] MEDS: lisinopril 20 mg Tablet 40 MG PO (07:49)
[2024-06-25] MEDS: ARIPiprazole 2 mg Tablet PO (07:49)
[2024-06-25] MEDS: cyanocobalamin 1,000 mcg Tablet 1000 MCG PO (07:49)
[2024-06-25] MEDS: docusate sodium 100 mg Capsule PO (07:50)
[2024-06-25] MEDS: fluticasone nasal spray 16gm Btl 1 SPRAY NASAL (07:50)
[2024-06-25] MEDS: divalproex ER 500 mg Tablet (24H) PO (07:50)
[2024-06-25] MEDS: carbidopa-levodopa 25-100mg Tablet 1 EACH PO (07:50)
--- NOTE | 2024-06-25 07:59 | P.DS_ITS ---
Discharge Providers Date of Admission: 06/24/24 16:46 Date of Discharge: June 25, 2024 Attending Provider at Admission: Frank Gutierrez DO Attending Provider at Discharge: Frank Gutierrez DO Primary Care Provider: Matthew Sanchez MD Reason for Visit Reason for Visit: M48.062 Physical Exam Narrative: Patient doing well no complaints of pain sitting up eating breakfast. Without any swallowing problems Urinary Catheter Management: [place]: Cath Placed During This Visit: yes, but has since been removed by the nurse Reason for Continuing Indwelling Catheter: Perioperative Use in Selected Surgeries Urinary Catheter Date of Insertion: 06/24/24 Urinary Catheter Time of Insertion: 13:50 Date Urinary Catheter Removed: 06/25/24 Time Urinary Catheter Discontinued: 07:53 Discharge Data Studies Completed and Pending Pending at discharge Category Date Time Status C-arm Fluoroscopy 62024 Routine Exams 06/24/24 09:09 Taken Vitals Last Vital Signs Temp 98.7 F 06/25/24 04:00 Pulse 93 06/25/24 04:00 Resp 17 06/25/24 04:00 BP 100/61 06/25/24 04:00 Pulse Ox 92 06/25/24 04:00 O2 Del Method Room Air 06/25/24 04:00 Discharge Plan Discharge Patient Disposition: Home Condition: Stable Prescriptions: Continued allopurinol 300 mg tablet 300 mg PO DAILY@07 metoprolol succinate 25 mg tablet extended release 24 hr 25 mg PO DAILY@07 rosuvastatin 20 mg tablet 20 mg PO BEDTIME chlorthalidone 25 mg tablet 12.5 mg PO DAILY@07 Arnuity Ellipta 100 mcg/actuation blister with device 1 inh inhalation DAILY [place] Cough Drops 3.2 mg lozenge 3.2 mg mucous membrane Q4H aripiprazole 2 mg tablet 2 mg PO DAILY Qty: 30 11RF divalproex [Depakote ER] 500 mg tablet extended release 24 hr 500 mg PO DAILY Qty: 30 5RF carbidopa-levodopa 25-100 mg tablet 1 tab PO TID Qty: 90 5RF Rx Instructions: 1/2 with each meal for a week then 1 three times a day with meals. cyanocobalamin (vitamin B-12) 1,000 mcg capsule 1,000 mcg PO DAILY (DME) Bone Growth Stimulator See Rx Instructions .Route .MEDSUPPLY Qty: 1 0RF Rx Instructions: As directed acetaminophen 500 mg Tablet 500 - 1,000 mg PO .Q4-6H PRN (Reason: Pain) bismuth subsalicylate [Pepto-Bismol] 262 mg/15 mL Suspension 524 mg PO Q4H PRN (Reason: Diarrhea) omeprazole 20 mg Capsule,Delayed Release(Dr/Ec) 20 mg PO DAILY@07 cholecalciferol (vitamin D3) [Vitamin D3] 25 mcg (1,000 unit) Tablet 25 mcg PO DAILY@07 escitalopram oxalate [Lexapro] 20 mg tablet 20 mg PO DAILY@07 lisinopril 40 mg tablet 40 mg PO DAILY Held aspirin 81 mg tablet,delayed release (DR/EC) 81 mg PO DAILY Hold Instructions: Resume on 06/26/24. Discharge Orders: Discharge Order (Routine); Ordered 06/25/24 Ordered By: Frank Gutierrez Discharge Diet: Advance as tolerated Discharge Activity: Limit activity as instructed Patient Instructions: Acute Wound Care (DC), Opioid Safety, Post Anesthesia Care Activity Restrictions/Additional Instructions: Thank you for choosing [facility] for your care! The following is a list of instructions, from your provider, to follow upon your discharge to ensure you have the optimal recovery from your recent injury or surgery. Anterior Cervical Discectomy and Fusion: What to Expect at Home Your Recovery Follow-up care is a pryor part of your treatment and safety. Be sure to make and go to all appointments, and call your doctor if you are having problems. If you do not already have a follow-up appointment made, call office in the next 1-3 days to make follow up appointment for 2 weeks at [phone]. It is also a good idea to know your test results and keep a list of the medicines you take. You can expect your neck to feel stiff or sore after surgery. This should improve in the weeks after surgery. But it may take 4 to 6 months for you to get better completely. You may have trouble sitting or standing in one position for very long and may need pain medicine in the weeks after your surgery. It may take 4 to 6 weeks to get back to your usual activities, but it may depend on what kind of surgery you had. Your throat will feel sore and it may be difficult to swallow for the first 3 days after your surgery. As long as you can get liquids down without difficulty, this should slowly improve, otherwise call our office or seek medical attention if it becomes increasingly difficult to get anything down including liquids. Avoid hot liquids for first 3-5 days. Soothing foods/liquids such as jello, pudding, and luke warm soups are recommended until swallowing improves. Staying elevated will also help, it's advised you keep propped up at while sleeping to help reduce the swelling. You may use an ice pack directly on your incision or around it on the front of your neck, using a cloth to protect your skin; and a heating pad to the back of your neck as needed. Do not use over the counter anti-inflammatory medications (Ibuprofen, Motrin, Aleve, Advil, etc) Taking these meds after having a fusion can delay fusion rates, we recommend you avoid them for the first 3 [address] your surgery[address] Dr. Gutierrez may advise you to work with a physical therapist to strengthen the muscles around your neck and back - this will be discussed at your follow - up appointments. The pain or numbness you were having in your arms before surgery should get better or go away completely. This care sheet gives you a general idea about how long it will take for you to recover. But each person recovers at a different pace. Follow the steps below to get better as quickly as possible. How can you care for yourself at home? Activity ? Rest when you feel tired. Getting enough sleep will help you recover. ? Try to walk each day. Start by walking a little more than you did the day before. Bit by bit, increase the amount you walk. Walking boosts blood flow and helps prevent pneumonia and constipation. Walking may also decrease your muscle soreness after surgery. ? No lifting anything that is more that 5 pounds. This may include heavy grocery bags and milk containers, a heavy briefcase or backpack, cat litter or dog food bags, a child, or a vacuum catch basin cleaner. ? Avoid strenuous activities, such as bicycle riding, jogging, weightlifting, or aerobic exercise, until your doctor says it is okay. ? Do not drive until your follow-up visit after your surgery, or until your doctor says it isokay. ? Avoid taking long car trips for 2 to 4 weeks after surgery. Your neck may become tired and painful from sitting too long in one position. ? You will probably need to take 4 to 6 weeks off from work. It depends on the type of work you do and how you feel. ? You may have sex as soon as you feel able, but avoid positions that put stress on your neck or cause pain. Diet ? You can eat your normal diet. If your stomach is upset, try bland, low-fat foods like plain rice, broiled chicken, toast, and yogurt ? Drink plenty of fluids. If you have kidney, heart, or liver disease and have to limit fluids, talk with your doctor before you increase the amount of fluids you drink. ? You may notice that your bowel movements are not regular right after your surgery. This is common. Try to avoid constipation and straining with bowel movements. You may want to take a fiber supplement every day. If you have not had a bowel movement after a couple of days, ask your doctor about taking a mild laxative. Medicines ? Take pain medicines exactly as directed. 1. If Dr. Gutierrez gave you a prescription medicine for pain, take lt as prescribed. 2. Do not take two or more pain medicines at the same time unless the doctor told you to. Many pain medicines have acetaminophen, which is Tylenol. Too much acetaminophen {Tylenol) can be harmful. 3. If you think your pain pill is making you sick to your stomach: 4. Take your pills after meals (unless your doctor has told you not to). 5. Ask your Dr. for a different pain pill. Incisioncare ? Remove your dressing 48hours after your surgery. Ok to shower and get the incision wet. Do not overtly wash your incision. When done, pad dry, leave open to air thereafter. Avoid creams and ointments directly on your incision. ? Your sutures in the incision will dissolve and fall out on their own. ? Keep the area clean and dry. You may cover it with a gauze bandage if it weeps or rubs against clothing; if you choose to do this, change the dressing everyday. Other instructions ? Use a heating pad, hot water bottle, or gentle massage on your back to reduce stiffness. Avoid putting heat on your incision When should you call for help? ? Call 911 anytime you think you may need emergency care. For example, call if: ? You pass out (lose consciousness). ? You have sudden chest pain and shortness of breath, or you cough upblood. ? You cannot swallow. ? You have severe pain in your neck or back. ? Call your Dr. or seek immediate medical care if: ? You have pain that does not get better after you take pain pills. ? You have loose stitches, or your incision comes open. ? You have blood or fluid draining from the incision. ? You have signs of infection, such as: 1. Increased pain, swelling, warmth, or redness. 2. Red streaks leading from the site. 3. Pus draining from the site. 4. Swollen lymph nodes in your neck or armpits. 5. A fever. ? You have severe pain in your arms. ? You have new or increased weakness or numbness in your arms. ? Watch closely for any changes in your health, and be sure to contact your doctor if: ? You do not have a bowel movement after taking a laxative. Discharge Attestations Time Spent in Discharge Care*: less than 30 min Quality Metrics Clinical Quality Measures [ No reported AMI, CVA or VTE this stay] Coding Level of Care Code Acute Code for Chg Fwd
[2024-06-25 08:00] VITALS: BP 96/54; PULSE 94; RESP 15; TEMP 36.8; O2SAT 92
--- NOTE | 2024-06-25 09:15 | PC.NURSE ---
Hemovac discontinued per Dr. Gutierrez. One suture removed and drain removed intact. Pt tolerated well.
--- NOTE | 2024-06-25 10:46 | PC.NURSE ---
Discharge instructions provided to caregiver. NO questions or concerns voiced at this time. Pt to private vehicle via wheelchair with all belongings.
[2024-06-25 10:47] VITALS: BP 96/54; PULSE 94; RESP 15; TEMP 36.8; O2SAT 92
== END 2024-06-25 10:49 | disposition home or self-care (01) | DRG 473 ==
LOC: MEDSURG 16:46
PROVIDERS: Admitting Provider Orthopaedic Surgery; PCP Family Medicine; Visit Provider Orthopaedic Surgery
PROC: 0RB30ZZ Excision of Cervical Vertebral Disc, Open Approach (ICD-10-PCS; CPT 22551; principal; 2024-06-24 10:55)
DX: M47.12 Other spondylosis with myelopathy, cervical region (principal); I10 Essential (primary) hypertension; Z88.2 Allergy status to sulfonamides
CPT/HCPCS: 51702; 72040; 76000; 97110; 97161; C1713; C1763; C9359; J0131; J0690; J1100; J1885; J2405; J2704; J2710; J3010; J3490; J7030; J7120

== ENCOUNTER 2024-06-26 11:49 | Emergency (ER) | payer MEDICARE, MEDICAID, SELFPAY ==
[2024-06-26] VITALS (10 sets, daily range): BP systolic 100–146; BP diastolic 63–89; PULSE 86–116; RESP 15–22; TEMP 36.6; O2SAT 93–96; BMI 27.3
--- NOTE | 2024-06-26 12:46 | W.ED.GENADLT ---
HPI - General Adult General: Chief complaint: Airway/Esophagus Foreign Body Stated complaint: no appt, a lot of pain, vommiting, Time Seen by Provider: 06/26/24 12:21 History of Present Illness: Patient presents to the ER with 1 episode coffee-ground emesis today, lack of appetite difficulty swallowing and nausea vomiting. Patient states he had neck surgery which sounds like an anterior fusion by Dr. Gutierrez 3 days ago. Patient denies any shortness of breath chest pain abdominal pain difficulty breathing or any anticoagulant use. Patient is never had coffee-ground emesis before. Patient states he started to get weak because has not been able to keep anything down at all. Related Data Home Medications Medication Instructions Recorded Confirmed allopurinol 300 mg tablet 300 mg PO DAILY@11/03/20 06/26/24 chlorthalidone 25 mg tablet 12.5 mg PO DAILY@11/03/20 06/26/24 metoprolol succinate 25 mg 25 mg PO DAILY@11/03/20 06/26/24 tablet,extended release 24 hr rosuvastatin 20 mg tablet 20 mg PO BEDTIME 11/03/20 06/26/24 acetaminophen 500 mg tablet 500 - 1,000 mg PO .Q4-6H PRN Pain 03/30/21 06/26/24 bismuth subsalicylate 262 mg/15 mL 524 mg PO Q4H PRN Diarrhea 03/30/21 06/26/24 oral suspension (Pepto-Bismol) cholecalciferol (vitamin D3) 25 25 mcg PO DAILY@03/30/21 06/26/24 mcg (1,000 unit) tablet (Vitamin D3) omeprazole 20 mg capsule,delayed 20 mg PO DAILY@03/30/21 06/26/24 release cyanocobalamin (vitamin B-12) 1,000 mcg PO DAILY 07/09/23 06/26/24 1,000 mcg capsule lisinopril 40 mg tablet 40 mg PO DAILY 07/10/23 06/26/24 fluticasone furoate 100 1 inh inhalation DAILY 10/08/23 06/26/24 mcg/actuation blister powder for inhalation (Arnuity Ellipta) menthol 3.2 mg lozenges ([place]argo 3.2 mg mucous membrane Q4H PRN 10/08/23 06/26/24 Cough Drops) cough or throat irritation aspirin 81 mg tablet,delayed 81 mg PO QAM 05/08/24 06/26/24 release escitalopram oxalate 20 mg tablet 20 mg PO DAILY@07 06/23/24 06/26/24 (Lexapro) hydrocodone 5 mg-acetaminophen 325 1 - 2 tab PO .Q4-6H PRN Pain 06/26/24 06/26/24 mg tablet triamcinolone acetonide 0.1 % 1 applic topical BID PRN dry skin 06/26/24 06/26/24 topical cream or itching Previous Rx's Medication Instructions Recorded aripiprazole 2 mg tablet 2 mg PO DAILY #30 tabs 05/27/24 carbidopa 25 mg-levodopa 100 mg 1 tab PO TID #90 tabs 05/27/24 tablet divalproex 500 mg tablet,extended 500 mg PO DAILY #30 tabs 05/27/24 release 24 hr (Depakote ER) Bone Growth Stimulator #1 ea 06/22/24 ondansetron HCl 4 mg tablet 4 mg PO Q8H PRN nausea and 06/26/24 vomiting #14 tabs Allergies Allergy/AdvReac Type Severity Reaction Status Date / Time ibuprofen Allergy Unknown Verified 06/23/24 09:01 Sulfa (Sulfonamide Allergy Unknown Verified 06/23/24 09:01 Antibiotics) sulfamethoxazole Allergy Unknown Verified 06/23/24 09:01 [From Bactrim] trimethoprim [From Bactrim] Allergy Unknown Verified 06/23/24 09:01 Review of Systems General: Reports: 10 or more systems reviewed and unremarkable except in HPI and below PFSH ED PFSH: Medical History Psychiatric care HTN (hypertension) Surgical History History of cholecystectomy Social History Smoking and tobacco/nicotine status: never used tobacco/nicotine Physical Exam Const: COMMON NORMALS: no acute distress, average body habitus, patient oriented x3, no limitations, healthy appearing, alert and well nourished HENMT: COMMON NORMALS: normocephalic, atraumatic, hearing grossly normal bilaterally, external ears normal, Normal external nose present and moist oral mucous membranes HEAD & SCALP: normocephalic and atraumatic NOSE: Normal external nose present EXTERNAL EAR: Yes external ears normal Eye: COMMON NORMALS: Equal, round and reactive pupils present, EOMs intact bilaterally, conjunctivae normal and no scleral icterus CONJUNCTIVA: Yes conjunctivae normal PUPIL: Yes Equal, round and reactive pupils present Neck/C-Spine: COMMON NORMALS: no JVD OTHER: In c-collar Chest: COMMONS NORMALS: normal inspection of the chest and normal palpation of entire chest wall Resp: COMMON NORMALS: normal respiratory effort, No retractions, No use of accessory muscles and clear to auscultation bilaterally AUSCULTATION: clear to auscultation bilaterally Cardio: COMMON NORMALS: no JVD, regular rate, regular rhythm, S1 normal heart sound present, S2 normal heart sound present, No gallops present (Cardio), No clicks present (Cardio), No murmurs present (Cardio) and No rub (Cardio) RATE: regular rate RHYTHM: regular rhythm HEART SOUNDS: S1 normal heart sound present and S2 normal heart sound present GI: COMMON NORMALS: Normal to inspection, nondistended, normoactive bowel sounds present, Soft to palpation, non-tender, No hepatosplenomegaly present and no masses PALPATION: Yes Soft to palpation and Yes No hepatosplenomegaly present Neuro: COMMON NORMALS: patient oriented x3 SENSORIUM/ORIENTATION: Yes alert Course Vital Signs: Vital signs: Vital Signs Temperature 97.9 F 06/26/24 11:57 Pulse Rate 116 H 06/26/24 23:51 Respiratory Rate 16 06/26/24 23:51 Blood Pressure 146/84 06/26/24 23:51 Pulse Oximetry 93 06/26/24 23:51 Oxygen Delivery Me thod Room Air 06/26/24 22:55 [facility] - General Adult Medical Decision Making Discussed patient with Dr. Teresa but how he says he is not able to swallow anything and has not swallowed any pills without spitting and back up any liquids either. But patient does not produce any vomitus either. Lab work was discussed, Dr. Gutierrez said we might get a CT scan of his neck to see if anything anatomically is abnormal otherwise he will discharged back to his facility because yesterday he was eating a full breakfast when he was discharged. Medical Records I reviewed the patient's medical records. Lab Data I reviewed the patient's lab results. 06/26/24 12:48 06/26/24 12:[address] 06/26/24 19:50 IMPRESSION: Soft tissue swelling and air in prevertebral soft tissues are nonspecific in the setting of recent anterior cervical fusion. Additional details as above. Laboratory Results WBC 10.00 10^3/uL (3.29-11.43) 06/26/24 12:48 RBC 4.03 10^6/uL (3.85-5.65) 06/26/24 12:48 Hgb 13.20 g/dL (11.27-16.99) 06/26/24 12:48 Hct 40.8 % (37-53) 06/26/24 12:48 MCV 101.2 fl (82-101) H 06/26/24 12:48 MCH 32.8 pg (27-33) 06/26/24 12:48 MCHC 32.4 g/dL (30-55) 06/26/24 12:48 RDW 13.2 % (12.1-15.1) 06/26/24 12:48 Plt Count 131 10^3/cmm (157-399) L 06/26/24 12:48 MPV 12.3 fL (7.4-10.4) H 06/26/24 12:48 Neut % (Auto) 80.9 % 06/26/24 12:48 Lymph % (Auto) 8.5 % 06/26/24 12:48 [place] % (Auto) 8.8 % 06/26/24 12:48 Eos % (Auto) 1.1 % 06/26/24 12:48 Baso % (Auto) 0.4 % 06/26/24 12:48 Neut # (Auto) 8.09 10^3/uL (1.8-7.7) H 06/26/24 12:48 Lymph # (Auto) 0.9 10^3/uL (0.8-4.8) 06/26/24 12:48 [place] # (Auto) 0.9 10^3/uL (0.2-0.9) 06/26/24 12:48 Eos # (Auto) 0.1 10^3/uL (0.0-0.8) 06/26/24 12:48 Baso # (Auto) 0.0 10^3/uL (0.0-0.1) 06/26/24 12:48 Nucleated RBC % (auto) 0 % 06/26/24 12:48 Nucleated RBCs # 0.0 /100WBC 06/26/24 12:48 PT 13.90 SECONDS (12.1-14.9) 06/26/24 12:48 INR 1.04 (0.8-1.2) 06/26/24 12:48 Sodium 141 mmol/L (136-145) 06/26/24 12:48 Potassium 3.5 mmol/L (3.5-5.1) 06/26/24 12:48 Chloride 96 mmol/L (98-107) L 06/26/24 12:48 Carbon Dioxide 29 mmol/L (22-29) 06/26/24 12:48 Anion Gap 19.5 (5-19) H 06/26/24 12:48 BUN 16 mg/dL (8-23) 06/26/24 12:48 Creatinine 0.8 mg/dL (0.7-1.2) 06/26/24 12:48 GFR Calculation 97.0 mL/min (90-130) 06/26/24 12:48 Glucose 94 mg/dL (65-115) 06/26/24 12:48 Calculated Osmolality 293 mOsm/kg (285-295) 06/26/24 12:48 Calcium 8.7 mg/dL (8.5-10.5) 06/26/24 12:48 Total Bilirubin 0.6 mg/dL (0.15-1.2) 06/26/24 12:48 AST 33 U/L (0-40) 06/26/24 12:48 ALT 23 U/L (0-41) 06/26/24 12:48 Alkaline Phosphatase 110 U/L (40-130) 06/26/24 12:48 Total Protein 6.5 g/dL (6.6-8.7) L 06/26/24 12:48 Albumin 3.8 g/dL (3.5-5.2) 06/26/24 12:48 Globulin 2.7 g/dL (1.3-4.6) 06/26/24 12:48 All radiology interpretation(s) finalized by discharge Discharge Plan Discharge Patient Disposition: Home Clinical Impression: Dysphagia Qualifiers: Dysphagia type: unspecified Qualified Code(s): R13.10 - Dysphagia, unspecified Hematemesis Qualifiers: Nausea presence: unspecified Qualified Code(s): K92.0 - Hematemesis Condition: Stable Prescriptions: New ondansetron HCl 4 mg tablet 4 mg PO Q8H PRN (Reason: nausea and vomiting) Qty: 14 0RF No Action allopurinol 300 mg tablet 300 mg PO DAILY@07 metoprolol succinate 25 mg tablet extended release 24 hr 25 mg PO DAILY@07 rosuvastatin 20 mg tablet 20 mg PO BEDTIME chlorthalidone 25 mg tablet 12.5 mg PO DAILY@07 Arnuity Ellipta 100 mcg/actuation blister with device 1 inh inhalation DAILY Largo Cough Drops 3.2 mg lozenge 3.2 mg mucous membrane Q4H PRN (Reason: cough or throat irritation) aspirin 81 mg tablet,delayed release (DR/EC) 81 mg PO QAM Hold Instructions: Resume on 06/26/24. aripiprazole 2 mg tablet 2 mg PO DAILY Qty: 30 11RF divalproex [Depakote ER] 500 mg tablet extended release 24 hr 500 mg PO DAILY Qty: 30 5RF carbidopa-levodopa 25-100 mg tablet 1 tab PO TID Qty: 90 5RF cyanocobalamin (vitamin B-12) 1,000 mcg capsule 1,000 mcg PO DAILY (DME) Bone Growth Stimulator See Rx Instructions .Route .MEDSUPPLY Qty: 1 0RF Rx Instructions: As directed acetaminophen 500 mg Tablet 500 - 1,000 mg PO .Q4-6H PRN (Reason: Pain) bismuth subsalicylate [Pepto-Bismol] 262 mg/15 mL Suspension 524 mg PO Q4H PRN (Reason: Diarrhea) omeprazole 20 mg Capsule,Delayed Release(Dr/Ec) 20 mg PO DAILY@07 cholecalciferol (vitamin D3) [Vitamin D3] 25 mcg (1,000 unit) Tablet 25 mcg PO DAILY@07 escitalopram oxalate [Lexapro] 20 mg tablet 20 mg PO DAILY@07 lisinopril 40 mg tablet 40 mg PO DAILY triamcinolone acetonide 0.1 % cream 1 applic TOPICAL BID PRN (Reason: dry skin or itching) hydrocodone-acetaminophen 5-325 mg tablet 1 - 2 tab PO .Q4-6H PRN (Reason: Pain) Discharge Orders: Discharge ED (Routine); Ordered 06/26/24 Ordered By: Tom Gtz Referrals: Matthew Sanchez MD [Primary Care Provider] - 1 week Patient Instructions: Dysphagia, Hematemesis (ED) Activity Restrictions/Additional Instructions: Activity restrictions/additional instructions: Thank you for choosing [facility] for your healthcare needs today. Please realize that you were seen in the emergency department and that we are providing you with an emergency medical screening exam and this may not be a complete and all exclusive of all testing and/or medical workup we may need to determine your element or severity of your illness. It is very important that you follow-up as instructed with your primary care provider or specialist for the additional evaluation and to discuss your medical treatment plan. You may return to the emergency department should you have concerns or if your condition changes or worsens in any way. Coding Level of Care Code ED Cardroom Manager for Bekah Pollock
--- NOTE | 2024-06-26 12:53 | PC.PHAR ---
Pt is from [facility] [phone]-faxin med list 06/26/24 12:54pm
[2024-06-26 12:59] LABS: Basophils % 0.4 %; Eosinophils # 0.1 10^3/uL (0.0-0.8); Eosinophils % 1.1 %; Hematocrit 40.8 % (37-53); Lymphocytes # 0.9 10^3/uL (0.8-4.8); Lymphocytes % 8.5 %; Mean Corpuscular HGB Conc 32.4 g/dL (30-55); Mean Corpuscular Hemoglobin 32.8 pg (27-33); Mean Corpuscular Volume 101.2 fl (82-101); Mean Platelet Volume 12.3 fL (7.4-10.4); Monocytes # 0.9 10^3/uL (0.2-0.9); Monocytes % 8.8 %; Neutrophils # 8.09 10^3/uL (1.8-7.7); Neutrophils % 80.9 %; Nucleated Red Blood Cells % 0 %; Platelet Count 131 10^3/cmm (157-399); Red Blood Count 4.03 10^6/uL (3.85-5.65); Red Cell Distribution Width 13.2 % (12.1-15.1)
[2024-06-26 13:11] LABS: INR 1.04 (0.8-1.2)
[2024-06-26 13:16] LABS: Alanine Aminotransferase 23 U/L (0-41); Albumin Level 3.8 g/dL (3.5-5.2); Alkaline Phosphatase 110 U/L (40-130); Anion Gap 19.5 (5-19); Aspartate Amino Transferase 33 U/L (0-40); Blood Urea Nitrogen 16 mg/dL (8-23); Calcium 8.7 mg/dL (8.5-10.5); Carbon Dioxide 29 mmol/L (22-29); Chloride 96 mmol/L (98-107); Globulin 2.7 g/dL (1.3-4.6); Glucose 94 mg/dL (65-115); Osmolality Calculated 293 mOsm/kg (285-295); Potassium 3.5 mmol/L (3.5-5.1); Sodium 141 mmol/L (136-145); Total Bilirubin 0.6 mg/dL (0.15-1.2); Total Protein 6.5 g/dL (6.6-8.7)
--- NOTE | 2024-06-26 13:20 | PC.NURSE ---
PER PT AND CAREGIVER, LAST NIGHT PT THINKS THAT A PILL GOT HUNG IN HIS THROAT. PT CANNOT RECALL THE LAST TIME HE ATE OR DRANK AND DID NOT THROW UP.
[2024-06-26] MEDS: morphine 4 mg/mL SDV 1 mL 2 MG IVP (14:39)
--- NOTE | 2024-06-26 14:47 | PC.NURSE ---
PT THREW UP HIS PO MEDS. PILLS WERE ACCOUNTED FOR IN EMESIS BAG.
[2024-06-26] MEDS: ondansetron 2 mg/ML SDV 2 mL 4 MG IM (15:18)
[2024-06-26] MEDS: sodium chloride 0.9% 1,000 ML 999 ML IV (17:35)
[2024-06-26] MEDS: metoclopramide 5 mg/mL SDV 2 mL 10 MG IVP (17:35)
[2024-06-26] MEDS: lidocaine 2% viscous 15 ML, aluminum-mag hydrox-simethicon 30 ML, sucralfate oral liq 1 GM PO (19:07)
--- NOTE | 2024-06-26 19:50 | CTR_ITS ---
PROCEDURE INFORMATION: Exam: CT Neck Without Contrast Exam date and time: 06/26/2024 8:25 PM Age: 64 years old Clinical indication: Dysphagia / difficulty swallowing and other: Vomiting; Prior surgery; Surgery date: Post-operative (0-2 days); Patient HX: C/O dysphagia and vomiting everytime attempting to eat or drink post cervical fusion 06/24/2024. ; Additional info: Dysphagia post cervical fusion TECHNIQUE: Imaging protocol: Computed tomography of the neck without contrast. Radiation optimization: All CT scans at this facility use at least one of these dose optimization techniques: automated exposure control; mA and/or kV adjustment per patient size (includes targeted exams where dose is matched to clinical indication); or iterative reconstruction. COMPARISON: CT angio headneck* [id number] 01/23/2024 8:05 PM RADIATION DOSE METRICS: Total DLP (mGy-cm): 366.58 FINDINGS: Paranasal sinuses: Mild paranasal sinus mucosal thickening. Auditory system: Incidental marked bony narrowing of left external auditory canal. Salivary glands: Normal. Glands are normal in size. Pharynx: Unremarkable. No significant tonsillar enlargement. Prevertebral and retropharyngeal spaces: Prevertebral soft tissue swelling and air are nonspecific in the setting of recent anterior cervical fusion. Larynx: Asymmetric nodular thickening of right vocal cord is unchanged. Thyroid: Normal. No enlarged or calcified nodules. Trachea: Visualized trachea is unremarkable. Lungs: Unremarkable as visualized. Lymph nodes: Unremarkable. No lymphadenopathy. Bones/joints: Bulky bridging ossification along the anterior aspects of C1 and C2 noted. Anterior fusion hardware is in place from C3-C6. Intervertebral disc space bone grafts are suggested. Soft tissues: Soft tissue air and mild edema/swelling in right neck typical for recent surgery. CT/CT neck w con* [id number] IMPRESSION: Soft tissue swelling and air in prevertebral soft tissues are nonspecific in the setting of recent anterior cervical fusion. Additional details as above.
[2024-06-26] MEDS: iohexol 350 mg/mL 500 mL Btl (per mL) IV (20:27)
== END 2024-06-26 23:49 | disposition home or self-care (01) ==
PROVIDERS: Emergency Provider Emergency Medicine; PCP Family Medicine
DX: R13.10 Dysphagia, unspecified (principal); K92.0 Hematemesis; I10 Essential (primary) hypertension
CPT/HCPCS: 36415; 70491; 80053; 85025; 85610; 96372; 96374; 96375; 99285; J2270; J2405; J2765; J7030; Q0162

== ENCOUNTER 2024-06-27 13:34 | Emergency (ER) | payer MEDICARE, MEDICAID, SELFPAY ==
[2024-06-27 13:45] VITALS: BP 137/78; PULSE 111; RESP 15; TEMP 37.2; O2SAT 92; BMI 27.3
--- NOTE | 2024-06-27 13:52 | ECG_ITS ---
[facility] Test Date: 2024-06-27 Pat Name: Chris Guevara Department: Room: Gender: Male Inside Sales Executive: : 1960 Requested By: Jorge Hawthorne Order Number: [id number] Opal MD: Duran Calhoun M.D. Measurements Intervals Anderson Rate: 107 P: 5 NH: 140 QRS: -21 QRSD: 155 T: 104 QT: 363 QTc: 486 Interpretive Statements SINUS TACHYCARDIA LEFT BUNDLE BRANCH BLOCK [120+ ms QRS DURATION, 80+ ms Q/S IN V1/V2, 85+ ms R IN I/aVL/V5/V6] INTERPRETATION BASED ON A DEFAULT AGE OF 40 YEARS Compared to ECG 05/10/2024 23:32:14 Sinus bradycardia no longer present Electronically Signed On 06-29-2024 20:20:11 PHYSICAL FITNESS TEACHER by Duran Calhoun M.D. [email or web address]
[2024-06-27 15:31] VITALS: BP 132/88; PULSE 98; RESP 18; O2SAT 95
--- NOTE | 2024-06-27 15:53 | XRR_ITS ---
PROCEDURE INFORMATION: Exam: XR Chest Exam date and time: 06/27/2024 4:10 PM Age: 64 years old Clinical indication: Cough and shortness of breath; Additional info: SOA, cough TECHNIQUE: Imaging protocol: Radiologic exam of the chest. Views: 1 view. COMPARISON: CR XR chest 1V portable [id number] 02/15/2024 1:18 PM FINDINGS: Lungs: Similar linear scarring in the left lung base. No consolidation. Pleural spaces: Unremarkable. No pleural effusion. No pneumothorax. Heart/Mediastinum: Unremarkable. No cardiomegaly. Diaphragm: Mild elevation of the left hemidiaphragm. Bones/joints: Chronic deformity of the proximal right humerus. ACDF hardware noted in the lower cervical spine. No acute findings. XR/XR chest 1V [id number] IMPRESSION: No acute cardiopulmonary findings.
[2024-06-27 16:02] LABS: Basophils % 0.5 %; Eosinophils % 0.2 %; Hematocrit 42.7 % (37-53); Lymphocytes # 0.5 10^3/uL (0.8-4.8); Lymphocytes % 5.7 %; Mean Corpuscular Hemoglobin 33.3 pg (27-33); Mean Corpuscular Volume 100.9 fl (82-101); Mean Platelet Volume 12.8 fL (7.4-10.4); Monocytes # 0.8 10^3/uL (0.2-0.9); Monocytes % 9.4 %; Neutrophils # 7.13 10^3/uL (1.8-7.7); Nucleated Red Blood Cells % 0 %; Platelet Count 121 10^3/cmm (157-399); Red Blood Count 4.23 10^6/uL (3.85-5.65); Red Cell Distribution Width 13.2 % (12.1-15.1); White Blood Count 8.49 10^3/uL (3.29-11.43)
--- NOTE | 2024-06-27 16:02 | ED_ITS ---
HPI - SOB/Dyspnea 2 General: Chief Complaint: Shortness of Breath/Dyspnea Stated Complaint: weakness,Sob,swelling of right arm Time Seen by Provider: 06/27/24 14:57 Source: family Mode of arrival: ambulatory Limitations: physical limitation (In c-collar) History of Present Illness: HPI Narrative: Patient presents back to the emergency department today for evaluation treatment of continued complaints of difficulty swallowing status post anterior approach cervical fusion by Dr. Gutierrez. Patient is now approximately 4 days out from his procedure. Documents show that prior to discharge, patient was eating and drinking full meals without difficulty. Patient was seen in the emergency department yesterday where he received his evaluation including imaging and a consult back with Dr. Gutierrez. With his evaluation, he was deemed stable to discharge home and have follow-up in the clinic. However, the patient's comes back today stating that the patient cannot eat or drink anything and has not been taking any of his medications. She also states he is coughing up thick phlegm . When asked about fever she indicated he was running low-grade and, when I asked at what temperature, she admitted she had not checked. As I was not here last night, not exactly sure the situation but, from what I understand, there was some expectation of being admitted by the patient's family and or facility where he resides. is very upset that he was not admitted. They also state concerns of blisters which developed on the patient's right medial AC space after his lab work from yesterday. They state that he got the blisters from the IV but, appears more consistent with the boundary of what appears to be tape as there is diffuse erythema over the AC space and blisters developed within this redness. Patient refuses IV in the room. Related Data Home Medications Medication Instructions Recorded Confirmed allopurinol 300 mg tablet 300 mg PO DAILY@11/03/20 06/26/24 chlorthalidone 25 mg tablet 12.5 mg PO DAILY@11/03/20 06/26/24 metoprolol succinate 25 mg 25 mg PO DAILY@11/03/20 06/26/24 tablet,extended release 24 hr rosuvastatin 20 mg tablet 20 mg PO BEDTIME 11/03/20 06/26/24 acetaminophen 500 mg tablet 500 - 1,000 mg PO .Q4-6H PRN Pain 03/30/21 06/26/24 bismuth subsalicylate 262 mg/15 mL 524 mg PO Q4H PRN Diarrhea 03/30/21 06/26/24 oral suspension (Pepto-Bismol) cholecalciferol (vitamin D3) 25 25 mcg PO DAILY@03/30/21 06/26/24 mcg (1,000 unit) tablet (Vitamin D3) omeprazole 20 mg capsule,delayed 20 mg PO DAILY@03/30/21 06/26/24 release cyanocobalamin (vitamin B-12) 1,000 mcg PO DAILY 07/09/23 06/26/24 1,000 mcg capsule lisinopril 40 mg tablet 40 mg PO DAILY 07/10/23 06/26/24 fluticasone furoate 100 1 inh inhalation DAILY 10/08/23 06/26/24 mcg/actuation blister powder for inhalation (Arnuity Ellipta) menthol 3.2 mg lozenges (Ford 3.2 mg mucous membrane Q4H PRN 10/08/23 06/26/24 Cough Drops) cough or throat irritation aspirin 81 mg tablet,delayed 81 mg PO QAM 05/08/24 06/26/24 release escitalopram oxalate 20 mg tablet 20 mg PO DAILY@06/23/24 06/26/24 (Lexapro) hydrocodone 5 mg-acetaminophen 325 1 - 2 tab PO .Q4-6H PRN Pain 06/26/24 06/26/24 mg tablet triamcinolone acetonide 0.1 % 1 applic topical BID PRN dry skin 06/26/24 06/26/24 topical cream or itching Previous Rx's Medication Instructions Recorded aripiprazole 2 mg tablet 2 mg PO DAILY #30 tabs 05/27/24 carbidopa 25 mg-levodopa 100 mg 1 tab PO TID #90 tabs 05/27/24 tablet divalproex 500 mg tablet,extended 500 mg PO DAILY #30 tabs 05/27/24 release 24 hr (Depakote ER) Bone Growth Stimulator #1 ea 06/22/24 ondansetron HCl 4 mg tablet 4 mg PO Q8H PRN nausea and 06/26/24 vomiting #14 tabs Allergies Allergy/AdvReac Type Severity Reaction Status Date / Time ibuprofen Allergy Unknown Verified 06/23/24 09:01 Sulfa (Sulfonamide Allergy Unknown Verified 06/23/24 09:01 Antibiotics) sulfamethoxazole Allergy Unknown Verified 06/23/24 09:01 [From Bactrim] trimethoprim [From Bactrim] Allergy Unknown Verified 06/23/24 09:01 Review of Systems 2 General: Reports: 10 or more systems reviewed and unremarkable except in HPI and below PFSH ED 2 PFSH: Medical History Psychiatric care HTN (hypertension) Surgical History History of cholecystectomy Social History Smoking and tobacco/nicotine status: never used tobacco/nicotine Physical Exam 2 Const: COMMON NORMALS: no acute distress, patient oriented x3 and alert HENMT: COMMON NORMALS: normocephalic, atraumatic, hearing grossly normal bilaterally and moist oral mucous membranes HEAD & SCALP: normocephalic and atraumatic OTHER: Patient has generalized difficulty with speech as his jaw is held up and forward and immobilized by c-collar (mumbling) Eye: COMMON NORMALS: Equal, round and reactive pupils present, EOMs intact bilaterally and conjunctivae normal CONJUNCTIVA: Yes conjunctivae normal P UPIL: Yes Equal, round and reactive pupils present Neck/C-Spine: COMMON NORMALS: full ROM and no JVD Lymph: LYMPHATIC: no lymphadenopathy noted Resp: COMMON NORMALS: normal respiratory effort, No retractions, No use of accessory muscles and clear to auscultation bilaterally AUSCULTATION: clear to auscultation bilaterally Cardio: COMMON NORMALS: no JVD, regular rate and regular rhythm RATE: r egular rate RHYTHM: regular rhythm GI: OTHER: Abdomen soft, nondistended. No rigidity. No point tenderness. Active bowel sounds. Back/Pelvis: COMMON NORMALS: no thoracic nor lumbar tenderness and thoraco- lumbar ROM normal Extremity: COMMON NORMALS: normal to inspection, full ROM and capillary refill normal NARRATIVE EXTREMITY EXAM: No signs of any edema in the lower extremities. OTHER: Patient was able to sit up with bedside assist and rotate body to dangle legs over the edge of the bed. Patient then got onto his feet, pivoted, and sat down in his wheelchair with 1 person, elbow assist for guidance. Neuro: COMMON NORMALS: patient oriented x3 and no focal motor deficits S ENSORIUM/ORIENTATION: Yes alert Psych: COMMON NORMALS: mental status grossly normal, Normal thought process present, cooperative, normal affect and activity/motor behavior normal T HOUGHT PROCESS: Normal thought process present Skin: COMMON NORMALS: no rashes or lesions noted NARRATIVE SKIN EXAM: Unable to visualize anterior cervical wound due to bandaging in place. Patient does have several small blisters each approximately 1 cm around the medial border of a confluent erythema patch over the right AC space. Approximately the same size as a Tegaderm patch. Suspect tape sensitivity. GENERAL SKIN EXAM: no rashes or lesions noted Course 2 Vital Signs: Vital signs: Vital Signs Temperature 99.0 F 06/27/24 13:45 Pulse Rate 105 H 06/27/24 17:07 Respiratory Rate 16 06/27/24 17:07 Blood Pressure 114/82 06/27/24 17:07 Pulse Oximetry 92 06/27/24 17:07 Oxygen Delivery Me thod Room Air 06/27/24 13:45 MDM - SOB/Dyspnea Medical Decision Making Patient presents back to the emergency department today with continued complaints of difficulty swallowing and cough. Patient answers very little of his own history as the primarily does all the talking and question answering. There has been no change from yesterday according to family. They said that the patient was having difficulty eating and drinking because he will vomit but, in the room, asked for ice chips. indicated he needed IV fluids however, we reminded her that the patient refused an IV tonight. Patient reports shortness of breath is only when he is laid flat on his back. Patient's oxygen saturation is 95% on room air here in the ER. Patient does have blisters and redness to the right AC space which appears to be the same size as the Tegaderm. Patient most likely has sensitivity to Tegaderm as one would have sensitivity to tape. Nursing placed nonstick Telfa and wrapped with Coban for coverage. Patient was given approximately half a large cup of ice chips. On recheck, patient had eaten only ice and at that point, had not had any vomiting. Patient was given another full Of ice which he took without difficulty. In all, patient had 2 full cups of ice which he took without choking or vomiting. Patient's lab work today is unremarkable. He is COVID, flu, and RSV negative. Chest x-ray is also negative. Patient's oxygenation has remained solidly in the mid 90% on room air since arrival. I discussed the case with Dr. Gtz who evaluated this patient yesterday. As patient seems to actually be improving- tolerating fluids without issue at this time, we believe he is stable for discharge with continued recommendations as the same last night for follow-up with the surgeon. Discussed this with patient and the . is somewhat upset but, patient indicated his desire to go home. He also asked to be seated up in his wheelchair. He was able to ambulate from the bed and pivot into his wheelchair with 1 person, elbow assist. We discussed contacting the surgeons office first thing on Saturday morning. I asked if he had a follow-up appointment already scheduled but the was unsure. As patient is not vomiting, we encouraged continued ice chips or popsicles for fluid intake. He may also wish to try again with his medications. At this time, both myself and Dr. Gtz are comfortable with patient returning back home with the same discharge recommendations as last night. Differential Diagnosis Unlikely acute exacerbation of chronic obstructive airways disease, congestive heart failure, community acquired pneumonia or asthma with exacerbation Lab Data 06/27/24 15:19 06/27/24 15:19 Labs/Radiology: Radiology Impressions Chest X-Ray 06/27/24 15:53 IMPRESSION: No acute cardiopulmonary findings. Laboratory Results WBC 8.49 10^3/uL (3.29-11.43) 06/27/24 15:19 RBC 4.23 10^6/uL (3.85-5.65) 06/27/24 15:19 Hgb 14.10 g/dL (11.27-16.99) 06/27/24 15:19 Hct 42.7 % (37-53) 06/27/24 15:19 MCV 100.9 fl (82-101) 06/27/24 15:19 MCH 33.3 pg (27-33) H 06/27/24 15:19 MCHC 33.0 g/dL (30-55) 06/27/24 15:19 RDW 13.2 % (12.1-15.1) 06/27/24 15:19 Plt Count 121 10^3/cmm (157-399) L 06/27/24 15:19 MPV 12.8 fL (7.4-10.4) H 06/27/24 15:19 Neut % (Auto) 84.0 % 06/27/24 15:19 Lymph % (Auto) 5.7 % 06/27/24 15:19 [place] % (Auto) 9.4 % 06/27/24 15:19 Eos % (Auto) 0.2 % 06/27/24 15:19 Baso % (Auto) 0.5 % 06/27/24 15:19 Neut # (Auto) 7.13 10^3/uL (1.8-7.7) 06/27/24 15:19 Lymph # (Auto) 0.5 10^3/uL (0.8-4.8) L 06/27/24 15:19 [place] # (Auto) 0.8 10^3/uL (0.2-0.9) 06/27/24 15:19 Eos # (Auto) 0.0 10^3/uL (0.0-0.8) 06/27/24 15:19 Baso # (Auto) 0.0 10^3/uL (0.0-0.1) 06/27/24 15:19 Nucleated RBC % (auto) 0 % 06/27/24 15:19 Nucleated RBCs # 0.0 /100WBC 06/27/24 15:19 Sodium 142 mmol/L (136-145) 06/27/24 15:19 Potassium 3.4 mmol/L (3.5-5.1) L 06/27/24 15:19 Chloride 99 mmol/L (98-107) 06/27/24 15:19 Carbon Dioxide 26 mmol/L (22-29) 06/27/24 15:19 Anion Gap 20.4 (5-19) H 06/27/24 15:19 BUN 15 mg/dL (8-23) 06/27/24 15:19 Creatinine 0.8 mg/dL (0.7-1.2) 06/27/24 15:19 GFR Calculation 97.0 mL/min (90-130) 06/27/24 15:19 Glucose 104 mg/dL (65-115) 06/27/24 15:19 Calculated Osmolality 295 mOsm/kg (285-295) 06/27/24 15:19 Calcium 8.9 mg/dL (8.5-10.5) 06/27/24 15:19 Total Bilirubin 0.6 mg/dL (0.15-1.2) 06/27/24 15:19 AST 31 U/L (0-40) 06/27/24 15:19 ALT 31 U/L (0-41) 06/27/24 15:19 Alkaline Phosphatase 150 U/L (40-130) H 06/27/24 15:19 Total Protein 6.4 g/dL (6.6-8.7) L 06/27/24 15:19 Albumin 3.5 g/dL (3.5-5.2) 06/27/24 15:19 Globulin 2.9 g/dL (1.3-4.6) 06/27/24 15:19 Coronavirus (PCR) Negative (Negative) 06/27/24 15:57 Influenza A (PCR) Negative (Negative) 06/27/24 15:57 Influenza Type B (PCR) Negative (Negative) 06/27/24 15:57 RSV (PCR) Negative (Negative) 06/27/24 15:57 All radiology interpretation(s) finalized by discharge Discharge Plan Discharge Patient Disposition: Home Clinical Impression: Status post cervical spinal fusion, Vomiting Condition: Stable Prescriptions: No Action allopurinol 300 mg tablet 300 mg PO DAILY@07 metoprolol succinate 25 mg tablet extended release 24 hr 25 mg PO DAILY@07 rosuvastatin 20 mg tablet 20 mg PO BEDTIME chlorthalidone 25 mg tablet 12.5 mg PO DAILY@07 Arnuity Ellipta 100 mcg/actuation blister with device 1 inh inhalation DAILY Ford Cough Drops 3.2 mg lozenge 3.2 mg mucous membrane Q4H PRN (Reason: cough or throat irritation) aspirin 81 mg tablet,delayed release (DR/EC) 81 mg PO QAM Hold Instructions: Resume on 06/26/24. aripiprazole 2 mg tablet 2 mg PO DAILY Qty: 30 11RF divalproex [Depakote ER] 500 mg tablet extended release 24 hr 500 mg PO DAILY Qty: 30 5RF carbidopa-levodopa 25-100 mg tablet 1 tab PO TID Qty: 90 5RF cyanocobalamin (vitamin B-12) 1,000 mcg capsule 1,000 mcg PO DAILY (DME) Bone Growth Stimulator See Rx Instructions .Route .MEDSUPPLY Qty: 1 0RF Rx Instructions: As directed acetaminophen 500 mg Tablet 500 - 1,000 mg PO .Q4-6H PRN (Reason: Pain) bismuth subsalicylate [Pepto-Bismol] 262 mg/15 mL Suspension 524 mg PO Q4H PRN (Reason: Diarrhea) omeprazole 20 mg Capsule,Delayed Release(Dr/Ec) 20 mg PO DAILY@07 cholecalciferol (vitamin D3) [Vitamin D3] 25 mcg (1,000 unit) Tablet 25 mcg PO DAILY@07 escitalopram oxalate [Lexapro] 20 mg tablet 20 mg PO DAILY@07 lisinopril 40 mg tablet 40 mg PO DAILY triamcinolone acetonide 0.1 % cream 1 applic TOPICAL BID PRN (Reason: dry skin or itching) hydrocodone-acetaminophen 5-325 mg tablet 1 - 2 tab PO .Q4-6H PRN (Reason: Pain) ondansetron HCl 4 mg tablet 4 mg PO Q8H PRN (Reason: nausea and vomiting) Qty: 14 0RF Discharge Orders: Discharge ED (Routine); Ordered 06/27/24 Ordered By: Deysi Hassan Referrals: Matthew Sanchez MD [Primary Care Provider] - Discharge Diet: Advance as tolerated Discharge Activity: Limit activity as instructed Patient Instructions: Acute Nausea and Vomiting (ED) Activity Restrictions/Additional Instructions: Patient's lab work today is stable without noticeable change from yesterday. He shows no signs of an elevated white blood cell count concerning for an active infection. Blood counts are normal. Kidney function is within normal limits and he is COVID/flu/RSV negative. Chest x-ray shows no signs of any underlying infection such as pneumonia. He has tolerated 2 full cups of ice here in the emergency department without vomiting. Patient may wish to try ice chips, popsicles, shaved ice, etc. for fluid intake. Straight liquids may be difficult for him to swallow and tolerate with his neck immobilized the way it is. Please make sure patient has a scheduled follow-up appointment for his postop evaluation from the surgeon. However, we do recommend reaching out to your surgeon if needed. This can be first thing on Saturday or, his office should have an answering service after hours if needed. You just need to call his normal clinic number. If patient has profuse vomiting and is not producing urine every 8 hours, this could indicate dehydration. At that point, patient would need to return to the emergency department for IV hydration. Otherwise, we recommend small amounts of fluid intake frequently through the day. Coding Level of Care Code ED [employer] for [employer]ekah Pollock
[2024-06-27 16:16] LABS: Alanine Aminotransferase 31 U/L (0-41); Albumin Level 3.5 g/dL (3.5-5.2); Alkaline Phosphatase 150 U/L (40-130); Anion Gap 20.4 (5-19); Aspartate Amino Transferase 31 U/L (0-40); Blood Urea Nitrogen 15 mg/dL (8-23); Calcium 8.9 mg/dL (8.5-10.5); Carbon Dioxide 26 mmol/L (22-29); Chloride 99 mmol/L (98-107); Globulin 2.9 g/dL (1.3-4.6); Glucose 104 mg/dL (65-115); Osmolality Calculated 295 mOsm/kg (285-295); Potassium 3.4 mmol/L (3.5-5.1); Sodium 142 mmol/L (136-145); Total Bilirubin 0.6 mg/dL (0.15-1.2); Total Protein 6.4 g/dL (6.6-8.7)
[2024-06-27 16:52] LABS: Covid PCR NEGATIVE (Negative); Influenza A NEGATIVE (Negative); Influenza B NEGATIVE (Negative); Respiratory Syncytial Virus Ce NEGATIVE (Negative)
[2024-06-27 17:07] VITALS: BP 114/82; PULSE 105; RESP 16; O2SAT 92
[2024-06-27 18:39] VITALS: BP 124/69; PULSE 93; RESP 16; O2SAT 93
== END 2024-06-27 18:30 | disposition home or self-care (01) ==
PROVIDERS: Emergency Provider Physician Assistant; PCP Family Medicine
DX: R11.10 Vomiting, unspecified (principal); Z98.1 Arthrodesis status; Z11.52 Encounter for screening for COVID-19; I10 Essential (primary) hypertension
CPT/HCPCS: 0241U; 71045; 80053; 85025; 93005; 99285

== ENCOUNTER 2024-08-06 23:00 | Emergency (ER) | payer MEDICARE, MEDICAID, SELFPAY ==
[2024-08-06 23:01] VITALS: BP 108/58; PULSE 90; RESP 18; TEMP 36.6; O2SAT 99; BMI 23.5
--- NOTE | 2024-08-06 23:11 | XRR_ITS ---
PROCEDURE INFORMATION: Exam: XR Chest Exam date and time: 08/06/2024 11:17 PM Age: 64 years old Clinical indication: Pain; Chest pressure; Additional info: Cough, fevers TECHNIQUE: Imaging protocol: Radiologic exam of the chest. Views: 1 view. COMPARISON: CR (CHEST, ) 06/27/2024 4:10 PM FINDINGS: Lungs: Bibasilar lung opacities worse on the right, most suggestive of atelectasis. Pneumonia is possible. Pleural spaces: Unremarkable. No pleural effusion. No pneumothorax. Heart/Mediastinum: Unremarkable. No cardiomegaly. Bones/joints: Severe degenerative/posttraumatic changes of the right proximal humerus. XR/XR chest 1V portable [id number] IMPRESSION: Bilateral lower lung opacities, worse on the right, most suggestive of atelectasis although right lower lobe pneumonia is possible.
--- NOTE | 2024-08-06 23:11 | W.ED.GENADLT ---
HPI - General Adult General: Chief complaint: Fever Stated complaint: HTN Time Seen by Provider: 08/06/24 23:04 Source: patient and EMS Mode of arrival: EMS Limitations: no limitations History of Present Illness: Patient is a nice 64-year-old male presents to ED today via EMS from his home at [facility] for evaluation of fever and low blood pressure. Patient arrives to the ED completely asymptomatic. He states fever and low blood pressure were found incidentally as the facility routinely checks vitals. EMS states they were told by [facility] that several resident's have been sick with similar symptoms. EMS states blood pressures for them were over 100 systolic. He arrives afebrile here. During ROS patient does report a mild cough and states he has one episode of vomiting this morning. Denies abdominal pain or diarrhea. Severity: mild Relieving factors: none Exacerbating factors: none Associated symptoms: Reports vomiting (x 1 this AM); Deny chest pain, dyspnea, headache(s), malaise, nausea, rash or syncope Treatments prior to arrival: none Related Data Home Medications Medication Instructions Recorded Confirmed allopurinol 300 mg tablet 300 mg PO DAILY@11/03/20 07/28/24 chlorthalidone 25 mg tablet 12.5 mg PO DAILY@11/03/20 07/28/24 metoprolol succinate 25 mg 25 mg PO DAILY@11/03/20 07/28/24 tablet,extended release 24 hr rosuvastatin 20 mg tablet 20 mg PO BEDTIME 11/03/20 07/28/24 acetaminophen 500 mg tablet 500 - 1,000 mg PO .Q4-6H PRN Pain 03/30/21 07/28/24 bismuth subsalicylate 262 mg/15 mL 524 mg PO Q4H PRN Diarrhea 03/30/21 07/28/24 oral suspension (Pepto-Bismol) cholecalciferol (vitamin D3) 25 25 mcg PO DAILY@03/30/21 07/28/24 mcg (1,000 unit) tablet (Vitamin D3) omeprazole 20 mg capsule,delayed 20 mg PO DAILY@03/30/21 07/28/24 release cyanocobalamin (vitamin B-12) 1,000 mcg PO DAILY 07/09/23 07/28/24 1,000 mcg capsule lisinopril 40 mg tablet 40 mg PO DAILY 07/10/23 07/28/24 fluticasone furoate 100 1 inh inhalation DAILY 10/08/23 07/28/24 mcg/actuation blister powder for inhalation (Arnuity Ellipta) menthol 3.2 mg lozenges ([place] 3.2 mg mucous membrane Q4H PRN 10/08/23 07/28/24 Cough Drops) cough or throat irritation aspirin 81 mg tablet,delayed 81 mg PO QAM 05/08/24 07/28/24 release escitalopram oxalate 20 mg tablet 20 mg PO DAILY@07 06/23/24 07/28/24 (Lexapro) hydrocodone 5 mg-acetaminophen 325 1 - 2 tab PO .Q4-6H PRN Pain 06/26/24 07/28/24 mg tablet triamcinolone acetonide 0.1 % 1 applic topical BID PRN dry skin 06/26/24 07/28/24 topical cream or itching Previous Rx's Medication Instructions Recorded aripiprazole 2 mg tablet 2 mg PO DAILY #30 tabs 05/27/24 carbidopa 25 mg-levodopa 100 mg 1 tab PO TID #90 tabs 05/27/24 tablet divalproex 500 mg tablet,extended 500 mg PO DAILY #30 tabs 05/27/24 release 24 hr (Depakote ER) Bone Growth Stimulator #1 ea 06/22/24 ondansetron HCl 4 mg tablet 4 mg PO Q8H PRN nausea and 06/26/24 vomiting #14 tabs Allergies Allergy/AdvReac Type Severity Reaction Status Date / Time ibuprofen Allergy Unknown Verified 07/28/24 15:17 Sulfa (Sulfonamide Allergy Unknown Verified 07/28/24 15:17 Antibiotics) sulfamethoxazole Allergy Unknown Verified 07/28/24 15:17 [From Bactrim] trimethoprim [From Bactrim] Allergy Unknown Verified 07/28/24 15:17 Review of Systems Const: Reports: fever(s); Denies: chills, body aches, fatigue or malaise Eyes: Denies: change in vision or blurry vision ENMT: Denies: throat pain, odynophagia, ear or mastoid pain, nasal discharge or nasal congestion Card: Denies: chest pain, edema, swelling of feet/ankles, lightheadedness, syncope or pre-syncope Resp: Reports: non-productive cough and chest congestion; Denies: dyspnea, wheezing or hemoptysis GI: Reports: vomiting (x 1 this AM); Denies: abdominal pain, nausea, diarrhea or change in bowel habits : Denies: flank pain, difficulty urinating, dysuria, urinary frequency, urinary urgency or urinary hesitancy Musc: Denies: neck pain, back pain, extremity pain, extremity swelling, joint pain or joint swelling Skin/Breast: Denies: rash Neuro: Denies: headache(s) or dizziness PFSH ED PFSH: Medical History Psychiatric care HTN (hypertension) Surgical History History of cholecystectomy Social History Smoking and tobacco/nicotine status: never used tobacco/nicotine Physical Exam Const: COMMON NORMALS: no acute distress, average body habitus, patient oriented x3, no limitations, healthy appearing, alert and well nourished GENERAL APPEARANCE: cooperative HENMT: COMMON NORMALS: normocephalic and atraumatic HEAD & SCALP: normal to inspection, normocephalic and atraumatic Eye: COMMON NORMALS: no scleral icterus Neck/C-Spine: COMMON NORMALS: no lymphadenopathy, supple and no meningeal signs GENERAL: No anterior neck swelling and No submandibular swelling OTHER: wearing cervical collar-surgery by Dr. Gutierrez over a month ago; anterior approach surgical incision appears clean and well healing; he has not complaints of neck pain Chest: COMMONS NORMALS: normal inspection of the chest Resp: COMMON NORMALS: normal respiratory effort and clear to auscultation bilaterally AUSCULTATION: clear to auscultation bilaterally Cardio: COMMON NORMALS: regular rate and regular rhythm RATE: regular rate RHYTHM: regular rhythm GI: COMMON NORMALS: Normal to inspection, nondistended, normoactive bowel sounds present, Soft to palpation, non-tender, No hepatosplenomegaly present and no masses PALPATION: Yes Soft to palpation and Yes No hepatosplenomegaly present : COMMON NORMALS: Yes no CVA tenderness BLADDER/KIDNEY EXAM: Yes no CVA tenderness Back/Pelvis: COMMON NORMALS: no CVA tenderness and thoracic and lumbar spine normal to inspection Extremity: COMMON NORMALS: normal to inspection, capillary refill normal, no clubbing, cyanosis or edema, no calf tenderness and no pedal edema GENERAL: Yes normal exam except as noted Neuro: COMMON NORMALS: patient oriented x3, moves all extremities, no focal motor deficits and no sensory deficits noted SENSORIUM/ORIENTATION: Yes alert MENINGEAL SIGNS: Yes no meningeal signs Skin: COMMON NORMALS: no rashes or lesions noted GENERAL SKIN EXAM: no rashes or lesions noted Course Vital Signs: Vital signs: Vital Signs Temperature 97.9 F 08/06/24 23:01 Pulse Rate 89 08/07/24 00:38 Respiratory Rate 18 08/06/24 23:01 Blood Pressure 102/60 08/07/24 00:38 Pulse Oximetry 93 08/07/24 00:38 [facility] - General Adult Medical Decision Making Patient here has no real physical complaints apart from a mild cough. He was reported to have fevers and low blood pressure at [facility] incidentally with routine vital checks. Several of the other residents have been sick. Blood pressures here have been 100s/60-70s. Looking at previous vitals, this is a pretty normal blood pressure for him. He is not lightheaded or dizzy. He has no respiratory distress. He has been afebrile throughout his stay today. He was positive for RSV. CXR showing bilateral atelectasis. They did comment on RLL pneumonia as possible-most likely viral given his known RSV. He is satting normally on room air. Blood work overall is unremarkable. At this time, there is no indication for hospitalization. He can return home with return precautions. He was given IV fluids and solu-medrol here. Medical Records I reviewed the patient's medical records. Lab Data I reviewed the patient's lab results. 08/06/24 22:45 08/06/24 22:45 Radiology Impressions Chest X-Ray 08/06/24 23:11 IMPRESSION: Bilateral lower lung opacities, worse on the right, most suggestive of atelectasis although right lower lobe pneumonia is possible. Laboratory Results WBC 12.46 10^3/uL (3.29-11.43) H 08/06/24 22:45 RBC 3.74 10^6/uL (3.85-5.65) L 08/06/24 22:45 Hgb 11.90 g/dL (11.27-16.99) 08/06/24 22:45 Hct 37.6 % (37-53) 08/06/24 22:45 MCV 100.5 fl (82-101) 08/06/24 22:45 MCH 31.8 pg (27-33) 08/06/24 22:45 MCHC 31.6 g/dL (30-55) 08/06/24 22:45 RDW 13.2 % (12.1-15.1) 08/06/24 22:45 Plt Count 160 10^3/cmm (157-399) 08/06/24 22:45 MPV 12.4 fL (7.4-10.4) H 08/06/24 22:45 Neut % (Auto) 81.6 % 08/06/24 22:45 Lymph % (Auto) 9.7 % 08/06/24:45 Burke % (Auto) 7.8 % 08/06/24 22:45 Eos % (Auto) 0.2 % 08/06/24 22:45 Baso % (Auto) 0.2 % 08/06/24 22:45 Neut # (Auto) 10.16 10^3/uL (1.8-7.7) H 08/06/24 22:45 Lymph # (Auto) 1.2 10^3/uL (0.8-4.8) 08/06/24 22:45 Burke # (Auto) 1.0 10^3/uL (0.2-0.9) H 08/06/24 22:45 Eos # (Auto) 0.0 10^3/uL (0.0-0.8) 08/06/24 22:45 Baso # (Auto) 0.0 10^3/uL (0.0-0.1) 08/06/24:45 Nucleated RBC % (auto) 0 % 08/06/24:45 Nucleated RBCs # 0.0 /100WBC 08/06/24 22:45 Sodium 138 mmol/L (136-145) 08/06/24 22:45 Potassium 3.4 mmol/L (3.5-5.1) L 08/06/24:45 Chloride 96 mmol/L (98-107) L 08/06/24 22:45 Carbon Dioxide 30 mmol/L (22-29) H 08/06/24 22:45 Anion Gap 15.4 (5-19) 08/06/24 22:45 BUN 19 mg/dL (8-23) 08/06/24 22:45 Creatinine 1.1 mg/dL (0.7-1.2) 08/06/24 22:45 GFR Calculation 67.2 mL/min (90-130) L 08/06/24 22:45 Glucose 96 mg/dL (65-115) 08/06/24 22:45 Calculated Osmolality 288 mOsm/kg (285-295) 08/06/24 22:45 Calcium 8.9 mg/dL (8.5-10.5) 08/06/24 22:45 Total Bilirubin 0.6 mg/dL (0.15-1.2) 08/06/24 22:45 AST 62 U/L (0-40) H 08/06/24 22:45 ALT 27 U/L (0-41) 08/06/24 22:45 Alkaline Phosphatase 170 U/L (40-130) H 08/06/24 22:45 Total Protein 6.4 g/dL (6.6-8.7) L 08/06/24 22:45 Albumin 3.6 g/dL (3.5-5.2) 08/06/24 22:45 Globulin 2.8 g/dL (1.3-4.6) 08/06/24 22:45 Amorphous Sediment Not Reportable 08/07/24 00:35 Coronavirus (PCR) Negative (Negative) 08/06/24 23:12 Influenza A (PCR) Negative (Negative) 08/06/24 23:12 Influenza Type B (PCR) Negative (Negative) 08/06/24 23:12 RSV (PCR) Positive (Negative) A 08/06/24 23:12 All radiology interpretation(s) finalized by discharge Discharge Plan Discharge Patient Disposition: Home Clinical Impression: RSV infection Qualifiers: RSV infection type: unspecified Qualified Code(s): B33.8 - Other specified viral diseases Condition: Stable Prescriptions: No Action allopurinol 300 mg tablet 300 mg PO DAILY@07 metoprolol succinate 25 mg tablet extended release 24 hr 25 mg PO DAILY@07 rosuvastatin 20 mg tablet 20 mg PO BEDTIME chlorthalidone 25 mg tablet 12.5 mg PO DAILY@07 Arnuity Ellipta 100 mcg/actuation blister with device 1 inh inhalation DAILY [place] Cough Drops 3.2 mg lozenge 3.2 mg mucous membrane Q4H PRN (Reason: cough or throat irritation) aspirin 81 mg tablet,delayed release (DR/EC) 81 mg PO QAM Hold Instructions: Resume on 06/26/24. aripiprazole 2 mg tablet 2 mg PO DAILY Qty: 30 11RF divalproex [Depakote ER] 500 mg tablet extended release 24 hr 500 mg PO DAILY Qty: 30 5RF carbidopa-levodopa 25-100 mg tablet 1 tab PO TID Qty: 90 5RF cyanocobalamin (vitamin B-12) 1,000 mcg capsule 1,000 mcg PO DAILY (DME) Bone Growth Stimulator See Rx Instructions .Route .MEDSUPPLY Qty: 1 0RF Rx Instructions: As directed acetaminophen 500 mg Tablet 500 - 1,000 mg PO .Q4-6H PRN (Reason: Pain) bismuth subsalicylate [Pepto-Bismol] 262 mg/15 mL Suspension 524 mg PO Q4H PRN (Reason: Diarrhea) omeprazole 20 mg Capsule,Delayed Release(Dr/Ec) 20 mg PO DAILY@07 cholecalciferol (vitamin D3) [Vitamin D3] 25 mcg (1,000 unit) Tablet 25 mcg PO DAILY@07 escitalopram oxalate [Lexapro] 20 mg tablet 20 mg PO DAILY@07 lisinopril 40 mg tablet 40 mg PO DAILY triamcinolone acetonide 0.1 % cream 1 applic TOPICAL BID PRN (Reason: dry skin or itching) hydrocodone-acetaminophen 5-325 mg tablet 1 - 2 tab PO .Q4-6H PRN (Reason: Pain) ondansetron HCl 4 mg tablet 4 mg PO Q8H PRN (Reason: nausea and vomiting) Qty: 14 0RF Discharge Orders: Discharge ED (Routine); Ordered 08/07/24 Ordered By: Renate Martinez Referrals: Matthew Sanchez MD [Primary Care Provider] - Activity Restrictions/Additional Instructions: Patient tested positive for RSV/respiratory syncytial virus. He is not having any difficulty or labored breathing. He is satting normally on room air. At this time treatment would be conservative. He needs to avoid other individuals to help contain the spread in addition to mask wearing. He may use Tylenol/and/or Ibuprofen as needed for any fevers or body aches. You may follow-up with his primary care provider early next week if symptoms or not improving. You may return to the emergency department at anytime for significant shortness of breath or difficulty breathing, severe chest pain, worsening fevers, or any other concerns you may have. Coding Level of Care Code ED Taker Away for Bekah Pollock
[2024-08-06 23:20] LABS: Basophils % 0.2 %; Eosinophils % 0.2 %; Hematocrit 37.6 % (37-53); Lymphocytes # 1.2 10^3/uL (0.8-4.8); Lymphocytes % 9.7 %; Mean Corpuscular HGB Conc 31.6 g/dL (30-55); Mean Corpuscular Hemoglobin 31.8 pg (27-33); Mean Corpuscular Volume 100.5 fl (82-101); Mean Platelet Volume 12.4 fL (7.4-10.4); Monocytes % 7.8 %; Neutrophils # 10.16 10^3/uL (1.8-7.7); Neutrophils % 81.6 %; Nucleated Red Blood Cells % 0 %; Platelet Count 160 10^3/cmm (157-399); Red Blood Count 3.74 10^6/uL (3.85-5.65); Red Cell Distribution Width 13.2 % (12.1-15.1); White Blood Count 12.46 10^3/uL (3.29-11.43)
[2024-08-06 23:48] LABS: Alanine Aminotransferase 27 U/L (0-41); Albumin Level 3.6 g/dL (3.5-5.2); Alkaline Phosphatase 170 U/L (40-130); Anion Gap 15.4 (5-19); Aspartate Amino Transferase 62 U/L (0-40); Blood Urea Nitrogen 19 mg/dL (8-23); Calcium 8.9 mg/dL (8.5-10.5); Carbon Dioxide 30 mmol/L (22-29); Chloride 96 mmol/L (98-107); Creatinine Clr Calc Pharmacy 65.4777; Globulin 2.8 g/dL (1.3-4.6); Glomerular Filtration Rate 67.2 mL/min (90-130); Glucose 96 mg/dL (65-115); Osmolality Calculated 288 mOsm/kg (285-295); Potassium 3.4 mmol/L (3.5-5.1); Sodium 138 mmol/L (136-145); Total Bilirubin 0.6 mg/dL (0.15-1.2); Total Protein 6.4 g/dL (6.6-8.7)
[2024-08-06] MEDS: sodium chloride 0.9% 1,000 ML 999 ML IV (23:48)
[2024-08-07 00:17] VITALS: BP 96/46; PULSE 95; O2SAT 93
[2024-08-07 00:18] LABS: Covid PCR NEGATIVE (Negative); Influenza A NEGATIVE (Negative); Influenza B NEGATIVE (Negative)
[2024-08-07 00:22] LABS: Respiratory Syncytial Virus Ce POSITIVE (Negative)
[2024-08-07] MEDS: methylPREDNISolone sod succ 125 mg/2 mL INJ IVP (00:32)
[2024-08-07 00:38] VITALS: BP 102/60; PULSE 89; O2SAT 93
[2024-08-07 00:42] LABS: Bilirubin Urine Negative (Negative); Blood Urine Negative (Negative); Glucose Urine UA Negative (Normal); Ketones Urine 1+ (Negative); Leukocyte Esterase Urine Trace (Negative); Nitrate Urine Negative (Negative); Protein Urine 1+ (Negative); Specific Gravity, Urine 1.024 (1.005-1.030); Urine Appearance Clear (CLEAR); Urine Color Dark Yellow (Yellow)
[2024-08-07 00:47] LABS: Add Urine Microscopic? YES; Bacteria Urine None Seen /hpf; Hyaline Casts Urine 7.85 /lpf; RBC Urine 0-2 /hpf (0-2); Squamous Epithelial Cell Urine 0-5 /hpf (0-5); WBC Urine 0-5 /hpf (0-5)
[2024-08-07 01:07] LABS: UA Slide Review UA Slide Review Perf
[2024-08-07 01:33] VITALS: BP 93/53; PULSE 89; RESP 16; O2SAT 90
== END 2024-08-07 01:42 | disposition home or self-care (01) ==
PROVIDERS: Emergency Provider Physician Assistant; PCP Family Medicine
DX: B33.8 Other specified viral diseases (principal); Z11.52 Encounter for screening for COVID-19; I10 Essential (primary) hypertension
CPT/HCPCS: 71045; 80053; 81001; 85025; 87637; 96374; 99284; J2919; J7030

== ENCOUNTER 2024-08-15 20:11 | Emergency (ER) | payer MEDICARE, MEDICAID, SELFPAY ==
[2024-08-15 20:18] VITALS: BP 98/63; PULSE 78; RESP 16; TEMP 36.6; O2SAT 93; BMI 27.3
--- NOTE | 2024-08-15 20:23 | ECG_ITS ---
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
[2024-08-15 21:52] LABS: Basophils % 0.6 %; Eosinophils # 0.2 10^3/uL (0.0-0.8); Eosinophils % 2.3 %; Hematocrit 39.8 % (37-53); Lymphocytes # 1.3 10^3/uL (0.8-4.8); Lymphocytes % 20.2 %; Mean Corpuscular HGB Conc 30.9 g/dL (30-55); Mean Corpuscular Hemoglobin 32.5 pg (27-33); Mean Corpuscular Volume 105.3 fl (82-101); Mean Platelet Volume 11.5 fL (7.4-10.4); Monocytes # 0.5 10^3/uL (0.2-0.9); Monocytes % 8.1 %; Neutrophils # 4.36 10^3/uL (1.8-7.7); Neutrophils % 68.3 %; Nucleated Red Blood Cells % 0 %; Platelet Count 231 10^3/cmm (157-399); Red Blood Count 3.78 10^6/uL (3.85-5.65); Red Cell Distribution Width 12.7 % (12.1-15.1); White Blood Count 6.39 10^3/uL (3.29-11.43)
[2024-08-15 22:14] LABS: Anion Gap 15.8 (5-19); Blood Urea Nitrogen 19 mg/dL (8-23); Calcium 8.8 mg/dL (8.5-10.5); Carbon Dioxide 30 mmol/L (22-29); Chloride 101 mmol/L (98-107); Glucose 96 mg/dL (65-115); Osmolality Calculated 298 mOsm/kg (285-295); Potassium 3.8 mmol/L (3.5-5.1); Sodium 143 mmol/L (136-145)
== END 2024-08-16 01:41 | disposition left against medical advice (07) ==
LOC: ER 20:22
PROVIDERS: Emergency Medicine; Emergency Provider Family Medicine; PCP Family Medicine
DX: Z53.21 Procedure and treatment not carried out due to patient leaving prior to being seen by health care provider (principal)
CPT/HCPCS: 36415; 80048; 85025; 93005

== ENCOUNTER → 2024-09-17 13:42 | Outpatient (BNVA) | payer MEDICARE, MEDICAID, SELFPAY | PROVIDERS: PCP Family Medicine; Visit Provider Orthopaedic Surgery | DX: M54.2 Cervicalgia (principal); M48.02 Spinal stenosis, cervical region | CPT/HCPCS: 72040; 99024 ==

== ENCOUNTER → 2024-09-29 08:44 | Outpatient (BNVA) | payer MEDICARE, MEDICAID, SELFPAY | PROVIDERS: PCP Family Medicine; Visit Provider Orthopaedic Surgery | DX: M54.2 Cervicalgia (principal); M25.559 Pain in unspecified hip; M54.9 Dorsalgia, unspecified | CPT/HCPCS: 72040; 72110; 73523; 99024 ==

== ENCOUNTER → 2024-11-03 11:56 | Outpatient (BNVA) | payer MEDICARE, MEDICAID, SELFPAY | PROVIDERS: PCP Family Medicine; Visit Provider Specialist | DX: G20.A1 Parkinson's disease without dyskinesia, without mention of fluctuations (principal); R29.90 Unspecified symptoms and signs involving the nervous system; R40.4 Transient alteration of awareness; F89 Unspecified disorder of psychological development; I44.7 Left bundle-branch block, unspecified; M47.12 Other spondylosis with myelopathy, cervical region; R03.0 Elevated blood-pressure reading, without diagnosis of hypertension | CPT/HCPCS: 99214 ==

== ENCOUNTER 2024-11-25 15:44 | Inpatient (IN) | payer MEDICARE, MEDICAID, SELFPAY ==
[2024-11-25 15:48] VITALS: BP 102/59; PULSE 104; RESP 18; TEMP 38.6; O2SAT 96
--- NOTE | 2024-11-25 15:56 | XRR_ITS ---
PROCEDURE INFORMATION: Exam: XR Chest Exam date and time: 11/25/2024 4:00 PM Age: 64 years old Clinical indication: Cough; Additional info: Possible sepsis TECHNIQUE: Imaging protocol: Radiologic exam of the chest. Views: 1 view. COMPARISON: CR XR chest 1V portable [id number] 08/06/2024 11:17 PM FINDINGS: Lungs: Unremarkable. No consolidation. Pleural spaces: Unremarkable. No pleural effusion. No pneumothorax. Heart/Mediastinum: Unremarkable. No cardiomegaly. Bones/joints: ACDF hardware noted in the cervical spine. 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 No acute findings. XR/XR chest 1V portable [id number] IMPRESSION: No acute findings.
--- NOTE | 2024-11-25 16:12 | CTR_ITS ---
PROCEDURE INFORMATION: Exam: CT Chest With Contrast; Diagnostic Exam date and time: 11/25/2024 6:06 PM Age: 64 years old Clinical indication: Vomiting and other: Sepsis TECHNIQUE: Imaging protocol: Diagnostic computed tomography of the chest with contrast. Radiation optimization: All CT scans at this facility use at least one of these dose optimization techniques: automated exposure control; mA and/or kV adjustment per patient size (includes targeted exams where dose is matched to clinical indication); or iterative reconstruction. Contrast material: OMNIPAQUE 350; Contrast volume: 165 ml; Contrast route: INTRAVENOUS (IV); COMPARISON: CR XR chest 1V portable [id number] 11/25/2024 4:00 PM RADIATION DOSE METRICS: Total DLP (mGy-cm): 1049.88 FINDINGS: Thyroid: 1.4 cm left thyroid nodule with areas of peripheral calcification. 1.0 cm right thyroid nodule. Lungs: Mild bibasilar atelectasis. No focal consolidation or generalized interstitial process. Pleural spaces: Unremarkable. No pneumothorax. No pleural effusion. Heart: Heart is upper normal in size. No pericardial effusion. Coronary arteries: Scattered coronary artery calcifications. Lymph nodes: Unremarkable. No enlarged lymph nodes. Vasculature: Mild atherosclerotic aortic calcifications. Tortuous thoracic aorta. No thoracic aortic aneurysm. Diaphragm: Small sliding-type hiatal hernia. Bones/joints: Severe degenerative changes of the right glenohumeral joint. Multilevel flowing anterior osteophytes compatible with diffuse idiopathic skeletal hyperostosis (DISH). ACDF hardware partially imaged. Soft tissues: Unremarkable. COMMENTS: Consistent with the [place] [employer]'s Incidental Findings Committee white paper (J Am Barby Radiol 2015): In patients aged 35 years and older with an incidental thyroid nodule equal to or greater than 1.[address], MRI or extrathyroidal US, further evaluation with dedicated thyroid US is recommended for patients with normal life expectancy and without comorbidities. For smaller nodules without suspicious features, no further evaluation or follow up is recommended. PROCEDURE INFORMATION: Exam: CT Abdomen And Pelvis With Contrast Exam date and time: 11/25/2024 6:06 PM Age: 64 years old Clinical indication: Vomiting and other: Sepsis TECHNIQUE: Imaging protocol: Computed tomography of the abdomen and pelvis with contrast. Radiation optimization: All CT scans at this facility use at least one of these dose optimization techniques: automated exposure control; mA and/or kV adjustment per patient size (includes targeted exams where dose is matched to clinical indication); or iterative reconstruction. Contrast material: OMNIPAQUE 350; Contrast volume: 165 ml; Contrast route: INTRAVENOUS (IV); COMPARISON: CR XR hip BI m 5V wo/w pel* [id number] 09/29/2024 8:49 AM RADIATION DOSE METRICS: Total DLP (mGy-cm): 1049.88 FINDINGS: Liver: Hepatic steatosis. No suspicious liver lesion. Gallbladder and biliary ducts: Status post cholecystectomy. No biliary ductal dilatation. Pancreas: Normal. No ductal dilation. Spleen: Spleen measures 12.9 cm in length. Adrenal glands: Normal. No mass. Kidneys and ureters: The left kidney is again noted to be markedly atrophic. The right kidney is unremarkable. No right hydronephrosis. Stomach and bowel: Unremarkable. No obstruction. No mucosal thickening. Appendix: No evidence of appendicitis. Intraperitoneal space: Unremarkable. No free air. No significant fluid collection. Vasculature: Mild atherosclerotic aortoiliac calcifications. No abdominal aortic aneurysm. Lymph nodes: Unremarkable. No enlarged lymph nodes. Urinary bladder: Circumferential bladder wall thickening with pericystic fat stranding. Reproductive: Prostatomegaly. Possible prior TURP. Bones/joints: Multilevel lumbar spondylosis. No acute or aggressive osseous lesion. Soft tissues: Small fat containing left inguinal hernia. CT/CT chest abdpel w/*[id number] IMPRESSION: 1. No acute findings in the chest. 2. Bilateral thyroid nodules as detailed above. IMPRESSION: 1. Diffuse bladder wall thickening with pericystic fat stranding most suggestive of acute cystitis. Correlate with physical exam and laboratory findings. 2. Prostatomegaly. Correlate with PSA levels. 3. Borderline splenomegaly. 4. Hepatic steatosis. 5. Additional nonemergent findings as above.
--- NOTE | 2024-11-25 16:16 | ECG_ITS ---
[facility] Test Date: 2024-11-25 Pat Name: Chris Guevara Department: Room: Gender: Male Credentialer: : 1960 Requested By: Cyndee Hawthorne Order Number: [id number] Joseph MD: Alka Orourke M.D. Measurements Intervals [place] Rate: 95 P: 30 AR: 174 QRS: -4 QRSD: 156 T: 41 QT: 383 QTc: 482 Interpretive Statements SINUS RHYTHM LEFT BUNDLE BRANCH BLOCK [120+ ms QRS DURATION, 80+ ms Q/S IN V1/V2, 85+ ms R IN I/aVL/V5/V6] Compared to ECG 08/15/2024 20:27:00 No significant changes Electronically Signed On 11-26-2024 18:23:23 CDT by Alka Orourke M.D. [email or web address]
[2024-11-25 16:21] LABS: Basophils # 0.1 10^3/uL (0.0-0.1); Basophils % 0.3 %; Hematocrit 42.6 % (37-53); Lymphocytes # 0.6 10^3/uL (0.8-4.8); Lymphocytes % 3.6 %; Mean Corpuscular HGB Conc 32.6 g/dL (30-55); Mean Corpuscular Hemoglobin 31.8 pg (27-33); Mean Corpuscular Volume 97.5 fl (82-101); Mean Platelet Volume 12.8 fL (7.4-10.4); Monocytes # 0.8 10^3/uL (0.2-0.9); Monocytes % 4.6 %; Neutrophils # 15.57 10^3/uL (1.8-7.7); Neutrophils % 90.6 %; Nucleated Red Blood Cells % 0 %; Platelet Count 99 10^3/cmm (157-399); Red Blood Count 4.37 10^6/uL (3.85-5.65); Red Cell Distribution Width 13.2 % (12.1-15.1); White Blood Count 17.17 10^3/uL (3.29-11.43)
--- NOTE | 2024-11-25 16:23 | W.ED.RECABL ---
HPI - Recheck/Abnormal Lab/Rx General: Chief Complaint: Recheck/Abnormal Lab/Rx Stated Complaint: abnormal labs Time Seen by Provider: 11/25/24 15:54 History of Present Illness: 64-year-old man with a history of Parkinson's, left bundle branch block, psychiatric issues and developmental delay and hypertension who presents to the emergency room from [facility] with providers with concern for fever. He has had a fever now for about 3 days. Providers say he has had no cough. No nausea vomiting or diarrhea. No changes of his mentation. They say the doctor that covers their had done some lab work and was planning on doing imaging but the lab work came back and was off and so he sent him to the emergency room. Related Data Home Medications ?Medication ?Instructions ?Recorded ?Confirmed allopurinol 300 mg tablet 300 mg PO DAILY@11/03/20 11/25/24 metoprolol succinate 25 mg 25 mg PO DAILY@11/03/20 11/25/24 tablet,extended release 24 hr rosuvastatin 20 mg tablet 20 mg PO BEDTIME 11/03/20 11/25/24 acetaminophen 500 mg tablet 500 - 1,000 mg PO .Q4-6H PRN Pain 03/30/21 11/25/24 bismuth subsalicylate 262 mg/15 mL 524 mg PO Q4H PRN Diarrhea 03/30/21 11/25/24 oral suspension (Pepto-Bismol) cholecalciferol (vitamin D3) 25 25 mcg PO DAILY@03/30/21 11/25/24 mcg (1,000 unit) tablet (Vitamin D3) omeprazole 20 mg capsule,delayed 20 mg PO DAILY@03/30/21 11/25/24 release cyanocobalamin (vitamin B-12) 1,000 mcg PO DAILY 07/09/23 11/25/24 1,000 mcg capsule fluticasone furoate 100 1 inh inhalation DAILY 10/08/23 11/25/24 mcg/actuation blister powder for inhalation (Arnuity Ellipta) menthol 3.2 mg lozenges ([place] 3.2 mg mucous membrane Q4H PRN 10/08/23 11/25/24 Cough Drops) cough or throat irritation hydrocodone 5 mg-acetaminophen 325 1 - 2 tab PO .Q4-6H PRN Pain 06/26/24 11/25/24 mg tablet triamcinolone acetonide 0.1 % 1 applic topical BID PRN dry skin 06/26/24 11/25/24 topical cream or itching lisinopril 30 mg tablet 30 mg PO DAILY 11/03/24 11/25/24 aspirin 81 mg tablet,delayed 81 mg PO DAILY 11/25/24 11/25/24 release (Nancy Low Dose Aspirin) Previous Rx's ?Medication ?Instructions ?Recorded divalproex 500 mg tablet,extended 500 mg PO DAILY #30 tabs 05/27/24 release 24 hr (Depakote ER) Bone Growth Stimulator #1 ea 06/22/24 ondansetron HCl 4 mg tablet 4 mg PO Q8H PRN nausea and 06/26/24 vomiting #14 tabs escitalopram oxalate 20 mg tablet 20 mg PO DAILY@07 #30 tabs 10/14/24 (Lexapro) carbidopa 25 mg-levodopa 100 mg See Rx Instructions .Route 10/28/24 tablet .COMPLEX #90 tabs Allergies Allergy/AdvReac Type Severity Reaction Status Date / Time ibuprofen Allergy Unknown Verified 11/03/24 12:25 Sulfa (Sulfonamide Allergy Unknown Verified 11/03/24 12:25 Antibiotics) sulfamethoxazole (From Allergy Unknown Verified 11/03/24 12:25 Bactrim) trimethoprim (From Bactrim) Allergy Unknown Verified 11/03/24 12:25 Review of Systems Narrative: Constitutional symptoms: Negative except as documented in HPI. Skin symptoms: Negative except as documented in HPI. Eye symptoms: Negative except as documented in HPI. ENMT symptoms: Negative except as documented in HPI. Respiratory symptoms: Negative except as documented in HPI. Cardiovascular symptoms: Negative except as documented in HPI. Gastrointestinal symptoms: Negative except as documented in HPI. Genitourinary symptoms: Negative except as documented in HPI. Musculoskeletal symptoms: Negative except as documented in HPI. Neurologic symptoms: Negative except as documented in HPI. Psychiatric symptoms: Negative except as documented in HPI. Endocrine symptoms: Negative except as documented in HPI. PFSH ED PFSH: Medical History Psychiatric care HTN (hypertension) Surgical History History of cholecystectomy Social History Smoking and tobacco/nicotine status: unknown if used tobacco/nicotine Physical Exam Narrative: EXAM NARRATIVE: General: Alert, no acute distress. Skin: Warm, dry. Head: Normocephalic, atraumatic. Neck: Supple, trachea midline. Eye: Extraocular movements are intact. Ears, nose, mouth and throat: mucosa moist. Cardiovascular: Regular, Normal peripheral perfusion. Respiratory: Lungs are clear to auscultation, respirations are non-labored, breath sounds are equal, Symmetrical chest wall expansion. Gastrointestinal: Soft, Nontender, Non distended Musculoskeletal: Normal ROM, no deformity. Neurological: Alert, No focal neurological deficit observed. Psychiatric: Unable to assess. Caregiver say he is at his baseline Course Vital Signs: Vital signs: Vital Signs Temperature 101.5 F H 11/25/24 15:48 Pulse Rate 104 H 11/25/24 15:48 Respiratory Rate 18 11/25/24 15:48 Blood Pressure 120/74 11/25/24 18:39 Pulse Oximetry 92 11/25/24 19:02 Oxygen Delivery Me thod Room Air 11/25/24 19:02 MDM - Recheck/Abnormal Lab/Rx Medical Decision Making Medical decision making: Differential diagnosis including but not limited to and based on the above HPI, review of systems and physical exam in this patient with fever: Concern for sepsis. Pneumonia. Urinary tract infection. Viral illnesses. Orders placed to evaluate differential diagnosis based on the above differential, HPI and physical exam EKG: Time 1616. Rate 95. Normal sinus rhythm, No ST-T changes, no ectopy, left bundle branch block, This was reviewed and interpreted by myself the ER physician at 1620. Patient has known history of left bundle branch block. Lab Review: Laboratory results were reviewed and interpreted by myself the emergency room physician. Leukocytosis with white count 17,000. No anemia. No renal failure. Lactate is 2. I also reviewed the radiology report. Dehydration very concentrated. Nitrite positive. CT of the chest abdomen pelvis with contrast: No acute chest pathology. The only acute pathology in the abdomen is Urinalysis positive for infection and inflammation of the bladder that radiology feels indicates acute cystitis. This was reviewed and interpreted by myself the emergency room physician. I reviewed the patient's medical record. Reexamination: Patient has remained stable. Blood pressure is improved some. No changes in his mentation. No increased work of breathing. Consultation: I spoke with Dr. Skinner who is on-call for the hospitalist service who agrees to admission Assessment and plan: Urinary tract infection Sepsis Fever ?Borderline for sepsis. Urine is most definitely infected at this point. White count of 17,000. Lactate is just 2 however. Patient was tachycardic and blood pressure was a little soft. -2 L normal saline bolus. 30 mL/kg bolus was 2100. -Broad-spectrum antibiotics were administered. Cefepime and Zyvox were given. -Sepsis quality measures. -Lactic acid with a reflex was ordered. -Blood cultures were ordered . -I discussed the patient with the hospitalist on-call who is admitting the patient. - Discussed findings and plan with patient. Answered any questions. - All laboratory values were reviewed and interpreted personally by myself, the ER physician - All imaging was reviewed and interpreted personally by myself, the ER physician. - Evaluation and treatment of this problem were appropriate in the emergency setting Critical care -I spent a total of >35 minutes of critical care time managing the patient, independent of any other practitioner. -The time involved in the performance of separately reportable procedures was not counted towards critical care time. Lab Data 11/25/24 16:12 11/25/24 16:12 Radiology Impressions Chest X-Ray 11/25/24 15:56 IMPRESSION: No acute findings. Chest/Abdomen/Pelvis CT 11/25/24 16:12 IMPRESSION: 1. No acute findings in the chest. 2. Bilateral thyroid nodules as detailed above. IMPRESSION: 1. Diffuse bladder wall thickening with pericystic fat stranding most suggestive of acute cystitis. Correlate with physical exam and laboratory findings. 2. Prostatomegaly. Correlate with PSA levels. 3. Borderline splenomegaly. 4. Hepatic steatosis. 5. Additional nonemergent findings as above. Laboratory Results WBC 17.17 10^3/uL (3.29-11.43) H 11/25/24 16:12 RBC 4.37 10^6/uL (3.85-5.65) 11/25/24 16:12 Hgb 13.90 g/dL (11.27-16.99) 11/25/24 16:12 Hct 42.6 % (37-53) 11/25/24 16:12 MCV 97.5 fl (82-101) 11/25/24 16:12 MCH 31.8 pg (27-33) 11/25/24 16:12 MCHC 32.6 g/dL (30-55) 11/25/24 16:12 RDW 13.2 % (12.1-15.1) 11/25/24 16:12 Plt Count 99 10^3/cmm (157-399) L 11/25/24 16:12 MPV 12.8 fL (7.4-10.4) H 11/25/24 16:12 Neut % (Auto) 90.6 % 11/25/24 16:12 Lymph % (Auto) 3.6 % 11/25/24 16:12 [place] % (Auto) 4.6 % 11/25/24 16:12 Eos % (Auto) 0.0 % 11/25/24 16:12 Baso % (Auto) 0.3 % 11/25/24 16:12 Neut # (Auto) 15.57 10^3/uL (1.8-7.7) H 11/25/24 16:12 Lymph # (Auto) 0.6 10^3/uL (0.8-4.8) L 11/25/24 16:12 [place] # (Auto) 0.8 10^3/uL (0.2-0.9) 11/25/24 16:12 Eos # (Auto) 0.0 10^3/uL (0.0-0.8) 11/25/24 16:12 Baso # (Auto) 0.1 10^3/uL (0.0-0.1) 11/25/24 16:12 Nucleated RBC % (auto) 0 % 11/25/24 16:12 Nucleated RBCs # 0.0 /100WBC 11/25/24 16:12 Sodium 139 mmol/L (136-145) 11/25/24 16:12 Potassium 3.7 mmol/L (3.5-5.1) 11/25/24 16:12 Chloride 100 mmol/L (98-107) 11/25/24 16:12 Carbon Dioxide 25 mmol/L (22-29) 11/25/24 16:12 Anion Gap 17.7 (5-19) 11/25/24 16:12 BUN 18 mg/dL (8-23) 11/25/24 16:12 Creatinine 0.9 mg/dL (0.7-1.2) 11/25/24 16:12 GFR Calculation 84.7 mL/min (90-130) L 11/25/24 16:12 Glucose 106 mg/dL (65-115) 11/25/24 16:12 Calculated Osmolality 290 mOsm/kg (285-295) 11/25/24 16:12 Lactic Acid 2.0 mmol/L (0.5-2.2) 11/25/24 16:12 Calcium 8.9 mg/dL (8.5-10.5) 11/25/24 16:12 Total Bilirubin 1.3 mg/dL (0.15-1.2) H 11/25/24 16:12 AST 155 U/L (0-40) H 11/25/24 16:12 ALT 140 U/L (0-41) H 11/25/24 16:12 Alkaline Phosphatase 196 U/L (40-130) H 11/25/24 16:12 Total Protein 6.8 g/dL (6.6-8.7) 11/25/24 16:12 Albumin 3.8 g/dL (3.5-5.2) 11/25/24 16:12 Globulin 3.0 g/dL (1.3-4.6) 11/25/24 16:12 Urine Color [place] (Yellow) A 11/25/24 18:50 Urine Appearance Cloudy (CLEAR) A 11/25/24 18:50 Urine pH 6.0 (5-7) 11/25/24 18:50 Ur Specific [place] 1.064 (1.005-1.030) H 11/25/24 18:50 Urine Protein 2+ (Negative) A 11/25/24 18:50 Urine Glucose (UA) Negative (Normal) 11/25/24 18:50 Urine Ketones Trace (Negative) 11/25/24 18:50 Urine Blood 3+ (Negative) A 11/25/24 18:50 Urine Nitrate Positive (Negative) A 11/25/24 18:50 Urine Bilirubin 2+ (Negative) H 11/25/24 18:50 Urine Urobilinogen 2.0 mg/dL (Negative) H 11/25/24 18:50 Ur Leukocyte Esterase 2+ (Negative) A 11/25/24 18:50 Urine RBC 51-100 /hpf (0-2) H 11/25/24 18:50 Urine WBC >100 /hpf (0-5) H 11/25/24 18:50 Ur Squamous Epith Cells 0-5 /hpf (0-5) 11/25/24 18:50 Amorphous Sediment Not Reportable 11/25/24 18:50 Urine Bacteria None seen /hpf (NONE) 11/25/24 18:50 Hyaline Casts 0.81 /lpf 11/25/24 18:50 Influenza A (PCR) Negative (Negative) 11/25/24 17:33 Influenza Type B (PCR) Negative (Negative) 11/25/24 17:33 RSV (PCR) Negative (Negative) 11/25/24 17:33 SARS-CoV-2 (PCR) Negative (Negative) 11/25/24 17:33 All radiology interpretation(s) finalized by discharge Discharge Plan Discharge Patient Disposition: Admitted As Inpatient Clinical Impression: Urinary tract infection, Sepsis Condition: Stable Coding Level of Care Code ED Bank Reconciliator for Bekah Pollock
[2024-11-25 16:40] LABS: Alanine Aminotransferase 140 U/L (0-41); Albumin Level 3.8 g/dL (3.5-5.2); Alkaline Phosphatase 196 U/L (40-130); Anion Gap 17.7 (5-19); Aspartate Amino Transferase 155 U/L (0-40); Blood Urea Nitrogen 18 mg/dL (8-23); Calcium 8.9 mg/dL (8.5-10.5); Carbon Dioxide 25 mmol/L (22-29); Chloride 100 mmol/L (98-107); Creatinine Clr Calc Pharmacy 80.0495; Glomerular Filtration Rate 84.7 mL/min (90-130); Glucose 106 mg/dL (65-115); Osmolality Calculated 290 mOsm/kg (285-295); Potassium 3.7 mmol/L (3.5-5.1); Sodium 139 mmol/L (136-145); Total Bilirubin 1.3 mg/dL (0.15-1.2); Total Protein 6.8 g/dL (6.6-8.7)
[2024-11-25] MEDS: linezolid premix 600 MG/300 ML PREMIX 300 MG IV (16:51)
[2024-11-25] MEDS: sodium chloride 0.9% 2,109.21 ML 2109.21 ML IV (16:58)
[2024-11-25] MEDS: cefepime 2,000 mg SDV 2000 MG IVP (16:59)
[2024-11-25 17:14] VITALS: BP 120/74; O2SAT 95
[2024-11-25] MEDS: ondansetron 2 mg/ML SDV 2 mL 8 MG IVP (17:59)
[2024-11-25] MEDS: iohexol 350 mg/mL 500 mL Btl (per mL) IV ×2 (18:07→18:31)
[2024-11-25 18:31] LABS: Influenza A NEGATIVE (Negative); Influenza B NEGATIVE (Negative); Respiratory Syncytial Virus Ce NEGATIVE (Negative); SARS-CoV-2 PCR NEGATIVE (Negative)
[2024-11-25 18:39] VITALS: BP 120/74; O2SAT 90
[2024-11-25 19:02] VITALS: O2SAT 92
[2024-11-25 19:09] LABS: Bilirubin Urine 2+ (Negative); Blood Urine 3+ (Negative); Glucose Urine UA Negative (Normal); Ketones Urine Trace (Negative); Leukocyte Esterase Urine 2+ (Negative); Nitrate Urine Positive (Negative); Protein Urine 2+ (Negative); Urine Appearance Cloudy (CLEAR)
[2024-11-25 19:14] LABS: Bacteria Urine None Seen /hpf; Hyaline Casts Urine 0.81 /lpf; RBC Urine 51-100 /hpf (0-2); Squamous Epithelial Cell Urine 0-5 /hpf (0-5); WBC Urine >100 /hpf (0-5)
[2024-11-25 19:22] LABS: Add Urine Culture? Yes; Specific Gravity, Urine 1.064 (1.005-1.030); Urine Color Orange (Yellow)
[2024-11-25 19:30] LABS: UA Slide Review UA Slide Review Perf
[2024-11-25 20:22] VITALS: BP 120/74; O2SAT 92
[2024-11-25 20:55] VITALS: BMI 24.4
[2024-11-25 22:16] VITALS: BP 92/54; PULSE 100; RESP 18; TEMP 36.8; O2SAT 91
--- NOTE | 2024-11-25 23:23 | PM.HP ---
Providers/Chief Complaint Admitting Physician: Kelsey Skinner MD Primary Care Provider: Matthew Sanchez MD Chief Complaint: abnormal labs and fever History of Present Illness Chris Guevara is a 64 year old male with medical history significant for developmental delay requiring activity of daily living by another who lives in a home facility for care. This patient medical history is compounded with parkinsonian disease and seizure disorder patient had been noted to be running fever for the past 2 days, with abdominal pain. Patient was brought to the emergency room from his home where he is being cared for because of the aforementioned problems. Lab studies were significant for transaminitis urinalysis were noted to be with pyuria and temperature upon arriving to the emergency room was 101.5 ?F. Patient maintained decent blood pressure Patient indeed is with acute pyelonephritis with sepsis white count was initially at 20,000 from the outside facility and now 17,000 slight tachycardia which has since improved after 2 L of fluid. Given by the outside facility patient received cefepime in the emergency room and I have initiated ceftriaxone 2 g IV daily will obtain ultrasound of the right upper quadrant because of patient's transaminitis and hyperbilirubinemia Review of Systems General: Reports: 10 or more systems reviewed and unremarkable except in HPI and below Medications/Allergies Home Medications ?Medication ?Instructions ?Recorded ?Confirmed ?Last Taken ?Type allopurinol 300 mg tablet 300 mg PO DAILY@11/03/20 11/25/24 11/25/24 History metoprolol succinate 25 mg 25 mg PO DAILY@11/03/20 11/25/24 11/25/24 07:00 History tablet,extended release 24 hr rosuvastatin 20 mg tablet 20 mg PO BEDTIME 11/03/20 11/25/24 11/24/24 20:00 History acetaminophen 500 mg tablet 500 - 1,000 mg PO .Q4-6H PRN Pain 03/30/21 11/25/24 06/23/24 History bismuth subsalicylate 262 mg/15 mL 524 mg PO Q4H PRN Diarrhea 03/30/21 11/25/24 06/18/24 History oral suspension (Pepto-Bismol) cholecalciferol (vitamin D3) 25 25 mcg PO DAILY@03/30/21 11/25/24 11/25/24 07:00 History mcg (1,000 unit) tablet (Vitamin D3) omeprazole 20 mg capsule,delayed 20 mg PO DAILY@07 03/30/21 11/25/24 11/25/24 07:00 History release cyanocobalamin (vitamin B-12) 1,000 mcg PO DAILY 07/09/23 11/25/24 11/25/24 07:00 History 1,000 mcg capsule fluticasone furoate 100 1 inh inhalation DAILY 10/08/23 11/25/24 11/25/24 07:00 History mcg/actuation blister powder for inhalation (Arnuity Ellipta) menthol 3.2 mg lozenges ([place] 3.2 mg mucous membrane Q4H PRN 10/08/23 11/25/24 Unknown History Cough Drops) cough or throat irritation divalproex 500 mg tablet,extended 500 mg PO DAILY #30 tabs 05/27/24 11/25/24 11/24/24 19:00 Rx release 24 hr (Depakote ER) Bone Growth Stimulator #1 ea 06/22/24 11/25/24 Unknown Rx hydrocodone 5 mg-acetaminophen 325 1 - 2 tab PO .Q4-6H PRN Pain 06/26/24 11/25/24 06/26/24 History mg tablet ondansetron HCl 4 mg tablet 4 mg PO Q8H PRN nausea and 06/26/24 11/25/24 Unknown Rx vomiting #14 tabs triamcinolone acetonide 0.1 % 1 applic topical BID PRN dry skin 06/26/24 11/25/24 Unknown History topical cream or itching escitalopram oxalate 20 mg tablet 20 mg PO DAILY@07 #30 tabs 10/14/24 11/25/24 11/25/24 07:00 Rx (Lexapro) carbidopa 25 mg-levodopa 100 mg See Rx Instructions .Route 10/28/24 11/25/24 11/25/24 11:00 Rx tablet .COMPLEX #90 tabs lisinopril 30 mg tablet 30 mg PO DAILY 11/03/24 11/25/24 11/25/24 07:00 History aspirin 81 mg tablet,delayed 81 mg PO DAILY 11/25/24 11/25/24 11/25/24 07:00 History release (Nancy Low Dose Aspirin) Allergies Allergy/AdvReac Type Severity Reaction Status Date / Time ibuprofen Allergy Unknown Verified 11/03/24 12:25 Sulfa (Sulfonamide Allergy Unknown Verified 11/03/24 12:25 Antibiotics) sulfamethoxazole (From Allergy Unknown Verified 11/03/24 12:25 Bactrim) trimethoprim (From Bactrim) Allergy Unknown Verified 11/03/24 12:25 PFSH Acute PFSH: Medical History Psychiatric care HTN (hypertension) Surgical History History of cholecystectomy Social History Smoking and tobacco/nicotine status: unknown if used tobacco/nicotine Vitals/I&O/Wt Last Vital Signs Temp 101.5 F H 11/25/24 15:48 Pulse 104 H 11/25/24 15:48 Resp 18 11/25/24 15:48 BP 120/74 11/25/24 20:22 Pulse Ox 92 11/25/24 20:22 O2 Del Method Room Air 11/25/24 20:36 11/25/24 11/25/24 11/26/24 14:59 22:59 06:59 Intake Total 2409.21 / 2409.21 Balance 2409.21 / 2409.21 Weight last 48 hrs Weight 72.938 kg Weight 70.307 kg Physical Exam Narrative: General The patient is calm mildly toxic looking. Very cooperative able to answer questions and very pleasant. HEENT?normocephalic/atraumatic Neck?neck is supple Chest?lungs are clear has good air movement Abdomen?soft nondistended diffusely tenderness in a mild degree has good bowel sounds ?unremarkable Extremities?no edema, has good pulses Neurology?no active focality Data 11/25/24 16:12 11/25/24 16:12 Micro: Microbiology 11/25/24 16:12 Blood Culture - Preliminary Blood SPECIMEN COLLECTED 11/25/24 16:12 Blood Culture - Preliminary Blood SPECIMEN COLLECTED CT Abd/Pel: My impression: CT of the chest abdomen and pelvics essentially unremarkable except for bladder wall thickening significant for acute cystitis Radiologist's impression: Acute cystitis graphic and radiologist impression Other data: Transaminitis worrisome for gallbladder disease, UTI, leukocytosis, febrile illness abdominal pain with cystitis A&P Assessment and plan (1) Sepsis: Mild sepsis ---secondary to UTI/pyelonephritis --- Continue gentle hydration ----Initiated ceftriaxone 2 g IV daily --- If blood cultures were not obtained from the emergency room one will be obtained at this time ----Will follow through with interval lab studies (2) Pyelonephritis, acute: Continue with FRANTZ of UTI with sepsis patient with pyelonephritis with fever must continue to treat and optimize follow-up with cultures continue IV fluid antibiotics and being mindful of any fluid overload (3) Urinary tract infection: Continue to care with UTI with sepsis, IV antibiotics IV fluid, follow-up with cultures and optimize accordingly (4) Stenosis of cervical spine region: This is a chronic illness continue patient levodopa and carbidopa medication. (5) Transaminitis: Must rule out gallbladder processes in the setting of abdominal pain at presentation with transaminitis - Right upper quadrant ultrasound ordered and follow-up with result and optimize accordingly - Will follow-up with interval lab studies. Transaminase (6) Chest pain: Chest pain is a documentation on the chart upon my evaluating the patient patient denies any chest pains. Was continue to follow through and monitor. (7) Panic disorder: Patient has a history of this continue with home medication (8) Cardiomyopathy: Patient is with a history of cardiomyopathy no acute process at this time continue with the patient medication (9) Cervical spondylosis with myelopathy: Continue patient with home medications for this management of cervical spondylosis with myelopathy (10) Parkinson disease: (11) Seizures: Continue home seizure medications PDMP PDMP Reviewed: Not Reviewed Attestations Medical Necessity Statement*: This patient has multiple acute presentation requiring at least 2 midnight stay to treat early sepsis before it gets worse with febrile illness and leukocytosis with region UTI with sepsis Coding Level of Care Code 38181 Diagnoses Sepsis A41.9 Acute renal failure type: unspecified Pyelonephritis, acute N10 Acute pyelonephritis N10 Urinary tract infection type: acute pyelonephritis Stenosis of cervical spine region M48.02 Transaminitis R74.01 Chest pain R07.9 Chest pain type: unspecified Panic disorder F41.0 Cardiomyopathy I42.9 Cervical spondylosis with myelopathy M47.12 Parkinson disease G20.A1 Dyskinesia presence: without dyskinesia Seizures R56.9 Time Spent (min) 60
[2024-11-25] MEDS: heparin 5,000 unit/mL INJ 1 mL 5000 UNIT SUBCUT (23:50)
[2024-11-25] MEDS: carbidopa-levodopa 25-100mg Tablet 1 EACH PO (23:50)
[2024-11-25] MEDS: cefTRIAXone 2,000 mg SDV 2000 MG IVP (23:50)
[2024-11-25] MEDS: sodium chloride 0.9% 1,000 ML 100 ML IV (23:50)
[2024-11-26] VITALS (7 sets, daily range): BP systolic 94–107; BP diastolic 51–65; PULSE 67–101; RESP 16–19; TEMP 36.3–36.8; O2SAT 90–96
--- NOTE | 2024-11-26 04:43 | US_ITS ---
WS: [id number] RIGHT UPPER QUADRANT ULTRASOUND HISTORY: transaminits COMPARISON: CT abdomen Liver: 15.6 cm in length. Normal size liver and echogenicity. No bile duct dilatation or mass. Portal Vein: Normal hepatopetal flow with monophasic waveform. Gallbladder: Surgically absent. CBD: 0.4 cm Pancreas: Not visualized. Right kidney: 13.1 cm in length. Normal size and echogenicity. No hydronephrosis or mass. Aorta and IVC: Limited but normal. No ascites. US/US gall bladder [id number] IMPRESSION: 1. Surgically absent gallbladder. 2. Normal common bile duct. 3. Normal liver with no intrahepatic duct dilatation.
[2024-11-26 06:17] LABS: Basophils % 0.3 %; Eosinophils # 0.1 10^3/uL (0.0-0.8); Eosinophils % 0.9 %; Hematocrit 37.2 % (37-53); Lymphocytes # 0.7 10^3/uL (0.8-4.8); Lymphocytes % 5.1 %; Mean Corpuscular HGB Conc 31.7 g/dL (30-55); Mean Corpuscular Hemoglobin 31.4 pg (27-33); Mean Corpuscular Volume 98.9 fl (82-101); Monocytes # 1.1 10^3/uL (0.2-0.9); Monocytes % 8.3 %; Neutrophils # 11.48 10^3/uL (1.8-7.7); Neutrophils % 83.9 %; Nucleated Red Blood Cells % 0 %; Platelet Count 82 10^3/cmm (157-399); Red Blood Count 3.76 10^6/uL (3.85-5.65); Red Cell Distribution Width 13.3 % (12.1-15.1)
[2024-11-26 06:30] LABS: INR 1.32 (0.8-1.2)
[2024-11-26 06:34] LABS: Chol HDL Ratio 2.07 mg/dL (1.0-5.00); Cholesterol 62 mg/dL (0-200); HDL Cholesterol 30 mg/dL (60-100); LDL Cholesterol Calculated 13 mg/dL (50-129); LDL HDL Ratio 0.43 RATIO (0.00-3.22); Triglycerides 97 mg/dL (0-150)
[2024-11-26 06:48] LABS: Alanine Aminotransferase 58 U/L (0-41); Alkaline Phosphatase 195 U/L (40-130); Anion Gap 13.6 (5-19); Aspartate Amino Transferase 98 U/L (0-40); Blood Urea Nitrogen 16 mg/dL (8-23); Carbon Dioxide 23 mmol/L (22-29); Chloride 104 mmol/L (98-107); Creatinine Clr Calc Pharmacy 81.2676; Globulin 2.7 g/dL (1.3-4.6); Glomerular Filtration Rate 84.7 mL/min (90-130); Glucose 104 mg/dL (65-115); Magnesium 1.5 mg/dL (1.7-2.3); Osmolality Calculated 285 mOsm/kg (285-295); Phosphorus 3.2 mg/dL (2.5-4.5); Potassium 3.6 mmol/L (3.5-5.1); Sodium 137 mmol/L (136-145); Total Bilirubin 0.8 mg/dL (0.15-1.2); Total Protein 5.7 g/dL (6.6-8.7)
[2024-11-26] MEDS: pantoprazole DR 40 mg Tablet PO (07:49)
[2024-11-26] MEDS: allopurinol 300 mg Tablet PO (07:49)
[2024-11-26] MEDS: carbidopa-levodopa 25-100mg Tablet 1 EACH PO ×3 (07:49→17:46)
[2024-11-26] MEDS: cholecalciferol (vitamin D3) 1,000 unit Tablet 1000 UNIT PO (07:49)
[2024-11-26 08:12] LABS: C Reactive Protein 207.4 mg/L (0.0-4.9); Gamma Glutamyl Transferase 94 U/L (8-61); Lipase 11 U/L (13-60)
[2024-11-26] MEDS: sodium chloride 0.9% 1,000 ML 100 ML IV (11:03)
[2024-11-26] MEDS: heparin 5,000 unit/mL INJ 1 mL 5000 UNIT SUBCUT ×2 (11:03→23:55)
--- NOTE | 2024-11-26 13:07 | P.PN_ITS ---
Subjective 2 Subjective: Patient was seen this morning, he is alert to person, to place, not to time he follows all commands, does report abdominal pain, does report bilateral flank pain, no fevers, no chills Vitals/I&O/Wt Last Vital Signs Temp 98.0 F 11/26/24 11:08 Pulse 67 11/26/24 11:08 Resp 18 11/26/24 11:08 BP 107/61 11/26/24 11:08 Pulse Ox 95 11/26/24 11:08 O2 Del Method Room Air 11/26/24 11:08 11/25/24 11/26/24 11/26/24 22:59 06:59 14:59 Intake Total 2409.21 / 2409.21 1600 / 1600 Balance 2409.21 / 2409.21 1600 / 1600 Weight last 48 hrs Weight 72.938 kg Weight 70.307 kg Physical Exam 2 Const: COMMON NORMALS: no acute distress Eye: COMMON NORMALS: Equal, round and reactive pupils present PUPIL: Yes Equal, round and reactive pupils present Resp: COMMON NORMALS: normal respiratory effort, No retractions, No use of accessory muscles and clear to auscultation bilaterally AUSCULTATION: clear to auscultation bilaterally Cardio: COMMON NORMALS: regular rate, regular rhythm, S1 normal heart sound present and S2 normal heart sound present RATE: regular rate RHYTHM: r egular rhythm HEART SOUNDS: S1 normal heart sound present and S2 normal heart sound present GI: COMMON NORMALS: Normal to inspection, nondistended, normoactive bowel sounds present and non-tender OTHER: Bilateral CVA tenderness Extremity: COMMON NORMALS: no pedal edema Data 11/26/24 06:00 11/26/24 06:00 Micro: Microbiology 11/26/24 06:06 Blood Culture - Preliminary Blood SPECIMEN COLLECTED 11/26/24 06:00 Blood Culture - Preliminary Blood SPECIMEN COLLECTED 11/25/24 16:12 Blood Culture - Preliminary Blood SPECIMEN COLLECTED 11/25/24 16:12 Blood Culture - Preliminary Blood SPECIMEN COLLECTED A&P Assessment and plan (1) Sepsis: Sepsis features met, with elevated CRP, leukocytosis, -Source UTI, pyelonephritis (2) Pyelonephritis, acute: - Continue Rocephin 2 g IV every 24 hours - Follow blood cultures - Follow urine culture (3) Urinary tract infection: As above (4) Stenosis of cervical spine region: (5) Transaminitis: - CT scan abdomen pelvis -IMPRESSION: 1. Diffuse bladder wall thickening with pericystic fat stranding most suggestive of acute cystitis. Correlate with physical exam and laboratory findings. 2. Prostatomegaly. Correlate with PSA levels. 3. Borderline splenomegaly. 4. Hepatic steatosis. 5. Additional nonemergent findings as above. Gallbladder ultrasound US/US gall bladder [id number] IMPRESSION: 1. Surgically absent gallbladder. 2. Normal common bile duct. 3. Normal liver with no intrahepatic duct dilatation. -Acute hep panel, ferritin, HIV (6) Chest pain: -no chest pain (7) Panic disorder: (8) Cardiomyopathy: (9) Cervical spondylosis with myelopathy: (10) Parkinson disease: (11) Seizures: Continue home seizure medications PDMP PDMP Reviewed: Not Reviewed Attestations 2 Medical Necessity Statement*: patient requires hospitalization for uti, pyelonephritis, transaminitis Diagnoses Sepsis A41.9 Acute renal failure type: unspecified Pyelonephritis, acute N10 Acute pyelonephritis N10 Urinary tract infection type: acute pyelonephritis Stenosis of cervical spine region M48.02 Transaminitis R74.01 Chest pain R07.9 Chest pain type: unspecified Panic disorder F41.0 Cardiomyopathy I42.9 Cervical spondylosis with myelopathy M47.12 Parkinson disease G20.A1 Dyskinesia presence: without dyskinesia Seizures R56.9
[2024-11-26 13:48] LABS: Ferritin 490 ng/mL (30-400)
[2024-11-26 13:50] LABS: Salicylate < 0.3 mg/dL (3-10)
[2024-11-26 14:05] LABS: HIV 1 & 2 Antibody Non-Reactive (Non-Reactiv); HIV 1 & 2 Antigen Non-Reactive (Non-Reactiv)
[2024-11-26 14:19] LABS: Hepatitis A Antibody IgM Non-Reactive (Nonreactive); Hepatitis B Core IgM Non-Reactive (Nonreactive); Hepatitis B Surface Antigen Non-Reactive (Nonreactive); Hepatitis C Virus Antibody Non-Reactive (Nonreactive)
[2024-11-26] MEDS: sennosides 8.6 mg Tablet 17.2 MG PO (21:49)
[2024-11-26] MEDS: ATORVASTATIN 10 MG TABLET 20 MG PO (21:49)
[2024-11-26] MEDS: cefTRIAXone 2,000 mg SDV 2000 MG IVP (23:55)
[2024-11-27] VITALS: BP 110/68; PULSE 93; RESP 16; TEMP 36.7; O2SAT 92
[2024-11-27 04:00] VITALS: BP 156/74; PULSE 96; RESP 20; TEMP 37.6; O2SAT 91
[2024-11-27] MEDS: sodium chloride 0.9% 1,000 ML 100 ML IV (05:20)
[2024-11-27] MEDS: escitalopram 10 mg Tablet 20 MG PO (06:06)
[2024-11-27 06:12] LABS: Basophils % 0.2 %; Eosinophils # 0.1 10^3/uL (0.0-0.8); Eosinophils % 1.4 %; Hematocrit 34.9 % (37-53); Lymphocytes # 0.4 10^3/uL (0.8-4.8); Lymphocytes % 4.4 %; Mean Corpuscular HGB Conc 32.4 g/dL (30-55); Mean Corpuscular Hemoglobin 31.6 pg (27-33); Mean Corpuscular Volume 97.5 fl (82-101); Mean Platelet Volume 12.8 fL (7.4-10.4); Monocytes # 0.7 10^3/uL (0.2-0.9); Monocytes % 7.4 %; Neutrophils % 86.3 %; Nucleated Red Blood Cells % 0 %; Platelet Count 79 10^3/cmm (157-399); Red Blood Count 3.58 10^6/uL (3.85-5.65); Red Cell Distribution Width 13.3 % (12.1-15.1); White Blood Count 9.28 10^3/uL (3.29-11.43)
[2024-11-27 06:35] LABS: INR 0.98 (0.8-1.2)
[2024-11-27 06:36] LABS: Alanine Aminotransferase 66 U/L (0-41); Albumin Level 2.8 g/dL (3.5-5.2); Alkaline Phosphatase 222 U/L (40-130); Anion Gap 11.7 (5-19); Aspartate Amino Transferase 63 U/L (0-40); Blood Urea Nitrogen 11 mg/dL (8-23); Calcium 7.8 mg/dL (8.5-10.5); Carbon Dioxide 26 mmol/L (22-29); Chloride 107 mmol/L (98-107); Creatinine Clr Calc Pharmacy 92.4417; Globulin 2.6 g/dL (1.3-4.6); Glomerular Filtration Rate 113.2 mL/min (90-130); Glucose 124 mg/dL (65-115); Osmolality Calculated 293 mOsm/kg (285-295); Potassium 3.7 mmol/L (3.5-5.1); Sodium 141 mmol/L (136-145); Total Bilirubin 0.3 mg/dL (0.15-1.2); Total Protein 5.4 g/dL (6.6-8.7)
[2024-11-27 07:41] VITALS: BP 114/61; PULSE 88; RESP 14; TEMP 37.6; O2SAT 90
[2024-11-27] MEDS: pantoprazole DR 40 mg Tablet PO (08:14)
[2024-11-27] MEDS: aspirin 81 mg EC Tablet PO (08:14)
[2024-11-27] MEDS: cholecalciferol (vitamin D3) 1,000 unit Tablet 1000 UNIT PO (08:14)
[2024-11-27] MEDS: divalproex ER 500 mg Tablet (24H) PO (08:14)
[2024-11-27] MEDS: allopurinol 300 mg Tablet PO (08:14)
[2024-11-27] MEDS: carbidopa-levodopa 25-100mg Tablet 1 EACH PO ×3 (08:14→17:18)
--- NOTE | 2024-11-27 11:48 | PC.SOCIAL ---
IMM Updated Updated pt on IMM. No questions voiced. Provided pt a copy. Initialed, dated, & timed a copy & placed in chart.
[2024-11-27 11:57] VITALS: BP 156/77; PULSE 84; RESP 16; TEMP 36.8; O2SAT 95
[2024-11-27] MEDS: heparin 5,000 unit/mL INJ 1 mL 5000 UNIT SUBCUT ×2 (12:31→22:27)
--- NOTE | 2024-11-27 12:49 | P.PN_ITS ---
Subjective 2 Subjective: Patient was seen this morning, he tells me he is not feeling well this morning reports chills, fevers, no nausea, vomiting abdominal pain is improving, Vitals/I&O/Wt Last Vital Signs Temp 98.2 F 11/27/24 11:57 Pulse 84 11/27/24 11:57 Resp 16 11/27/24 11:57 BP 156/77 11/27/24 11:57 Pulse Ox 95 11/27/24 11:57 O2 Del Method Room Air 11/27/24 11:57 11/26/24 11/27/24 11/27/24 22:59 06:59 14:59 Intake Total 1240 / 2840 Balance 1240 / 2840 Weight last 48 hrs Weight 74.888 kg Weight 72.938 kg Weight 70.307 kg Physical Exam 2 Const: COMMON NORMALS: no acute distress and patient oriented x3 Resp: COMMON NORMALS: normal respiratory effort, No retractions, No use of accessory muscles and clear to auscultation bilaterally AUSCULTATION: clear to auscultation bilaterally Cardio: COMMON NORMALS: regular rate, regular rhythm, S1 normal heart sound present and S2 normal heart sound present RATE: regular rate RHYTHM: r egular rhythm HEART SOUNDS: S1 normal heart sound present and S2 normal heart sound present GI: COMMON NORMALS: Normal to inspection, nondistended, normoactive bowel sounds present and non-tender Extremity: COMMON NORMALS: no pedal edema Neuro: COMMON NORMALS: patient oriented x3 Psych: COMMON NORMALS: mental status grossly normal Data 11/28/24 02:41 11/28/24 02:41 Micro: Microbiology 11/25/24 18:50 Urine Culture - Final Urine,Clean Catch 11/26/24 06:06 Blood Culture - Preliminary Blood NEGATIVE TO DATE 11/26/24 06:00 Blood Culture - Preliminary Blood NEGATIVE TO DATE 11/25/24 16:12 Blood Culture - Preliminary Blood NEGATIVE TO DATE 11/25/24 16:12 Blood Culture - Preliminary Blood NEGATIVE TO DATE A&P Assessment and plan (1) Sepsis: Sepsis features met, with elevated CRP, leukocytosis, -Source UTI, pyelonephritis (2) Pyelonephritis, acute: - Continue Rocephin 2 g IV every 24 hours - Follow blood cultures - Follow urine culture (3) Urinary tract infection: As above (4) Stenosis of cervical spine region: (5) Transaminitis: - CT scan abdomen pelvis -IMPRESSION: 1. Diffuse bladder wall thickening with pericystic fat stranding most suggestive of acute cystitis. Correlate with physical exam and laboratory findings. 2. Prostatomegaly. Correlate with PSA levels. 3. Borderline splenomegaly. 4. Hepatic steatosis. 5. Additional nonemergent findings as above. Gallbladder ultrasound US/US gall bladder [id number] IMPRESSION: 1. Surgically absent gallbladder. 2. Normal common bile duct. 3. Normal liver with no intrahepatic duct dilatation. -Acute hep panel,HIV within normal limits -Ferritin 490, will order iron studies, (6) Chest pain: -no chest pain (7) Panic disorder: (8) Cardiomyopathy: (9) Cervical spondylosis with myelopathy: (10) Parkinson disease: (11) Seizures: Continue home seizure medications Plan Plan for today, PT OT, continue IV antibiotics, iron studies, IV fluids PDMP PDMP Reviewed: Not Reviewed Attestations 2 Medical Necessity Statement*: patient requires hospitalization for sepsis, pyelonephritis Diagnoses Sepsis A41.9 Acute renal failure type: unspecified Pyelonephritis, acute N10 Acute pyelonephritis N10 Urinary tract infection type: acute pyelonephritis Stenosis of cervical spine region M48.02 Transaminitis R74.01 Chest pain R07.9 Chest pain type: unspecified Panic disorder F41.0 Cardiomyopathy I42.9 Cervical spondylosis with myelopathy M47.12 Parkinson disease G20.A1 Dyskinesia presence: without dyskinesia Seizures R56.9
[2024-11-27 13:23] LABS: Iron 13 ug/dL (59-158); Percent Saturation 10.3 % (20-50); Total Iron Binding Capacity 126 mcg/dl; Unsaturated Iron Binding 113 ug/dL (112-347)
[2024-11-27 15:45] VITALS: BP 157/75; PULSE 87; RESP 16; TEMP 36.8; O2SAT 96
[2024-11-27 20:00] VITALS: BP 139/79; PULSE 85; RESP 18; TEMP 36.7; O2SAT 95
[2024-11-27] MEDS: cefTRIAXone 2,000 mg SDV 2000 MG IVP (22:27)
[2024-11-27] MEDS: ATORVASTATIN 10 MG TABLET 20 MG PO (22:27)
[2024-11-27] MEDS: sodium chloride 0.9% 1,000 ML 50 ML IV (22:31)
[2024-11-28] VITALS (8 sets, daily range): BP systolic 126–180; BP diastolic 71–84; PULSE 78–94; RESP 15–18; TEMP 36.5–37.2; O2SAT 90–94
[2024-11-28 03:17] LABS: Basophils % 0.5 %; Eosinophils # 0.2 10^3/uL (0.0-0.8); Eosinophils % 3.4 %; Hematocrit 34.4 % (37-53); Lymphocytes # 0.6 10^3/uL (0.8-4.8); Lymphocytes % 9.5 %; Mean Corpuscular HGB Conc 31.7 g/dL (30-55); Mean Corpuscular Hemoglobin 31.1 pg (27-33); Mean Platelet Volume 13.1 fL (7.4-10.4); Monocytes # 0.5 10^3/uL (0.2-0.9); Monocytes % 8.1 %; Neutrophils # 5.05 10^3/uL (1.8-7.7); Neutrophils % 78.3 %; Nucleated Red Blood Cells % 0 %; Platelet Count 92 10^3/cmm (157-399); Red Blood Count 3.51 10^6/uL (3.85-5.65); Red Cell Distribution Width 13.3 % (12.1-15.1); White Blood Count 6.44 10^3/uL (3.29-11.43)
[2024-11-28 03:34] LABS: INR 0.89 (0.8-1.2)
[2024-11-28 03:42] LABS: Alanine Aminotransferase 73 U/L (0-41); Albumin Level 2.9 g/dL (3.5-5.2); Alkaline Phosphatase 320 U/L (40-130); Anion Gap 12.3 (5-19); Aspartate Amino Transferase 63 U/L (0-40); Blood Urea Nitrogen 8 mg/dL (8-23); Carbon Dioxide 28 mmol/L (22-29); Chloride 107 mmol/L (98-107); Creatinine Clr Calc Pharmacy 92.4417; Globulin 2.9 g/dL (1.3-4.6); Glomerular Filtration Rate 113.2 mL/min (90-130); Glucose 138 mg/dL (65-115); Osmolality Calculated 299 mOsm/kg (285-295); Potassium 3.3 mmol/L (3.5-5.1); Sodium 144 mmol/L (136-145); Total Bilirubin 0.3 mg/dL (0.15-1.2); Total Protein 5.8 g/dL (6.6-8.7)
[2024-11-28] MEDS: escitalopram 10 mg Tablet 20 MG PO (06:34)
[2024-11-28] MEDS: carbidopa-levodopa 25-100mg Tablet 1 EACH PO ×3 (09:21→17:36)
[2024-11-28] MEDS: pantoprazole DR 40 mg Tablet PO (09:21)
[2024-11-28] MEDS: divalproex ER 500 mg Tablet (24H) PO (09:21)
[2024-11-28] MEDS: cholecalciferol (vitamin D3) 1,000 unit Tablet 1000 UNIT PO (09:21)
[2024-11-28] MEDS: allopurinol 300 mg Tablet PO (09:22)
[2024-11-28] MEDS: aspirin 81 mg EC Tablet PO (09:22)
--- NOTE | 2024-11-28 11:54 | PC.CHAP ---
Pastoral Care Encounter/Spiritual Assessment Type of Contact [] Declined hadoop infrastructure architect visit [] Patient/Family/Request visit [] Outpatient visit [] Follow-up visit [] Physician referral [] Code/Alert [x] Routine visit [] Staff referral [] Actively dying [] Patient sleeping [] Family support [] [] Out of room [] Palliative care [] [] Receiving care in room [] Pre-surgical visit [] Trauma [] Long length of stay [] ICU visit [] Other: Relational/Emotional Strength [] Patient feels connected with others/family/visitors/staff [] Distress [] Loneliness/isolation [] Abandonment Spirituality of Patient [] Person of Bridget [] Attends Protestant of their Bridget [] Believes in Prayer [] Reads Bible or Rastafarian materials [] There are Spiritual issues to be addressed Elevator Examiner And Adjuster Interventions [] Prayer [] Active listening [] Non-anxious presence [] Spiritual/emotional support [] Crisis/trauma care [] Spiritual counseling [] Bereavement support [] Provided bereavement packet [] Provided Bible/devotional materials [] Provided toy/stuffed animal, coloring book to patient or family member [] Provided Communion [] Anointing/[place] [] Salvation [] Completed spiritual assessment [] Other: Impact on Illness or Injury [] Angry [] Fearful [] Anxious [] Often cries [] Exhaustion [] Unable to work [] Unable to attend scientology [] Unable to walk/stand [] Unable to read [] Unable to drive [] Unable to eat/drink [] Unable to sleep [] Unable to be with family [] Patient intubated [] Other: Summary Staff in Room Time spent with patient
[2024-11-28] MEDS: heparin 5,000 unit/mL INJ 1 mL 5000 UNIT SUBCUT ×2 (12:12→22:15)
[2024-11-28] MEDS: lisinopril 20 mg Tablet 30 MG PO (12:12)
--- NOTE | 2024-11-28 14:10 | P.PN_ITS ---
Subjective 2 Subjective: Patient was seen this morning, he is alert oriented x 2, following all commands reports fatigue, malaise, he has had a bowel movement, continues to have flank pain Vitals/I&O/Wt Last Vital Signs Temp 98.5 F 11/28/24 11:43 Pulse 80 11/28/24 11:43 Resp 17 11/28/24 11:43 BP 147/84 11/28/24 11:43 Pulse Ox 94 11/28/24 11:43 O2 Del Method Room Air 11/28/24 11:43 11/27/24 11/28/24 11/28/24 22:59 06:59 14:59 Intake Total 1240 / 1360 240 / 240 Balance 1240 / 1360 240 / 240 Weight last 48 hrs Weight 74.344 kg Weight 74.888 kg Physical Exam 2 Const: COMMON NORMALS: no acute distress ORIENTATION/CONSCIOUSNESS: Yes awake, Yes oriented to person and Yes oriented to place Resp: COMMON NORMALS: normal respiratory effort, No retractions, No use of accessory muscles and clear to auscultation bilaterally AUSCULTATION: clear to auscultation bilaterally Cardio: COMMON NORMALS: regular rate, regular rhythm, S1 normal heart sound present and S2 normal heart sound present RATE: regular rate RHYTHM: r egular rhythm HEART SOUNDS: S1 normal heart sound present and S2 normal heart sound present GI: COMMON NORMALS: Normal to inspection, nondistended, normoactive bowel sounds present and non-tender Extremity: COMMON NORMALS: no pedal edema Neuro: SENSORIUM/ORIENTATION: Yes oriented to person and Yes oriented to place Psych: COMMON NORMALS: mental status grossly normal Data 11/28/24 02:41 11/28/24 02:41 Micro: Microbiology 11/25/24 18:50 Urine Culture - Final Urine,Clean Catch A&P Assessment and plan (1) Sepsis: Sepsis features met, with elevated CRP, leukocytosis, -Source UTI, pyelonephritis (2) Pyelonephritis, acute: - Continue Rocephin 2 g IV every 24 hours - Follow blood cultures - Follow urine culture (3) Urinary tract infection: As above (4) Stenosis of cervical spine region: (5) Transaminitis: - CT scan abdomen pelvis -IMPRESSION: 1. Diffuse bladder wall thickening with pericystic fat stranding most suggestive of acute cystitis. Correlate with physical exam and laboratory findings. 2. Prostatomegaly. Correlate with PSA levels. 3. Borderline splenomegaly. 4. Hepatic steatosis. 5. Additional nonemergent findings as above. Gallbladder ultrasound US/US gall bladder [id number] IMPRESSION: 1. Surgically absent gallbladder. 2. Normal common bile duct. 3. Normal liver with no intrahepatic duct dilatation. -Acute hep panel,HIV within normal limits -Ferritin 490, iron within normal limits, likely ferritin elevated as acute phase reactant (6) Chest pain: -no chest pain (7) Panic disorder: (8) Cardiomyopathy: (9) Cervical spondylosis with myelopathy: (10) Parkinson disease: (11) Seizures: Continue home seizure medications Plan Plan for today, PT OT, continue IV antibiotics, PDMP PDMP Reviewed: Not Reviewed Attestations 2 Medical Necessity Statement*: Patient requires hospitalization for UTI requiring IV antibiotics Diagnoses Sepsis A41.9 Acute renal failure type: unspecified Pyelonephritis, acute N10 Acute pyelonephritis N10 Urinary tract infection type: acute pyelonephritis Stenosis of cervical spine region M48.02 Transaminitis R74.01 Chest pain R07.9 Chest pain type: unspecified Panic disorder F41.0 Cardiomyopathy I42.9 Cervical spondylosis with myelopathy M47.12 Parkinson disease G20.A1 Dyskinesia presence: without dyskinesia Seizures R56.9
[2024-11-28] MEDS: sodium chloride 0.9% 1,000 ML 50 ML IV (17:36)
[2024-11-28] MEDS: ATORVASTATIN 10 MG TABLET 20 MG PO (22:14)
[2024-11-28] MEDS: cefTRIAXone 2,000 mg SDV 2000 MG IVP (22:14)
[2024-11-28 22:57] LABS: Glucose Point of Care 92 mg/dL (70-110)
[2024-11-29] VITALS (8 sets, daily range): BP systolic 147–185; BP diastolic 64–74; PULSE 73–88; RESP 15–19; TEMP 36.5–38.1; O2SAT 93–96
[2024-11-29] MEDS: acetaminophen 325 mg Tablet 650 MG PO (04:32)
[2024-11-29 04:41] LABS: Basophils % 0.5 %; Eosinophils # 0.3 10^3/uL (0.0-0.8); Hematocrit 34.1 % (37-53); Lymphocytes # 0.6 10^3/uL (0.8-4.8); Lymphocytes % 9.8 %; Mean Corpuscular HGB Conc 32.8 g/dL (30-55); Mean Corpuscular Hemoglobin 31.4 pg (27-33); Mean Corpuscular Volume 95.5 fl (82-101); Mean Platelet Volume 11.6 fL (7.4-10.4); Monocytes # 0.7 10^3/uL (0.2-0.9); Monocytes % 10.7 %; Neutrophils # 4.78 10^3/uL (1.8-7.7); Neutrophils % 74.5 %; Nucleated Red Blood Cells % 0 %; Platelet Count 117 10^3/cmm (157-399); Red Blood Count 3.57 10^6/uL (3.85-5.65); Red Cell Distribution Width 13.2 % (12.1-15.1); White Blood Count 6.42 10^3/uL (3.29-11.43)
[2024-11-29 04:59] LABS: Alanine Aminotransferase 75 U/L (0-41); Albumin Level 2.8 g/dL (3.5-5.2); Alkaline Phosphatase 484 U/L (40-130); Anion Gap 13.4 (5-19); Aspartate Amino Transferase 89 U/L (0-40); Blood Urea Nitrogen 9 mg/dL (8-23); Calcium 8.1 mg/dL (8.5-10.5); Carbon Dioxide 27 mmol/L (22-29); Chloride 104 mmol/L (98-107); Creatinine Clr Calc Pharmacy 92.1583; Globulin 2.7 g/dL (1.3-4.6); Glomerular Filtration Rate 135.2 mL/min (90-130); Glucose 95 mg/dL (65-115); Osmolality Calculated 290 mOsm/kg (285-295); Potassium 3.4 mmol/L (3.5-5.1); Sodium 141 mmol/L (136-145); Total Bilirubin 0.4 mg/dL (0.15-1.2); Total Protein 5.5 g/dL (6.6-8.7)
[2024-11-29] MEDS: sodium chloride 0.9% 1,000 ML 999 ML IV (05:23)
--- NOTE | 2024-11-29 05:25 | XRR_ITS ---
PROCEDURE INFORMATION: Exam: XR Chest Exam date and time: 11/29/2024 5:48 AM Age: 64 years old Clinical indication: Shortness of breath; SOB with diaphoresis. ; Additional info: Hypoxemia TECHNIQUE: Imaging protocol: Radiologic exam of the chest. Views: 1 view. COMPARISON: CT chest abdpel w/*[id number] 11/25/2024 6:06 PM FINDINGS: Lungs: No consolidation. Pleural spaces: No sizable pleural effusion or pneumothorax. Heart/Mediastinum: No cardiomegaly. Bones/joints: Advanced degenerative changes of the right shoulder. XR/XR chest 1V portable [id number] IMPRESSION: No acute intrathoracic findings.
[2024-11-29 05:43] LABS: Magnesium 1.7 mg/dL (1.7-2.3); Phosphorus 3.4 mg/dL (2.5-4.5)
[2024-11-29] MEDS: magnesium sulfate premix 2 GM/50 ML PIGGYBACK IV (06:21)
[2024-11-29] MEDS: escitalopram 10 mg Tablet 20 MG PO (06:25)
--- NOTE | 2024-11-29 06:31 | PC.NURSE ---
Patient started complaining of not feeling well at 2225. Nurse checked vitals and they were as follows. BP 179/77, resp 15, hr 87 and o2 at 90% RA. Nurse placed patient on 2L NC and o2 came up to 94%. Nurse continued to monitor patient throughout shift. At 0400 table hand advised nurse that patients temp had gone up to 100.6. This nurse administered po tylenol and continued to monitor patient. When nurse went to rechecked patients temp he started complaining of pain around his umbilical area. Nurse contacted Dr. Sharp and advised her of patients complaint of pain. Dr. Sharp ordered a stat chest x-ray, labs for magnesium and lactic acid, and a 1L bolus of NS. Nurse has continued to monitor patients progress. Magnesium resulted at 1.[address] Sharp ordered 2gm of magnesium sulfate at 50ml/hr. This nurse started magnesium and will continue to monitor patient for remainder of shift.
[2024-11-29 07:05] LABS: Lactate (Lactic Acid level) 0.7 mmol/L (0.5-2.2)
[2024-11-29 09:32] LABS: Procalcitonin 0.26 ng/mL (0-0.5)
[2024-11-29 09:50] LABS: C Reactive Protein 64.9 mg/L (0.0-4.9)
[2024-11-29] MEDS: cholecalciferol (vitamin D3) 1,000 unit Tablet 1000 UNIT PO (10:10)
[2024-11-29] MEDS: carbidopa-levodopa 25-100mg Tablet 1 EACH PO ×3 (10:10→18:15)
[2024-11-29] MEDS: aspirin 81 mg EC Tablet PO (10:10)
[2024-11-29] MEDS: pantoprazole DR 40 mg Tablet PO (10:10)
[2024-11-29] MEDS: divalproex ER 500 mg Tablet (24H) PO (10:10)
[2024-11-29] MEDS: lisinopril 20 mg Tablet 30 MG PO (10:11)
[2024-11-29] MEDS: allopurinol 300 mg Tablet PO (10:11)
[2024-11-29] MEDS: potassium chloride ER 20 mEq Tablet PO (10:16)
[2024-11-29] MEDS: heparin 5,000 unit/mL INJ 1 mL 5000 UNIT SUBCUT ×2 (10:16→23:17)
[2024-11-29 11:59] LABS: Lactic Sepsis W/Reflex 0.7 mmol/L (0.5-2.2)
[2024-11-29] MEDS: sodium chloride 0.9% 1,000 ML 50 ML IV (14:19)
--- NOTE | 2024-11-29 17:02 | P.PN_ITS ---
Subjective 2 Subjective: Patient was seen this morning, he is alert to person, to place, not to time he follows all commands he reports not feeling well Vitals/I&O/Wt Last Vital Signs Temp 97.7 F 11/29/24 12:17 Pulse 73 11/29/24 12:17 Resp 19 H 11/29/24 12:17 BP 149/74 11/29/24 12:17 Pulse Ox 95 11/29/24 12:17 O2 Del Method Room Air 11/29/24 12:17 O2 Flow Rate 2 11/29/24 05:39 11/29/24 11/29/24 11/29/24 06:59 14:59 22:59 Intake Total 1589.167 / 3143.334 530 / 530 Balance 1589.167 / 3143.334 530 / 530 Weight last 48 hrs Weight 75.705 kg Weight 74.344 kg Physical Exam 2 Const: COMMON NORMALS: no acute distress Resp: COMMON NORMALS: normal respiratory effort, No retractions, No use of accessory muscles and clear to auscultation bilaterally AUSCULTATION: clear to auscultation bilaterally Cardio: COMMON NORMALS: regular rate, regular rhythm, S1 normal heart sound present and S2 normal heart sound present RATE: regular rate RHYTHM: r egular rhythm HEART SOUNDS: S1 normal heart sound present and S2 normal heart sound present GI: OTHER: Abdomen soft, slightly distended, good bowel sounds in all 4 quadrants, no guarding, no rebound, no rigidity, does have diffuse abdominal tenderness Extremity: COMMON NORMALS: no pedal edema Psych: COMMON NORMALS: mental status grossly normal Data 11/29/24 04:29 11/29/24 04:29 Micro: Microbiology 11/29/24 06:28 Blood Culture - Preliminary Blood SPECIMEN COLLECTED 11/29/24 06:25 Blood Culture - Preliminary Blood SPECIMEN COLLECTED A&P Assessment and plan (1) Sepsis: Sepsis features met, with elevated CRP, leukocytosis, resolving -Source UTI, pyelonephritis (2) Pyelonephritis, acute: - Continue Rocephin 2 g IV every 24 hours - Follow blood cultures, so far no growth - Follow urine culture, so far no growth (3) Urinary tract infection: As above (4) Stenosis of cervical spine region: (5) Transaminitis: - CT scan abdomen pelvis -IMPRESSION: 1. Diffuse bladder wall thickening with pericystic fat stranding most suggestive of acute cystitis. Correlate with physical exam and laboratory findings. 2. Prostatomegaly. Correlate with PSA levels. 3. Borderline splenomegaly. 4. Hepatic steatosis. 5. Additional nonemergent findings as above. Gallbladder ultrasound US/US gall bladder [id number] IMPRESSION: 1. Surgically absent gallbladder. 2. Normal common bile duct. 3. Normal liver with no intrahepatic duct dilatation. -Acute hep panel,HIV within normal limits -Ferritin 490, iron within normal limits, likely ferritin elevated as acute phase reactant (6) Chest pain: -no chest pain (7) Panic disorder: (8) Cardiomyopathy: (9) Cervical spondylosis with myelopathy: (10) Parkinson disease: (11) Seizures: Plan Patient had persistent complaints of feet fatigue, malaise, low-grade fever overnight - Repeat inflammatory markers, lactic acid, CT scan abdomen pelvis, CT lumbar spine, sed rate, bowel regimen, up out of bed PDMP PDMP Reviewed: Not Reviewed Attestations 2 Medical Necessity Statement*: Patient has persistent complaints of fatigue, malaise, with pyelonephritis Diagnoses Sepsis A41.9 Acute renal failure type: unspecified Pyelonephritis, acute N10 Acute pyelonephritis N10 Urinary tract infection type: acute pyelonephritis Stenosis of cervical spine region M48.02 Transaminitis R74.01 Chest pain R07.9 Chest pain type: unspecified Panic disorder F41.0 Cardiomyopathy I42.9 Cervical spondylosis with myelopathy M47.12 Parkinson disease G20.A1 Dyskinesia presence: without dyskinesia Seizures R56.9
--- NOTE | 2024-11-29 17:03 | CTR_ITS ---
PROCEDURE INFORMATION: Exam: CT Lumbar Spine Without Contrast Exam date and time: 11/29/2024 5:19 PM Age: 64 years old Clinical indication: Low back pain TECHNIQUE: Imaging protocol: Computed tomography of the lumbar spine without contrast. Radiation optimization: All CT scans at this facility use at least one of these dose optimization techniques: automated exposure control; mA and/or kV adjustment per patient size (includes targeted exams where dose is matched to clinical indication); or iterative reconstruction. COMPARISON: CR XR lumbar spine min 4V [id number] 09/29/2024 8:49 AM RADIATION DOSE METRICS: Total DLP (mGy-cm): 591.7 FINDINGS: Bones/joints: Anterior bridging osteophyte at L5-S1. No acute lumbar spine fracture or listhesis. The disc spaces are well-maintained. Soft tissues: Unremarkable. CT/CT lumbar spine wo con* [id number] IMPRESSION: 1. Anterior bridging osteophyte at L5-S1. 2. No acute lumbar spine fracture or listhesis. 3. The disc spaces are well-maintained.
--- NOTE | 2024-11-29 17:03 | CTR_ITS ---
PROCEDURE INFORMATION: Exam: CT Abdomen And Pelvis Without Contrast Exam date and time: 11/29/2024 5:19 PM Age: 64 years old Clinical indication: Abdominal pain; Generalized; Additional info: Abominal pain TECHNIQUE: Imaging protocol: Computed tomography of the abdomen and pelvis without contrast. Radiation optimization: All CT scans at this facility use at least one of these dose optimization techniques: automated exposure control; mA and/or kV adjustment per patient size (includes targeted exams where dose is matched to clinical indication); or iterative reconstruction. COMPARISON: CR XR hip BI m 5V wo/w pel* [id number] 09/29/2024 8:49 AM RADIATION DOSE METRICS: Total DLP (mGy-cm): 591.7 FINDINGS: Pleural spaces: Partially visualized bilateral pleural effusions. Coronary arteries: Coronary arterial atherosclerotic calcifications are present. Liver: Normal. No mass. Gallbladder and biliary ducts: The gallbladder is absent. Pancreas: Normal. No ductal dilation. Spleen: The spleen is enlarged measuring up to 15.3 cm in length. Adrenal glands: Normal. No mass. Kidneys and ureters: Atrophy of the left kidney. The left kidney is absent. Stomach and bowel: Unremarkable. No obstruction. No mucosal thickening. Appendix: No evidence of appendicitis. Intraperitoneal space: Unremarkable. No free air. No significant fluid collection. Vasculature: Unremarkable. No abdominal aortic aneurysm. Lymph nodes: Unremarkable. No enlarged lymph nodes. Urinary bladder: Subtle bladder wall thickening with adjacent fat stranding which while nonspecific can be seen the setting of cystitis. Correlate with UA. Reproductive: Unremarkable as visualized. Bones/joints: Pars defect on the right at L3-L4. Soft tissues: Fat containing left inguinal hernia. Other findings: . CT/CT abdomen pelvis wo con [id number] IMPRESSION: 1. Subtle bladder wall thickening with adjacent fat stranding which while nonspecific can be seen the setting of cystitis. Correlate with UA. 2. No bowel obstruction or inflammatory process associated with the bowel. 3. No free air or significant free fluid in the abdomen or pelvis. 4. No evidence of appendicitis.
[2024-11-29 17:20] LABS: Erythrocyte Sedimentation Rate 41 mm/hr (0-10)
[2024-11-29] MEDS: polyethylene glycol 3350 Pkt 17 gm PO (18:15)
[2024-11-29] MEDS: sennosides-docusate Tablet 2 TAB PO (18:15)
[2024-11-29] MEDS: ATORVASTATIN 10 MG TABLET 20 MG PO (21:23)
[2024-11-29] MEDS: sennosides 8.6 mg Tablet 17.2 MG PO (21:23)
[2024-11-29] MEDS: cefTRIAXone 2,000 mg SDV 2000 MG IVP (23:17)
[2024-11-30 00:58] VITALS: BP 143/70; PULSE 83; RESP 17; TEMP 36.8; O2SAT 91
[2024-11-30] MEDS: HYDROcodone-acetaminophen 5-325 mg Tablet 1 TAB PO (04:37)
[2024-11-30 05:39] VITALS: PULSE 76
[2024-11-30 05:43] VITALS: BP 151/65; PULSE 83; RESP 17; TEMP 36.9; O2SAT 92
[2024-11-30] MEDS: escitalopram 10 mg Tablet 20 MG PO (06:06)
[2024-11-30 06:20] LABS: Basophils % 0.5 %; Eosinophils # 0.2 10^3/uL (0.0-0.8); Eosinophils % 2.5 %; Lymphocytes # 0.6 10^3/uL (0.8-4.8); Lymphocytes % 7.6 %; Mean Corpuscular HGB Conc 33.2 g/dL (30-55); Mean Corpuscular Hemoglobin 31.2 pg (27-33); Mean Corpuscular Volume 93.9 fl (82-101); Mean Platelet Volume 11.2 fL (7.4-10.4); Monocytes # 0.8 10^3/uL (0.2-0.9); Monocytes % 10.1 %; Neutrophils # 6.08 10^3/uL (1.8-7.7); Neutrophils % 78.7 %; Nucleated Red Blood Cells % 0 %; Platelet Count 127 10^3/cmm (157-399); Red Blood Count 3.62 10^6/uL (3.85-5.65); White Blood Count 7.73 10^3/uL (3.29-11.43)
[2024-11-30 06:41] LABS: Alanine Aminotransferase 112 U/L (0-41); Alkaline Phosphatase 578 U/L (40-130); Anion Gap 13.5 (5-19); Aspartate Amino Transferase 77 U/L (0-40); Blood Urea Nitrogen 8 mg/dL (8-23); Calcium 8.4 mg/dL (8.5-10.5); Carbon Dioxide 27 mmol/L (22-29); Chloride 105 mmol/L (98-107); Creatinine Clr Calc Pharmacy 92.6542; Globulin 2.9 g/dL (1.3-4.6); Glomerular Filtration Rate 113.2 mL/min (90-130); Glucose 99 mg/dL (65-115); Osmolality Calculated 292 mOsm/kg (285-295); Potassium 3.5 mmol/L (3.5-5.1); Sodium 142 mmol/L (136-145); Total Bilirubin 0.5 mg/dL (0.15-1.2); Total Protein 5.9 g/dL (6.6-8.7)
[2024-11-30 06:49] LABS: Magnesium 1.8 mg/dL (1.7-2.3); Phosphorus 2.9 mg/dL (2.5-4.5)
[2024-11-30 07:16] VITALS: BP 160/70; PULSE 76; RESP 16; TEMP 37.2; O2SAT 93
--- NOTE | 2024-11-30 08:39 | PC.SOCIAL ---
IMM Update Pg. 2 of IMM updated. Copy provided at bedside.
[2024-11-30] MEDS: aspirin 81 mg EC Tablet PO (10:12)
[2024-11-30] MEDS: allopurinol 300 mg Tablet PO (10:12)
[2024-11-30] MEDS: divalproex ER 500 mg Tablet (24H) PO (10:13)
[2024-11-30] MEDS: cholecalciferol (vitamin D3) 1,000 unit Tablet 1000 UNIT PO (10:13)
[2024-11-30] MEDS: sennosides-docusate Tablet 2 TAB PO (10:13)
[2024-11-30] MEDS: pantoprazole DR 40 mg Tablet PO (10:13)
[2024-11-30] MEDS: lisinopril 20 mg Tablet 30 MG PO (10:13)
[2024-11-30] MEDS: carbidopa-levodopa 25-100mg Tablet 1 EACH PO ×2 (10:13→12:06)
[2024-11-30] MEDS: polyethylene glycol 3350 Pkt 17 gm PO (10:14)
[2024-11-30] MEDS: sodium chloride 0.9% 1,000 ML 50 ML IV (10:17)
--- NOTE | 2024-11-30 11:06 | PM.DCS ---
Discharge Providers Date of Admission: 11/25/24 19:31 Date of Discharge: November 30, 2024 Attending Provider at Admission: Kelsey Skinner MD Attending Provider at Discharge: Delta Damon MD Primary Care Provider: Matthew Sanchez MD Diagnoses at Discharge Discharge Diagnosis (1) Sepsis: Status: Acute Qualifiers: Acute renal failure type: unspecified (2) Pyelonephritis, acute: Status: Acute (3) Urinary tract infection: Status: Acute Qualifiers: Urinary tract infection type: acute pyelonephritis Qualified Code(s): N10 - Acute pyelonephritis (4) Stenosis of cervical spine region: Status: Acute (5) Transaminitis: Status: Acute (6) Chest pain: Status: Acute Qualifiers: Chest pain type: unspecified Qualified Code(s): R07.9 - Chest pain, unspecified (7) Panic disorder: Status: Acute (8) Cardiomyopathy: Status: Acute (9) Cervical spondylosis with myelopathy: Status: Acute (10) Parkinson disease: Status: Acute Qualifiers: Dyskinesia presence: without dyskinesia (11) Seizures: Status: Acute Reason for Visit Reason for Visit: abnormal labs and fever Hospital Course Hospital Course This is a 64-year-old female with a past medical history of developmental delay, hypertension, history of seizure disorder, history of neck surgery, panic disorder, Parkinson disease who presents to [facility] due to fever, abdominal pain Patient was admitted to [facility] for sepsis secondary to acute pyelonephritis, received broad-spectrum antibiotic therapy, blood cultures so far no growth, urine culture so far no growth, remains afebrile for the last 36 hours, will follow clinically improving, will be discharged on cefdinir, with close follow-up with primary care provider as outpatient For patient's transaminitis, CT scan abdomen pelvis -IMPRESSION: 1. Diffuse bladder wall thickening with pericystic fat stranding most suggestive of acute cystitis. Correlate with physical exam and laboratory findings. 2. Prostatomegaly. Correlate with PSA levels. 3. Borderline splenomegaly. 4. Hepatic steatosis. 5. Additional nonemergent findings as above. Gallbladder ultrasound US/US gall bladder [id number] IMPRESSION: 1. Surgically absent gallbladder. 2. Normal common bile duct. 3. Normal liver with no intrahepatic duct dilatation. -Acute hep panel,HIV within normal limits -Ferritin 490, iron within normal limits, likely ferritin elevated as acute phase reactant - Will have to follow-up with primary care provider to monitor LFTs Due to persistent complaints of fatigue, malaise, patient had repeat CT scan abdomen, CT lumbar spine without any acute findings. Inflammatory markers downward trending, has remained afebrile for the last 36 hours. Patient does have borderline splenomegaly on the CT scan, no complaints of left upper quadrant pain on examination, no complaints of sore throat, no new rashes with antibiotic therapy, continue to monitor for fevers as outpatient. For patient's prostatomegaly, increased risk of further UTIs in the future, follow-up with urology as outpatient Physical Exam Const: COMMON NORMALS: no acute distress and patient oriented x3 Resp: COMMON NORMALS: normal respiratory effort, No retractions, No use of accessory muscles and clear to auscultation bilaterally AUSCULTATION: clear to auscultation bilaterally Cardio: COMMON NORMALS: regular rate, regular rhythm, S1 normal heart sound present and S2 normal heart sound present RATE: regular rate RHYTHM: regular rhythm HEART SOUNDS: S1 normal heart sound present and S2 normal heart sound present GI: COMMON NORMALS: Normal to inspection, nondistended, normoactive bowel sounds present and non-tender Extremity: COMMON NORMALS: no pedal edema Neuro: COMMON NORMALS: patient oriented x3 Psych: COMMON NORMALS: mental status grossly normal Discharge Data Studies Completed and Pending Completed Studies During Hospitalization Category Date Time Status CT abdomen pelvis wo con [id number] Routine Cat Scan 11/29/24 17:[address] chest abdomen pelvis [CT chest abdpel w/*[id number] Cat Scan 11/25/24 16:12 Completed ] Stat CT lumbar spine wo con* [id number] Routine Cat Scan 11/29/24 17:03 Completed CXRP [XR chest 1V portable [id number]] Routine Exams 11/29/24 05:25 Completed XR chest 1V portable [id number] Stat Exams 11/25/24 15:56 Completed US gall bladder [id number] Routine Ultrasound 11/26/24 04:43 Completed Pending at discharge Category Date Time Status Blood Culture Stat Lab 11/25/24 16:12 Results Blood Culture Stat Lab 11/26/24 06:06 Results Blood Culture Stat Lab 11/29/24 06:28 Results CBC Auto Diff [Complete Blood Count w/Auto] AM LABS Lab 12/01/24 04:00 Ordered CBC Auto Diff [Complete Blood Count w/Auto] AM LABS Lab 12/02/24 04:00 Ordered CMP [Comprehensive Metabolic Panel] AM LABS Lab 12/01/24 04:00 Ordered CMP [Comprehensive Metabolic Panel] AM LABS Lab 12/02/24 04:00 Ordered Magnesium AM LABS Lab 12/01/24 04:00 Ordered Magnesium AM LABS Lab 12/02/24 04:00 Ordered Phosphorus AM LABS Lab 12/01/24 04:00 Ordered Phosphorus AM LABS Lab 12/02/24 04:00 Ordered Radiology Impressions Chest/Abdomen/Pelvis CT 11/25/24 16:12 IMPRESSION: 1. No acute findings in the chest. 2. Bilateral thyroid nodules as detailed above. IMPRESSION: 1. Diffuse bladder wall thickening with pericystic fat stranding most suggestive of acute cystitis. Correlate with physical exam and laboratory findings. 2. Prostatomegaly. Correlate with PSA levels. 3. Borderline splenomegaly. 4. Hepatic steatosis. 5. Additional nonemergent findings as above. Gallbladder Ultrasound 11/26/24 04:43 IMPRESSION: 1. Surgically absent gallbladder. 2. Normal common bile duct. 3. Normal liver with no intrahepatic duct dilatation. Chest X-Ray 11/29/24 05:25 IMPRESSION: No acute intrathoracic findings. Abdomen/Pelvis CT 11/29/24 17:03 IMPRESSION: 1. Subtle bladder wall thickening with adjacent fat stranding which while nonspecific can be seen the setting of cystitis. Correlate with UA. 2. No bowel obstruction or inflammatory process associated with the bowel. 3. No free air or significant free fluid in the abdomen or pelvis. 4. No evidence of appendicitis. Lumbar Spine CT 11/29/24 17:03 IMPRESSION: 1. Anterior bridging osteophyte at L5-S1. 2. No acute lumbar spine fracture or listhesis. 3. The disc spaces are well-maintained. Laboratory Results WBC 7.73 10^3/uL (3.29-11.43) 11/30/24 06:05 RBC 3.62 10^6/uL (3.85-5.65) L 11/30/24 06:05 Hgb 11.30 g/dL (11.27-16.99) 11/30/24 06:05 Hct 34.0 % (37-53) L 11/30/24 06:05 MCV 93.9 fl (82-101) 11/30/24 06:05 MCH 31.2 pg (27-33) 11/30/24 06:05 MCHC 33.2 g/dL (30-55) 11/30/24 06:05 RDW 13.0 % (12.1-15.1) 11/30/24 06:05 Plt Count 127 10^3/cmm (157-399) L 11/30/24 06:05 MPV 11.2 fL (7.4-10.4) H 11/30/24 06:05 Neut % (Auto) 78.7 % 11/30/24 06:05 Lymph % (Auto) 7.6 % 11/30/24 06:05 [place] % (Auto) 10.1 % 11/30/24 06:05 Eos % (Auto) 2.5 % 11/30/24 06:05 Baso % (Auto) 0.5 % 11/30/24 06:05 Neut # (Auto) 6.08 10^3/uL (1.8-7.7) 11/30/24 06:05 Lymph # (Auto) 0.6 10^3/uL (0.8-4.8) L 11/30/24 06:05 [place]key # (Auto) 0.8 10^3/uL (0.2-0.9) 11/30/24 06:05 Eos # (Auto) 0.2 10^3/uL (0.0-0.8) 11/30/24 06:05 Baso # (Auto) 0.0 10^3/uL (0.0-0.1) 11/30/24 06:05 Nucleated RBC % (auto) 0 % 11/30/24 06:05 Nucleated RBCs # 0.0 /100WBC 11/30/24 06:05 ESR 41 mm/hr (0-10) H 11/29/24 04:29 PT 12.70 SECONDS (12.1-14.9) 11/28/24 02:41 INR 0.89 (0.8-1.2) 11/28/24 02:41 Sodium 142 mmol/L (136-145) 11/30/24 06:05 Potassium 3.5 mmol/L (3.5-5.1) 11/30/24 06:05 Chloride 105 mmol/L (98-107) 11/30/24 06:05 Carbon Dioxide 27 mmol/L (22-29) 11/30/24 06:05 Anion Gap 13.5 (5-19) 11/30/24 06:05 BUN 8 mg/dL (8-23) 11/30/24 06:05 Creatinine 0.7 mg/dL (0.7-1.2) 11/30/24 06:05 GFR Calculation 113.2 mL/min (90-130) 11/30/24 06:05 Glucose 99 mg/dL (65-115) 11/30/24 06:05 POC Glucose 92 mg/dL (70-110) 11/28/24 22:54 Calculated Osmolality 292 mOsm/kg (285-295) 11/30/24 06:05 Lactic Acid 0.7 mmol/L (0.5-2.2) 11/29/24 11:18 Lactate 0.7 mmol/L (0.5-2.2) 11/29/24 06:25 Calcium 8.4 mg/dL (8.5-10.5) L 11/30/24 06:05 Phosphorus 2.9 mg/dL (2.5-4.5) 11/30/24 06:05 Magnesium 1.8 mg/dL (1.7-2.3) 11/30/24 06:05 Iron 13 ug/dL (59-158) L 11/27/24 05:55 TIBC 126 mcg/dl 11/27/24 05:55 % Saturation 10.3 % (20-50) L 11/27/24 05:55 Unsat Iron Binding 113 ug/dL (112-347) 11/27/24 05:55 Ferritin 490 ng/mL (30-400) H 11/26/24 13:22 Total Bilirubin 0.5 mg/dL (0.15-1.2) 11/30/24 06:05 GGT 94 U/L (8-61) H 11/26/24 06:00 AST 77 U/L (0-40) H 11/30/24 06:05 ALT 112 U/L (0-41) H 11/30/24 06:05 Alkaline Phosphatase 578 U/L (40-130) H 11/30/24 06:05 C-Reactive Protein 64.9 mg/L (0.0-4.9) H 11/29/24 04:29 Total Protein 5.9 g/dL (6.6-8.7) L 11/30/24 06:05 Albumin 3.0 g/dL (3.5-5.2) L 11/30/24 06:05 Globulin 2.9 g/dL (1.3-4.6) 11/30/24 06:05 Triglycerides 97 mg/dL (0-150) 11/26/24 06:00 Cholesterol 62 mg/dL (0-200) 11/26/24 06:00 LDL Cholesterol, Calc 13 mg/dL (50-129) L 11/26/24 06:00 HDL Cholesterol 30 mg/dL (60-100) L 11/26/24 06:00 LDL/HDL Ratio 0.43 RATIO (0.00-3.22) 11/26/24 06:00 Cholesterol/HDL Ratio 2.07 mg/dL (1.0-5.00) 11/26/24 06:00 Lipase 11 U/L (13-60) L 11/26/24 06:00 Procalcitonin 0.26 ng/mL (0-0.5) 11/29/24 04:29 Urine Color [place] (Yellow) A 11/25/24 18:50 Urine Appearance Cloudy (CLEAR) A 11/25/24 18:50 Urine pH 6.0 (5-7) 11/25/24 18:50 Ur Specific [place] 1.064 (1.005-1.030) H 11/25/24 18:50 Urine Protein 2+ (Negative) A 11/25/24 18:50 Urine Glucose (UA) Negative (Normal) 11/25/24 18:50 Urine Ketones Trace (Negative) 11/25/24 18:50 Urine Blood 3+ (Negative) A 11/25/24 18:50 Urine Nitrate Positive (Negative) A 11/25/24 18:50 Urine Bilirubin 2+ (Negative) H 11/25/24 18:50 Urine Urobilinogen 2.0 mg/dL (Negative) H 11/25/24 18:50 Ur Leukocyte Esterase 2+ (Negative) A 11/25/24 18:50 Urine RBC 51-100 /hpf (0-2) H 11/25/24 18:50 Urine WBC >100 /hpf (0-5) H 11/25/24 18:50 Ur Squamous Epith Cells 0-5 /hpf (0-5) 11/25/24 18:50 Amorphous Sediment Not Reportable 11/25/24 18:50 Urine Bacteria None seen /hpf (NONE) 11/25/24 18:50 Hyaline Casts 0.81 /lpf 11/25/24 18:50 Salicylates < 0.3 mg/dL (3-10) L 11/26/24 13:22 Hepatitis A IgM Ab Non-reactive (Nonreactive) 11/26/24 13:22 Hep Bs Antigen Non-reactive (Nonreactive) 11/26/24 13:22 Hep B Core IgM Ab Non-reactive (Nonreactive) 11/26/24 13:22 Hepatitis C Antibody Non-reactive (Nonreactive) 11/26/24 13:22 HIV 1&2 Ab & HIV 1 Ag Non-reactive (Non-Reactiv) 11/26/24 13:22 HIV 1&2 Antibody Non-reactive (Non-Reactiv) 11/26/24 13:22 Influenza A (PCR) Negative (Negative) 11/25/24 17:33 Influenza Type B (PCR) Negative (Negative) 11/25/24 17:33 RSV (PCR) Negative (Negative) 11/25/24 17:33 SARS-CoV-2 (PCR) Negative (Negative) 11/25/24 17:33 Vitals Last Vital Signs Temp 99.0 F 11/30/24 07:16 Pulse 76 11/30/24 07:16 Resp 16 11/30/24 07:16 BP 160/70 11/30/24 07:16 Pulse Ox 93 11/30/24 07:16 O2 Del Method Room Air 11/30/24 07:16 O2 Flow Rate 2 11/29/24 05:39 Discharge Plan Discharge Patient Disposition: Home Condition: Stable Prescriptions: New cefdinir 300 mg capsule 300 mg PO Q12H 7 Days Qty: 14 0RF Continued allopurinol 300 mg tablet 300 mg PO DAILY@07 metoprolol succinate 25 mg tablet extended release 24 hr 25 mg PO DAILY@07 rosuvastatin 20 mg tablet 20 mg PO BEDTIME Arnuity Ellipta 100 mcg/actuation blister with device 1 inh inhalation DAILY Thayer Cough Drops 3.2 mg lozenge 3.2 mg mucous membrane Q4H PRN (Reason: cough or throat irritation) divalproex [Depakote ER] 500 mg tablet extended release 24 hr 500 mg PO DAILY Qty: 30 5RF cyanocobalamin (vitamin B-12) 1,000 mcg capsule 1,000 mcg PO DAILY lisinopril 30 mg tablet 30 mg PO DAILY escitalopram oxalate [Lexapro] 20 mg tablet 20 mg PO DAILY@07 Qty: 30 11RF (DME) Bone Growth Stimulator See Rx Instructions .Route .MEDSUPPLY Qty: 1 0RF Rx Instructions: As directed carbidopa-levodopa 25-100 mg tablet See Rx Instructions .ROUTE .COMPLEX Qty: 90 5RF Dose Instruction: take 1 tablet BY MOUTH THREE TIMES DAILY with meals Rx Instructions: take 1 tablet BY MOUTH THREE TIMES DAILY with meals acetaminophen 500 mg Tablet 500 - 1,000 mg PO .Q4-6H PRN (Reason: Pain) bismuth subsalicylate [Pepto-Bismol] 262 mg/15 mL Suspension 524 mg PO Q4H PRN (Reason: Diarrhea) omeprazole 20 mg Capsule,Delayed Release(Dr/Ec) 20 mg PO DAILY@07 cholecalciferol (vitamin D3) [Vitamin D3] 25 mcg (1,000 unit) Tablet 25 mcg PO DAILY@07 triamcinolone acetonide 0.1 % cream 1 applic TOPICAL BID PRN (Reason: dry skin or itching) hydrocodone-acetaminophen 5-325 mg tablet 1 - 2 tab PO .Q4-6H PRN (Reason: Pain) ondansetron HCl 4 mg tablet 4 mg PO Q8H PRN (Reason: nausea and vomiting) Qty: 14 0RF aspirin [Nancy Low Dose Aspirin] 81 mg Tablet,Delayed Release (Dr/Ec) 81 mg PO DAILY Discharge Orders: Discharge Order (Routine); Ordered 11/30/24 Ordered By: Delta Damon Referrals: Matthew Sanchez MD [Primary Care Provider, Family Practice] - 12/07/24 11:30 am Job Crowley MD [Referring, Urology] - 1-3 days Discharge Diet: Cardiac Discharge Activity: Resume usual activity Patient Instructions: Opioid Safety Activity Restrictions/Additional Instructions: - Monitor for fevers if so please come back to the emergency room - For your enlarged prostate please follow-up with primary care, follow-up with urology - For your prostatomegaly please follow-up with primary care provider for PSA testing - For your splenomegaly, monitor for left upper quadrant abdominal pain, avoid contact sports - If you develop left upper quadrant pain please come back to the emergency room Discharge Attestations Time Spent in Discharge Care*: greater than 30 min Quality Metrics Clinical Quality Measures [ No reported AMI, CVA or VTE this stay] Coding Level of Care Code 08132 Total time (in minutes) for Discharge: 45 Diagnoses Sepsis A41.9 Acute renal failure type: unspecified Pyelonephritis, acute N10 Acute pyelonephritis N10 Urinary tract infection type: acute pyelonephritis Stenosis of cervical spine region M48.02 Transaminitis R74.01 Chest pain R07.9 Chest pain type: unspecified Panic disorder F41.0 Cardiomyopathy I42.9 Cervical spondylosis with myelopathy M47.12 Parkinson disease G20.A1 Dyskinesia presence: without dyskinesia Seizures R56.9
[2024-11-30 11:31] VITALS: BP 167/82; PULSE 70; RESP 14; TEMP 36.9; O2SAT 92
[2024-11-30] MEDS: heparin 5,000 unit/mL INJ 1 mL 5000 UNIT SUBCUT (12:06)
[2024-11-30 12:28] LABS: Monoscreen Negative (Negative)
[2024-11-30 12:52] VITALS: BP 167/82; PULSE 70; RESP 14; TEMP 36.9; O2SAT 92
[2024-12-01 15:51] LABS: EBV IGM TEST <36.00 U/mL; EBV Viral Capsid AB IGM <36.00 U/mL
== END 2024-11-30 12:53 | disposition home or self-care (01) | DRG 872 ==
LOC: ER 19:32 → MEDSURG 20:22
PROVIDERS: Internal Medicine; Admitting Provider Internal Medicine; Emergency Provider Emergency Medicine; PCP Family Medicine; Visit Provider Family Medicine
DX: A41.9 Sepsis, unspecified organism (principal); N10 Acute pyelonephritis; G99.2 Myelopathy in diseases classified elsewhere; I42.9 Cardiomyopathy, unspecified; M48.02 Spinal stenosis, cervical region; R74.01 Elevation of levels of liver transaminase levels; R07.9 Chest pain, unspecified; F41.0 Panic disorder [episodic paroxysmal anxiety]; G20.A1 Parkinson's disease without dyskinesia, without mention of fluctuations; G40.909 Epilepsy, unspecified, not intractable, without status epilepticus; F89 Unspecified disorder of psychological development; I10 Essential (primary) hypertension; N40.0 Benign prostatic hyperplasia without lower urinary tract symptoms; Z79.82 Long term (current) use of aspirin
CPT/HCPCS: 36415; 36416; 51798; 71045; 71260; 72131; 74176; 74177; 76705; 80053; 80061; 80074; 80307; 81001; 82728; 82962; 82977; 83540; 83550; 83605; 83690; 83735; 84100; 84145; 85025; 85610; 85651; 86140; 86308; 86664; 86665; 87040; 87086; 87637; 87806; 92610; 93005; 96365; 96372; 96375; 97162; 97165; 97530; 97535; 99285; J0692; J0696; J1644; J2020; J2405; J3475; J7030; J9999

== ENCOUNTER 2025-03-10 17:45 | Emergency (ER) | payer MEDICARE, MEDICAID, SELFPAY ==
[2025-03-10 17:44] VITALS: BP 134/77; PULSE 74; RESP 18; TEMP 36.7; O2SAT 96
[2025-03-10 17:49] VITALS: BP 134/77; O2SAT 96
--- OUTSIDE RECORDS SUMMARY | 2025-03-10 17:55 | XMS_ITS | Clinical Summary ---
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
--- OUTSIDE RECORDS SUMMARY | 2025-03-10 17:55 | XMS_ITS | Encounter Summary ---
[facility] Address 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
--- NOTE | 2025-03-10 18:05 | USR_ITS ---
PROCEDURE INFORMATION: Exam: US Duplex Bilateral Lower Extremity Arteries Exam date and time: 03/10/2025 6:39 PM Age: 65 years old Clinical indication: Other: Bilateral lower extremity tingling; Additional info: Tingling/paresthesia le TECHNIQUE: Imaging protocol: Real-time ultrasound scan of the arteries of the bilateral lower extremities with 2-D rae scale, color Doppler flow and spectral waveform analysis. Images documented and saved. COMPARISON: CT abdomen pelvis wo con [id number] 11/29/2024 5:19 PM FINDINGS: Right common femoral artery: No occlusion or significant stenosis. Multiphasic waveform. Right superficial femoral artery: No occlusion or significant stenosis. Multiphasic waveform. Right popliteal artery: No occlusion or significant stenosis. Multiphasic waveform. Right calf/foot arteries: No occlusion or significant stenosis in the visualized arteries. Normal waveforms. Dorsalis pedis artery is patent. Left common femoral artery: No occlusion or significant stenosis. Multiphasic waveform. Left superficial femoral artery: No occlusion or significant stenosis. Multiphasic waveform. Left popliteal artery: No occlusion or significant stenosis. Multiphasic waveform. Left calf/foot arteries: No occlusion or significant stenosis in the visualized arteries. Normal waveforms. Dorsalis pedis artery is patent. US/[place] [id number] IMPRESSION: No stenosis or occlusion.
--- NOTE | 2025-03-10 18:15 | W.ED.EXTPRO ---
HPI - Extremity Problem General: Chief complaint: Extremity Problem,Nontraumatic Stated complaint: intermittent numbness of feet and hands History of Present Illness: 65-year-old male with a chief complaint of paresthesias at home, now resolved. He states he lives in an assisted living facility and his nurse was concerned due to the level of pain he was in. Patient states that he had tingling, [id number] in his feet and bilateral upper extremities. He states he has had this before but this usually spontaneously resolves. Patient is currently asymptomatic and is quite comfortable. He states that he has never had this sensation with exertion. Patient denies fever, chest pain, shortness of breath, hemoptysis, syncope, abdominal pain, nausea, vomiting, diarrhea or dysuria. Pins and needle sensation was from elbow distally on both sides and in both feet. Patient has a history of high cholesterol and gout. He denies history of CVA, ND or diabetes. Patient is not complaining of vision changes, difficulty with speech, swelling, focal weakness, unilateral numbness/paresthesia, coordination difficulty. Related Data Home Medications ?Medication ?Instructions ?Recorded ?Confirmed allopurinol 300 mg tablet 300 mg PO DAILY@11/03/20 01/13/25 metoprolol succinate 25 mg 25 mg PO DAILY@11/03/20 01/13/25 tablet,extended release 24 hr bismuth subsalicylate 262 mg/15 mL 524 mg PO Q4H PRN Diarrhea 03/30/21 01/13/25 oral suspension (Pepto-Bismol) cholecalciferol (vitamin D3) 25 25 mcg PO DAILY@03/30/21 01/13/25 mcg (1,000 unit) tablet (Vitamin D3) omeprazole 20 mg capsule,delayed 20 mg PO DAILY@03/30/21 01/13/25 release cyanocobalamin (vitamin B-12) 1,000 mcg PO DAILY 07/09/23 01/13/25 1,000 mcg capsule fluticasone furoate 100 1 inh inhalation DAILY 10/08/23 01/13/25 mcg/actuation blister powder for inhalation (Arnuity Ellipta) menthol 3.2 mg lozenges ([place] 3.2 mg mucous membrane Q4H PRN 10/08/23 01/13/25 Cough Drops) cough or throat irritation hydrocodone 5 mg-acetaminophen 325 1 - 2 tab PO .Q4-6H PRN Pain 06/26/24 01/13/25 mg tablet triamcinolone acetonide 0.1 % 1 applic topical BID PRN dry skin 06/26/24 01/13/25 topical cream or itching lisinopril 30 mg tablet 30 mg PO DAILY 11/03/24 01/13/25 aspirin 81 mg tablet,delayed 81 mg PO DAILY 11/25/24 01/13/25 release (Nancy Low Dose Aspirin) Previous Rx's ?Medication ?Instructions ?Recorded Bone Growth Stimulator #1 ea 06/22/24 ondansetron HCl 4 mg tablet 4 mg PO Q8H PRN nausea and 06/26/24 vomiting #14 tabs escitalopram oxalate 20 mg tablet 20 mg PO DAILY@07 #30 tabs 10/14/24 (Lexapro) divalproex 500 mg tablet,extended See Rx Instructions .Route 02/11/25 release 24 hr .COMPLEX #90 tabs Allergies Allergy/AdvReac Type Severity Reaction Status Date / Time ibuprofen Allergy Unknown Verified 01/13/25 10:49 Sulfa (Sulfonamide Allergy Unknown Verified 01/13/25 10:49 Antibiotics) sulfamethoxazole (From Allergy Unknown Verified 01/13/25 10:49 Bactrim) trimethoprim (From Bactrim) Allergy Unknown Verified 01/13/25 10:49 [facility] Medical History (Updated 03/10/25 @ 19:38 by Keli Faith MD) Psychiatric care HTN (hypertension) Surgical History History of cholecystectomy Social History Smoking and tobacco/nicotine status: unknown if used tobacco/nicotine Physical Exam Narrative: EXAM NARRATIVE: Vital signs were reviewed. Patient is alert and oriented. Patient is breathing comfortably, no increased WOB or accessory muscle use. SpO2 is above 95% on RA. Patient has clear lung sounds bilaterally, no wheezing, rhonchi or crackles noted. Normal heart sounds. No hypotension or tachycardia. Abdomen is soft, nondistended nontender. Patient is moving all extremities, no deformity or gross injury. Neuro: Awake, alert, strength equal bilaterally. No sensory defict. Able to perform FNF, heel to taylor. Ambulatory. CRANIAL NERVES: II: Pupils equal and reactive, III, IV, : EOM intact, no gaze preference or deviation, no nystagmus. V: normal sensation in V1, V2, and V3 segments bilaterally VII: no asymmetry, no nasolabial fold flattening VIII: normal hearing to speech IX, X: normal palatal elevation, no uvular deviation XI: 5/5 head turn and 5/5 shoulder shrug bilaterally XII: midline tongue protrusion Course Vital Signs: Vital signs: Vital Signs Temperature 98.1 F 03/10/25 17:44 Pulse Rate 74 03/10/25 17:44 Respiratory Rate 18 03/10/25 17:44 Blood Pressure 134/77 03/10/25 17:49 Pulse Oximetry 96 03/10/25 17:49 Oxygen Delivery Me thod Room Air 03/10/25 17:49 MDM - Extremity (Nontraumatic) Medical Decision Making 65-year-old male presenting with a chief complaint of distal pins and needle sensation in all extremities that spontaneously resolved prior to arrival. Patient is now asymptomatic. Differential diagnosis includes but is not limited to, nutritional deficiencies, anemia, vitamin deficiency, vitamin deficiency, MS, CVA, peripheral vascular disease, other. On initial exam, patient was he medically stable and nontoxic-appearing and has a nonfocal neurologic exam. He was evaluated CBC, BMP, magnesium and AILYN. Patient has a normal white blood cell count, normal H/H, no electrolyte abnormalities. Distribution of paresthesia is not consistent w/CVA given it is distal to elbow joints and in feet. Would not expect MS flare to resolve this quickly and prior to arrival. Will follow-up on AILYN study but at this time patient is asymptomatic and is stable for discharge. Patient was counseled on return precautions, supportive care measures at home and advised to follow-up with his primary care physician. Lab Data 03/10/25 18:23 03/10/25 18: Laboratory Results WBC 7.13 10^3/uL (3.29-11.43) 03/10/25 18: RBC 3.95 10^6/uL (3.85-5.65) 03/10/25 18: Hgb 12.60 g/dL (11.27-16.99) 03/10/25 18: Hct 38.0 % (37-53) 03/10/25 18:23 MCV 96.2 fl (82-101) 03/10/25 18:23 MCH 31.9 pg (27-33) 03/10/25 18:23 MCHC 33.2 g/dL (30-55) 03/10/25 18:23 RDW 12.6 % (12.1-15.1) 03/10/25 18:23 Plt Count 168 10^3/cmm (157-399) 03/10/25 18:23 MPV 12.4 fL (7.4-10.4) H 03/10/25 18:23 Neut % (Auto) 61.2 % 03/10/25 18:23 Lymph % (Auto) 24.8 % 03/10/25 18:23 [place] % (Auto) 7.9 % 03/10/25 18:23 Eos % (Auto) 5.0 % 03/10/25 18:23 Baso % (Auto) 1.0 % 03/10/25 18:23 Neut # (Auto) 4.36 10^3/uL (1.8-7.7) 03/10/25 18:23 Lymph # (Auto) 1.8 10^3/uL (0.8-4.8) 03/10/25 18:23 [place] # (Auto) 0.6 10^3/uL (0.2-0.9) 03/10/25 18:23 Eos # (Auto) 0.4 10^3/uL (0.0-0.8) 03/10/25 18:23 Baso # (Auto) 0.1 10^3/uL (0.0-0.1) 03/10/25 18:23 Nucleated RBC % (auto) 0 % 03/10/25 18:23 Nucleated RBCs # 0.0 /100WBC 03/10/25 18:23 Sodium 142 mmol/L (136-145) 03/10/25 18:23 Potassium 4.1 mmol/L (3.5-5.1) 03/10/25 18:23 Chloride 103 mmol/L (98-107) 03/10/25 18:23 Carbon Dioxide 29 mmol/L (22-29) 03/10/25 18:23 Anion Gap 14.1 (5-19) 09/03/25 18:23 BUN 13 mg/dL (8-23) 03/10/25 18:23 Creatinine 0.8 mg/dL (0.7-1.2) 03/10/25 18:23 GFR Calculation 96.7 mL/min (90-130) 03/10/25 18:23 Glucose 93 mg/dL (65-115) 03/10/25 18:23 Calculated Osmolality 294 mOsm/kg (285-295) 03/10/25 18:23 Calcium 8.6 mg/dL (8.5-10.5) 03/10/25 18:23 Magnesium 1.8 mg/dL (1.7-2.3) 03/10/25 18:23 XR interpretation done by ED provider, pending radiology final review Discharge Plan Discharge Patient Disposition: Home Clinical Impression: Pins and needles sensation Condition: Stable Prescriptions: No Action allopurinol 300 mg tablet 300 mg PO DAILY@07 metoprolol succinate 25 mg tablet extended release 24 hr 25 mg PO DAILY@07 Arnuity Ellipta 100 mcg/actuation blister with device 1 inh inhalation DAILY [place] Cough Drops 3.2 mg lozenge 3.2 mg mucous membrane Q4H PRN (Reason: cough or throat irritation) cyanocobalamin (vitamin B-12) 1,000 mcg capsule 1,000 mcg PO DAILY lisinopril 30 mg tablet 30 mg PO DAILY escitalopram oxalate [Lexapro] 20 mg tablet 20 mg PO DAILY@07 Qty: 30 11RF (DME) Bone Growth Stimulator See Rx Instructions .Route .MEDSUPPLY Qty: 1 0RF Rx Instructions: As directed divalproex 500 mg tablet extended release 24 hr See Rx Instructions .ROUTE .COMPLEX Qty: 90 3RF Dose Instruction: TAKE ONE TABLET BY MOUTH EVERY DAY Rx Instructions: TAKE ONE TABLET BY MOUTH EVERY DAY bismuth subsalicylate [Pepto-Bismol] 262 mg/15 mL Suspension 524 mg PO Q4H PRN (Reason: Diarrhea) omeprazole 20 mg Capsule,Delayed Release(Dr/Ec) 20 mg PO DAILY@07 cholecalciferol (vitamin D3) [Vitamin D3] 25 mcg (1,000 unit) Tablet 25 mcg PO DAILY@07 triamcinolone acetonide 0.1 % cream 1 applic TOPICAL BID PRN (Reason: dry skin or itching) hydrocodone-acetaminophen 5-325 mg tablet 1 - 2 tab PO .Q4-6H PRN (Reason: Pain) ondansetron HCl 4 mg tablet 4 mg PO Q8H PRN (Reason: nausea and vomiting) Qty: 14 0RF aspirin [Nancy Low Dose Aspirin] 81 mg Tablet,Delayed Release (Dr/Ec) 81 mg PO DAILY Discharge Orders: Discharge ED (Routine); Ordered 03/10/25 Ordered By: Keli Faith Referrals: Matthew Sanchez MD [Primary Care Provider, Family Practice] Patient Instructions: Paresthesia (ED), Opioid Safety, Pain Management, Patient Portal & [place] Instructions Activity Restrictions/Additional Instructions: Please continue to monitor your condition closely at home. Take Ibuprofen 400mg and Tylenol 500-1000mg every six hours for pain and inflammation. If your condition worsens or additional concerns arise, please return promptly to the emergency department for reassessment. Follow up with your primary care doctor in one week. Talk to your doctor about additional tests as to what may be causing pins and needles sensation in your arms and legs. Print Language: [place] Coding Level of Care Code ED Safety And Health Manager for Bekah Pollock
[2025-03-10 18:32] LABS: Hematocrit 38.0 % (37-53); Hemoglobin 12.60 g/dL (11.27-16.99); Mean Corpuscular HGB Conc 33.2 g/dL (30-55); Mean Corpuscular Hemoglobin 31.9 pg (27-33); Mean Corpuscular Volume 96.2 fl (82-101); Nucleated Red Blood Cells % 0 %; Platelet Count 168 10^3/cmm (157-399); Red Blood Count 3.95 10^6/uL (3.85-5.65); White Blood Count 7.13 10^3/uL (3.29-11.43)
[2025-03-10 18:49] LABS: Anion Gap 14.1 (5-19); Blood Urea Nitrogen 13 mg/dL (8-23); Calcium 8.6 mg/dL (8.5-10.5); Carbon Dioxide 29 mmol/L (22-29); Chloride 103 mmol/L (98-107); Glucose 93 mg/dL (65-115); Magnesium 1.8 mg/dL (1.7-2.3); Osmolality Calculated 294 mOsm/kg (285-295); Potassium 4.1 mmol/L (3.5-5.1); Sodium 142 mmol/L (136-145)
[2025-03-10 19:54] VITALS: BP 119/81; PULSE 68; RESP 16; O2SAT 98
== END 2025-03-10 19:55 | disposition home or self-care (01) ==
PROVIDERS: Emergency Provider Emergency Medicine; PCP Family Medicine
DX: R20.2 Paresthesia of skin (principal); I10 Essential (primary) hypertension; Z79.82 Long term (current) use of aspirin
CPT/HCPCS: 36415; 80048; 83735; 85025; 93925; 99284

== ENCOUNTER → 2025-05-04 12:34 | Outpatient (BNVA) | payer MEDICARE, MEDICAID, SELFPAY | PROVIDERS: PCP Family Medicine; Visit Provider Specialist | DX: R40.4 Transient alteration of awareness (principal); F89 Unspecified disorder of psychological development; I44.7 Left bundle-branch block, unspecified; R03.0 Elevated blood-pressure reading, without diagnosis of hypertension; R74.01 Elevation of levels of liver transaminase levels | CPT/HCPCS: 99214 ==